=== PATIENT | male | born 1945 | race Caucasian/White ===

== ENCOUNTER 2017-05-02 10:33 | Inpatient (IN) | payer MEDICARE, OTHER, SELFPAY ==
[2017-04-18 11:41] VITALS: BP 125/73; PULSE 50; RESP 16; TEMP 36.6; O2SAT 97; BMI 31.7
[2017-04-18 12:16] LABS: Absolute Lymphocyte Count 1.09 X10^3/ul (0.83-4.51); Absolute Neutrophil Count 2.8 X10^3/uL (2.0-7.7); Basophil# 0.01 X10^3/uL; Basophil% 0.2 % (0-1); Eosinophil# 0.13 X10^3/uL; Eosinophils% 2.9 % (0-5); Hematocrit 36.2 % (40-54); Lymphocyte # 1.09 X10^3/ul (4.0); Lymphocyte % 24.3 % (19-41); Mean Corp Hgb Conc 33.1 g/gl (32-36); Mean Corpuscular Hgb 32.4 pg (27.0-32.0); Mean Corpuscular Volume 97.8 fL (80-94); Monocyte# 0.44 X10^3/uL; Monocyte% 9.8 % (0-10); Neutrophil # 2.82 X10^3/uL (2.7-7.7); Neutrophil % 62.8 % (47-70); POSITIVE COUNT NO; POSITIVE DIFFERENTIAL NO; POSITIVE MORPHOLOGY NO; Platelet Count 166 K/mm3 (150-450); RBC Distribution Width CV 14.1 % (11.6-14.6); RBC Distribution Width SD 48.4 fl (35.1-43.9); White Blood Count 4.5 K/mm3 (4.4-11.0)
[2017-04-18 12:44] LABS: Anion Gap 7 (5-15); BUN 17 mg/dL (7-18); BUN/Creat Ratio 18.4 RATIO (10-20); Calcium,Total 8.8 mg/dL (8.5-10.1); Chloride 103 mmol/L (98-107); Creatinine, Serum 0.92 mg/dL (0.70-1.30); EST Glomerular Filtration Rate 86 mL/min (>60); Est Glom Filt Rate - Afr Amer 104 mL/min (>60); Estimated Creatinine Clearance 85.63 ml/min; Glucose 98 mg/dL (74-106); Sodium Level 139 mmol/L (136-145)
--- NOTE | 2017-04-19 14:10 | PCM.HP.BLA ---
History and Physical DATE OF SERVICE: 05/02/2017 SCHEDULED PROCEDURE: Left total knee arthroplasty HISTORY OF PRESENT ILLNESS: This is a 71-year-old male who is in the left knee for approximately 8 years. Patient's pain is constant, intermittent, aching, and sharp. Patient's pain is increased with going up and down stairs, walking any amount of distance, and sitting for extended periods of time. Patient has difficult time accomplishing activities including housework, shopping, and leisure activities such as playing with grandchildren with sports. Patient feels unsafe with use of ladders. He has tripped, stumbled, and fallen secondary to his knee pain. Patient has tried conservative measures consisting of rest, ice, heat, elevation with only short-term improvement. Patient has been through formal physical therapy and home exercises with no relief in symptoms. He has had a previous cortisone injection and Synvisc injection with no relief in symptoms. Patient has had a previous left knee arthroscopy in [address] Carr. After failing conservative treatment measures and discussing all treatment options with Dr. Hartley, the patient would like to proceed with a left knee arthroplasty. Patient currently is using a cane intermittently for ambulatory assistance. Patient does have a significant medical history pertinent for coronary artery disease, atrial fibrillation, rheumatoid arthritis, hypertension, sleep apnea with the use of a CPAP machine, gastroesophageal reflux disease with Carey's esophagitis. He currently denies any chest pain, shortness of breath, fevers chills, recent infections. Patient is currently on Eliquis due to intermittent atrial fibrillation. Patient also has rheumatoid arthritis in which he requires methotrexate. We are obtaining surgical clearance from patient's primary care physician Dr. 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 REVIEW OF SYSTEMS: ROS: Const: Denies anorexia, change in appetite, fever, difficulty sleeping, weight change. CV: Reports irregular heartbeat, but denies chest pain, heart murmur and peripheral vascular disease. Resp: Denies asthma, cough, pneumonia, sleep apnea, shortness of breath, tuberculosis and wheezing. GI: Denies constipation, diarrhea, heartburn, nausea, rectal itching, bloody stools and vomiting. : . (F Genital Sx) Denies incontinence. Musculo: Reports leg swelling, pain and trouble walking, but denies weakness. Skin: Denies Raynaud's, history of shingles and tattoo. Neuro: Denies ambulatory dysfunction, dizziness, numbness/tingling and tremor. Psych: Denies anxiety, depression, insomnia, mental illness and stress. Moe/Lymph: Denies anemia, bleeding/bruising tendency and past transfusion. Reviewed, no changes. PAST MEDICAL HISTORY: Advance Care Plan: Other Directive, LIVING WILL Effective Date: 04/12/2017 Other Directive, POA Effective Date: 04/12/2017 PMH: Medical Problems: Coronary Artery Disease (CAD), Kidney Stones, Cholesterol, High Blood Pressure, Sleep Apnea, Rheumatoid Arthritis, Gerd with carey's esophagus, Atrial fibrillation, Benign prostatic hyperplasia Accidents: Fracture - (1964) RT PATELLA Surgical Hx: RT Knee- Patella - (1964) TAINA Laminectomy - (1979) L3 - L4 LT Knee Arthroscopy - (10/15/2009) [email or web address] RT Shoulder Arthroscopy W/Rotator Cuff Repair - (05/20/2010) MSK @ [facility] Anesthesia Complications: None Assistive Devices: Glasses - READING Reviewed and updated. SOCIAL HISTORY: SH: Marital: .Occupation: [employer].Work Status: Retired.Hand Dominance: Right-handed. Personal Habits: Cigarette Use: Never.Alcohol: Occasionally.Drug Use: Denies Use.Enjoy Exercising: Daily. Reviewed and updated. VITALS: Ht: 74 Wt: 242lb Wt k.771 BMI: 31.1 BP: 104/66 Pulse: 68 Resp: 16 T: 98.1 T: 36.7C ALLERGIES: No Known Drug Allergy MEDICATIONS: Eliquis 2.5 mg one by mouth every 12 hours x 15 days, Metoprolol Succinate ER 25 mg 1 by mouth every day, Methotrexate 2.5 mg 10 tabs every sunday, Flecainide Acetate 150 mg 1po qday, Lovastatin 40 mg 1 by mouth every day, Vitamin D3 2000 Unit 1 by mouth every day, Folic Acid 1 mg 1 by mouth every day, Leia Allergy 60 mg 1po qday, Ranitidine HCL 150 mg/6ml 1po bid, Hydroxychloroquine Sulfate 200 mg 2 by mouth every day, Tamsulosin HCL 0.4 mg 1 by mouth every day, Multi Vitamin 1 by mouth every day PRE-OP EXAM: General appearance:NORMAL Other: Eyes: Conjunctivae and lids: NORMAL Pupils: ERR Ears, Nose, Mouth, and Throat: NORMAL Other: Inspection of lips, teeth and gums: NORMAL Other: Neck: Examination of neck: no masses noted. Respiratory: Assessment of respiratory effort: NORMAL Other: Ausculation of lungs: clear to ausculation no wheeses, ronchi or rales. Cardiovascular: Ausculation of heart: regular rate and rhythem, no mummurs, gallops or rubs. Exam of carotid arteries: NORMAL Other: Gastrointestinal: Exam of abdomen: soft, nontender, nondistended bowel sounds present. Lymphatic: Palpation of nodes in neck: NORMAL Other: Palpation of nodes in Axillae: NORMAL Other: Neurological: see below Psychiatric: Orientation to time, place and person: NORMAL Other: Mood and affect: NORMAL Other: PHYSICAL EXAMINATION: Patient walks with an antalgic gait. Patient has varus deformity of bilateral knees. Patient has moderate effusion to the left knee. Range of motion is +5? of extension to 110? of flexion with increased pain and crepitus. Patient has medial joint line tenderness. Varus alignment is not correctable at 30?. Sensations intact to light touch. IMAGING STUDIES: 1. X-rays were obtained on January 01, 2017 at outside institution of bilateral knees which does reveal left knee severe osteoarthritis consistent with severe joint space narrowing, osteophyte formation, subchondral sclerosis, and varus deformity. Right knee shows severe osteoarthritis with osteophyte formation, subchondral sclerosis, and severe joint space narrowing and varus alignment. Right knee on sunrise view does show surgical wire in the patella. IMPRESSION: 1. Severe left knee osteoarthritis with varus deformity 2. Severe right knee osteoarthritis with varus alignment 3. Coronary artery disease 4. Hypercholesterolemia 5. Hypertension 6. Sleep apnea with CPAP use 7. Rheumatoid arthritis on methotrexate 8. Gastroesophageal reflux disease with Carey's esophagitis 9. History of atrial fibrillation: Currently regular rate and rhythm on Eliquis 10. Benign prostatic hyperplasia 11. History of kidney stones PLAN: Dr. Hartley did discuss and review with the patient all treatment options including surgical versus nonsurgical. Patient wishes to proceed with above-stated procedure. Potential risks, benefits, and complications of this procedure were discussed in detail including but not limited to , infection, nerve and blood vessel damage, persistent pain, numbness, tingling, paresthesias, blood clot, pulmonary embolism, and requirement for further surgery. The patient expressed full understanding has no further questions for the doctor. Patient does agree to proceed with the above-stated procedure and has signed the surgery consent form. Surgical clearance will be obtained by primary care physician and dance professor. Patient will undergo preoperative lab work and EKG. ___ I have re-examined the patient. There are no clinical changes since date of exam. ___ See progress notes for changes. ___ Dictated on admission Date: Time: Signature:
--- NOTE | 2017-04-19 14:21 | HP.PCM_ITS ---
History and Physical DATE OF SERVICE: 05/02/2017 SCHEDULED PROCEDURE: Left total knee arthroplasty HISTORY OF PRESENT ILLNESS: This is a 71-year-old male who is in the left knee for approximately 8 years. Patient's pain is constant, intermittent, aching, and sharp. Patient's pain is increased with going up and down stairs, walking any amount of distance, and sitting for extended periods of time. Patient has difficult time accomplishing activities including housework, shopping, and leisure activities such as playing with grandchildren with sports. Patient feels unsafe with use of ladders. He has tripped, stumbled, and fallen secondary to his knee pain. Patient has tried conservative measures consisting of rest, ice, heat, elevation with only short-term improvement. Patient has been through formal physical therapy and home exercises with no relief in symptoms. He has had a previous cortisone injection and Synvisc injection with no relief in symptoms. Patient has had a previous left knee arthroscopy [place] [address] Carr. After failing conservative treatment measures and discussing all treatment options with Dr. Hartley, the patient would like to proceed with a left knee arthroplasty. Patient currently is using a cane intermittently for ambulatory assistance. Patient does have a significant medical history pertinent for coronary artery disease, atrial fibrillation, rheumatoid arthritis, hypertension , sleep apnea with the use of a CPAP machine, gastroesophageal reflux disease with Carey's esophagitis. He currently denies any chest pain, shortness of breath, fevers chills, recent infections. Patient is currently on Eliquis due to intermittent atrial fibrillation. Patient also has rheumatoid arthritis in which he requires methotrexate. We are obtaining surgical clearance from patient's primary care physician Dr. 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 REVIEW OF SYSTEMS: ROS: Const: Denies anorexia, change in appetite, fever, difficulty sleeping, weight change. CV: Reports irregular heartbeat, but denies chest pain, heart murmur and peripheral vascular disease. Resp: Denies asthma, cough, pneumonia, sleep apnea, shortness of breath, tuberculosis and wheezing. GI: Denies constipation, diarrhea, heartburn, nausea, rectal itching, bloody stools and vomiting. : . (F Genital Sx) Denies incontinence. Musculo: Reports leg swelling, pain and trouble walking, but denies weakness. Skin: Denies Raynaud's, history of shingles and tattoo. Neuro: Denies ambulatory dysfunction, dizziness, numbness/tingling and tremor. Psych: Denies anxiety, depression, insomnia, mental illness and stress. Moe/Lymph: Denies anemia, bleeding/bruising tendency and past transfusion. Reviewed, no changes. PAST MEDICAL HISTORY: Advance Care Plan: Other Directive, LIVING WILL Effective Date: 04/12/2017 Other Directive, POA Effective Date: 04/12/2017 PMH: Medical Problems: Coronary Artery Disease (CAD), Kidney Stones, Cholesterol, High Blood Pressure, Sleep Apnea, Rheumatoid Arthritis, Gerd with carey's esophagus, Atrial fibrillation, Benign prostatic hyperplasia Accidents: Fracture - (1964) RT PATELLA Surgical Hx: RT Knee- Patella - (1964) TANIA Laminectomy - (1979) L3 - L4 LT Knee Arthroscopy - (10/15/2009) [email or web address] RT Shoulder Arthroscopy W/Rotator Cuff Repair - (05/20/2010) MSK @ [facility] Anesthesia Complications: None Assistive Devices: Glasses - READING Reviewed and updated. SOCIAL HISTORY: SH: Marital: .Occupation: [employer].Work Status: Retired.Hand Dominance: Right- handed. Personal Habits: Cigarette Use: Never.Alcohol: Occasionally.Drug Use: Denies Use.Enjoy Exercising: Daily. Reviewed and updated. VITALS: Ht: 74 Wt: 242lb Wt k.771 BMI: 31.1 BP: 104/66 Pulse: 68 Resp: 16 T: 98.1 T: 36.7C ALLERGIES: No Known Drug Allergy MEDICATIONS: Eliquis 2.5 mg one by mouth every 12 hours x 15 days, Metoprolol Succinate ER 25 mg 1 by mouth every day, Methotrexate 2.5 mg 10 tabs every sunday, Flecainide Acetate 150 mg 1po qday, Lovastatin 40 mg 1 by mouth every day, Vitamin D3 2000 Unit 1 by mouth every day, Folic Acid 1 mg 1 by mouth every day , Leia Allergy 60 mg 1po qday, Ranitidine HCL 150 mg/6ml 1po bid, Hydroxychloroquine Sulfate 200 mg 2 by mouth every day, Tamsulosin HCL 0.4 mg 1 by mouth every day, Multi Vitamin 1 by mouth every day PRE-OP EXAM: General appearance:NORMAL Other: Eyes: Conjunctivae and lids: NORMAL Pupils: ERR Ears, Nose, Mouth, and Throat: NORMAL Other: Inspection of lips, teeth and gums: NORMAL Other: Neck: Examination of neck: no masses noted. Respiratory: Assessment of respiratory effort: NORMAL Other: Ausculation of lungs: clear to ausculation no wheeses, ronchi or rales. Cardiovascular: Ausculation of heart: regular rate and rhythem, no mummurs, gallops or rubs. Exam of carotid arteries: NORMAL Other: Gastrointestinal: Exam of abdomen: soft, nontender, nondistended bowel sounds present. Lymphatic: Palpation of nodes in neck: NORMAL Other: Palpation of nodes in Axillae: NORMAL Other: Neurological: see below Psychiatric: Orientation to time, place and person: NORMAL Other: Mood and affect: NORMAL Other: PHYSICAL EXAMINATION: Patient walks with an antalgic gait. Patient has varus deformity of bilateral knees. Patient has moderate effusion to the left knee. Range of motion is +5? of extension to 110? of flexion with increased pain and crepitus. Patient has medial joint line tenderness. Varus alignment is not correctable at 30?. Sensations intact to light touch. IMAGING STUDIES: 1. X-rays were obtained on January 01, 2017 at outside institution of bilateral knees which does reveal left knee severe osteoarthritis consistent with severe joint space narrowing, osteophyte formation, subchondral sclerosis, and varus deformity. Right knee shows severe osteoarthritis with osteophyte formation, subchondral sclerosis, and severe joint space narrowing and varus alignment. Right knee on sunrise view does show surgical wire in the patella. IMPRESSION: 1. Severe left knee osteoarthritis with varus deformity 2. Severe right knee osteoarthritis with varus alignment 3. Coronary artery disease 4. Hypercholesterolemia 5. Hypertension 6. Sleep apnea with CPAP use 7. Rheumatoid arthritis on methotrexate 8. Gastroesophageal reflux disease with Carey's esophagitis 9. History of atrial fibrillation: Currently regular rate and rhythm on Eliquis 10. Benign prostatic hyperplasia 11. History of kidney stones PLAN: Dr. Hartley did discuss and review with the patient all treatment options including surgical versus nonsurgical. Patient wishes to proceed with above- stated procedure. Potential risks, benefits, and complications of this procedure were discussed in detail including but not limited to , infection , nerve and blood vessel damage, persistent pain, numbness, tingling, paresthesias, blood clot, pulmonary embolism, and requirement for further surgery. The patient expressed full understanding has no further questions for the doctor. Patient does agree to proceed with the above-stated procedure and has signed the surgery consent form. 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 Patient will undergo preoperative lab work and EKG. ___ I have re-examined the patient. There are no clinical changes since date of exam. ___ See progress notes for changes. ___ Dictated on admission Date: Time: Signature:
[2017-04-26 17:37] LABS: Albumin, Serum 3.6 g/dL (3.2-5.0)
[2017-05-02] VITALS (10 sets, daily range): BP systolic 109–126; BP diastolic 51–72; PULSE 51–78; RESP 16–18; TEMP 36.3–36.8; O2SAT 92–98; BMI 31.7
[2017-05-02] MEDS: Lactated Ringers 1,000 ML 999 ML IV (12:00)
[2017-05-02] MEDS: Celecoxib 200 MG Capsule 400 MG PO (12:24)
[2017-05-02] MEDS: oxyCODONE HCl Cr 10 MG Tablet PO (12:25)
[2017-05-02] MEDS: Acetaminophen 500 MG Tablet 1000 MG PO ×2 (12:25→23:22)
[2017-05-02] MEDS: Cefazolin 2 GM in 0.9% Normal Saline 100 ML IV (12:56)
--- NOTE | 2017-05-02 15:31 | PCM.OPRPT ---
Report of Operation Date of Procedure: 05/02/17 Pre-Operative Diagnosis: Left knee primary osteoarthritis Post-Operative Diagnosis: Left knee primary osteoarthritis Surgery/Procedure Performed:: Left total knee replacement, posterior stabilized Description of Surgical Findings:: Stable knee with good patella tracking capsule inspector: Terry Parker Type of Anesthesia:: Spinal Anesthesiologist: Del Benites Special Medications: 2 g Ancef, 2 grams TXA lavage in wound at end of case, 10 mg Decadron, joint cocktail (5 mg Duramorph, 30 mL of 0.5% Ropivicaine, 1000 units of epinephrine, 30 mg of Toradol) Specimen's removed: Bony cuts Estimated Blood Loss (mL): 50 mL Fluids Replaced: 200 mL crystalloid Description of Procedure: Implants used: 1. Jhon size 5 triathlon posterior stabilized distal femoral component 2. Jhon size 6 universal tibial baseplate 3. Jhon X3 11 mm PS polyethylene 4. Jhon X3 40 mm asymmetric patella Brief history operative indications: 71-year-old m with history of left knee osteoarthritis with radiographic findings with loss of joint space, osteophyte formation and subchondral sclerosis. Failed conservative measures as mentioned in the H&P. Discussion of total knee arthroplasty as well as risk and benefits were discussed the patient including but not limited to blood loss, DVTs, PEs, neurovascular damage, general risk of anesthesia including loss of life, and stiffness or instability were discussed with patient. Patient demonstrated understanding and was able to sign informed consent. Procedure: On the date of procedure patient's left lower extremity was marked in the preoperative area. The patient was then taken back to the operating room where the patient was placed on the table in the supine position. All bony prominences were identified a well-padded. Anesthesia assumed control of the C-spine and airway and remained controlled throughout the remainder of the procedure. A tourniquet was placed on the left upper thigh and the leg was prepped in a sterile fashion. The surgeon then scrubbed at this time .Upon reentering the room left lower extremity was draped in a standard orthopedic fashion. A timeout was then called and everyone agreed upon the side, the site, the procedure to be performed, patient's identity and antibiotics given. Esmarch bandage was used to exsanguinate the extremity and the tourniquet was placed up to 250 mmHg with the knee in flexion. A midline skin incision was made and sharp dissection was taken down through skin subcutaneous tissue and fat. The standard medial parapatellar incision was made and the patella was subluxed laterally. The standard deep MCL release was done and the fat pad was resected. Next our attention was directed to the femur. Navigation pins were placed, navigation was registered. The distal femoral cutting block was pinned into place and 9 mm of distal femur resection was completed. The distal femoral cut was verified with navigation. The knee was then placed in deep flexion in the standard [employer]ie App sizing guide was used to place the femoral component in 3? external rotation based on the posterior condyles. A size 5 4-in-1 cutting block was selected and pinned into place. The anterior cut was then made and checked for notching. The subsequent anterior chamfer cuts, posterior condylar cuts and posterior chamfer cuts were made while ensuring the MCL and LCL were protected. Our attention was then turned to the tibia where the navigation pins were placed, navigation was registered. [place] tibial cutting guide was used to make the appropriate tibial cut 90 degrees from the mechanical axis. Navigation was then used to verify the cut. A size 6 tibial base plate was selected. the knee was flexed to 90 degrees and the soft tissues and posterior osteophytes were removed from the joint. 40 cc of the periarticular injection was injected into the posterior medial corner of the joint. The appropriate trials were then placed on the femur and tibia. A trial polyethylene was trialed to ensure proper balancing and stability of the knee. Patella tracking, was then verified and corrected appropriately as needed. The appropriate tibial internal rotation was then marked with a bovie. Our attention was then directed to the patella. The patella was everted and a flat resection was made. The lug holes were drilled and the patella trial was placed. Patellar tracking was checked and deemed appropriate. Once we were happy lug holes were drilled for the femur and trial components were removed. the tibia was subluxed and pinned into place and the keel was punched and the canal was reamed. Final components were verified and opened, and cement was mixed in a vacuum. [place] Simplex cement was used. The wound was copiously irrigated with normal saline. When the cement was ready the components were cemented into place starting with the tibia, femur and finally the patella. The trial poly component was placed and the knee was placed in full extension. All excess cement was removed in the process. Once the cement had cured the tracking, alignment and balance were verified and a size 1 mm polyethylene component was placed. Once the final components were placed the wound was copiously irrigated with normal saline solution and the periarticular injection was given. The wound was closed in a layer blake fashion using #1 vicryl interrupted sutures for the arthrotomy, 2-0 interrupted Vicryl suture for the subcuticular layer and marlo for final skin closure. A sterile compressive dressing was then placed. The patient was then awakened from anesthesia, transferred to the [facility] and transferred to the PACU for recovery. Post op plan DVT ppx: ASA 325mg, thigh high compression stockings Follow up: in office in 2 weeks for wound check PT: to start POD #0 at hospital, outpatient PT should be arranged. My physician resident assistant was a vital part of this case. He was important in appropriate retraction during the case, and protection of soft tissues during bony cuts. His intimate knowledge of the case and my steps aided in safe and expedient completion of the procedure as well as appropriate position of the leg during the case. He was also vital in assisting with closure under my direct supervision. Grafts/Implants Used: [place] triathlon total knee - Complications None - Admit VTE Documentation VTE Present on Admission: No VTE Mechan Device Prophylaxis: SCD's, Thigh High DAHLIA Hose VTE Pharm Prophylaxis ordered?: Yes
--- NOTE | 2017-05-02 15:35 | OP.PCM_ITS ---
Report of Operation Date of Procedure: 05/02/17 Pre-Operative Diagnosis: Left knee primary osteoarthritis Post-Operative Diagnosis: Left knee primary osteoarthritis Surgery/Procedure Performed:: Left total knee replacement, posterior stabilized Description of Surgical Findings:: Stable knee with good patella tracking clay house worker: Terry Parker Type of Anesthesia:: Spinal Anesthesiologist: Del Benites Special Medications: 2 g Ancef, 2 grams TXA lavage in wound at end of case, 10 mg Decadron, joint cocktail (5 mg Duramorph, 30 mL of 0.5% Ropivicaine, 1000 units of epinephrine, 30 mg of Toradol) Specimen's removed: Bony cuts Estimated Blood Loss (mL): 50 mL Fluids Replaced: 200 mL crystalloid Description of Procedure: Implants used: 1. Jhon size 5 triathlon posterior stabilized distal femoral component 2. Jhon size 6 universal tibial baseplate 3. Jhon X3 11 mm PS polyethylene 4. Jhon X3 40 mm asymmetric patella Brief history operative indications: 71-year-old m with history of left knee osteoarthritis with radiographic findings with loss of joint space, osteophyte formation and subchondral sclerosis. Failed conservative measures as mentioned in the H&P. Discussion of total knee arthroplasty as well as risk and benefits were discussed the patient including but not limited to blood loss, DVTs, PEs, neurovascular damage , general risk of anesthesia including loss of life, and stiffness or instability were discussed with patient. Patient demonstrated understanding and was able to sign informed consent. Procedure: On the date of procedure patient's left lower extremity was marked in the preoperative area. The patient was then taken back to the operating room where the patient was placed on the table in the supine position. All bony prominences were identified a well-padded. Anesthesia assumed control of the C- spine and airway and remained controlled throughout the remainder of the procedure. A tourniquet was placed on the left upper thigh and the leg was prepped in a sterile fashion. The surgeon then scrubbed at this time .Upon reentering the room left lower extremity was draped in a standard orthopedic fashion. A timeout was then called and everyone agreed upon the side, the site, the procedure to be performed, patient's identity and antibiotics given. Esmarch bandage was used to exsanguinate the extremity and the tourniquet was placed up to 250 mmHg with the knee in flexion. A midline skin incision was made and sharp dissection was taken down through skin subcutaneous tissue and fat. The standard medial parapatellar incision was made and the patella was subluxed laterally. The standard deep MCL release was done and the fat pad was resected. Next our attention was directed to the femur. Navigation pins were placed, navigation was registered. The distal femoral cutting block was pinned into place and 9 mm of distal femur resection was completed. The distal femoral cut was verified with navigation. The knee was then placed in deep flexion in the standard Zympi sizing guide was used to place the femoral component in 3? external rotation based on the posterior condyles. A size 5 4-in-1 cutting block was selected and pinned into place. The anterior cut was then made and checked for notching. The subsequent anterior chamfer cuts, posterior condylar cuts and posterior chamfer cuts were made while ensuring the MCL and LCL were protected. Our attention was then turned to the tibia where the navigation pins were placed , navigation was registered. [employer] tibial cutting guide was used to make the appropriate tibial cut 90 degrees from the mechanical axis. Navigation was then used to verify the cut. A size 6 tibial base plate was selected. the knee was flexed to 90 degrees and the soft tissues and posterior osteophytes were removed from the joint. 40 cc of the periarticular injection was injected into the posterior medial corner of the joint. The appropriate trials were then placed on the femur and tibia. A trial polyethylene was trialed to ensure proper balancing and stability of the knee. Patella tracking, was then verified and corrected appropriately as needed. The appropriate tibial internal rotation was then marked with a bovie. Our attention was then directed to the patella. The patella was everted and a flat resection was made. The lug holes were drilled and the patella trial was placed. Patellar tracking was checked and deemed appropriate. Once we were happy lug holes were drilled for the femur and trial components were removed. the tibia was subluxed and pinned into place and the keel was punched and the canal was reamed. Final components were verified and opened, and cement was mixed in a vacuum. Jhon Simplex cement was used. The wound was copiously irrigated with normal saline. When the cement was ready the components were cemented into place starting with the tibia, femur and finally the patella. The trial poly component was placed and the knee was placed in full extension. All excess cement was removed in the process. Once the cement had cured the tracking, alignment and balance were verified and a size 1 mm polyethylene component was placed. Once the final components were placed the wound was copiously irrigated with normal saline solution and the periarticular injection was given. The wound was closed in a layer blake fashion using #1 vicryl interrupted sutures for the arthrotomy, 2-0 interrupted Vicryl suture for the subcuticular layer and marlo for final skin closure. A sterile compressive dressing was then placed. The patient was then awakened from anesthesia, transferred [facility] and transferred to the PACU for recovery. Post op plan DVT ppx: ASA 325mg, thigh high compression stockings Follow up: in office in 2 weeks for wound check PT: to start POD #0 at hospital, outpatient PT should be arranged. My physician administrative services assistant was a vital part of this case. He was important in appropriate retraction during the case, and protection of soft tissues during bony cuts. His intimate knowledge of the case and my steps aided in safe and expedient completion of the procedure as well as appropriate position of the leg during the case. He was also vital in assisting with closure under my direct supervision. Grafts/Implants Used: Brandon triathlon total knee - Complications None - Admit VTE Documentation VTE Present on Admission: No VTE Mechan Device Prophylaxis: SCD's, Thigh High DAHLIA Hose VTE Pharm Prophylaxis ordered?: Yes
--- NOTE | 2017-05-02 15:35 | RAD_ITS ---
STUDY: X-RAY - LEFT KNEE REASON FOR EXAM: Male, 71 years old. Post operative evaluation of knee arthroplasty. TECHNIQUE: 2 view(s) of the knee. COMPARISON: None. FINDINGS: The patient is status post total knee arthroplasty. The standard femoral and tibial components are normally located without disruption or migration of the hardware. The patella has been resurfaced and is properly located. Normal postoperative soft tissue changes. Anterior incision closed with marlo. RAD/Knee 1 or 2 Views IMPRESSION: Status post left knee arthroplasty with no untoward bone, joint or hardware findings. Electronically Signed: Elise Frye MD at 17:39 EST , Service support ,
[2017-05-02] MEDS: Scopolamine 1mg/72hr Patch 1 PATCH TD (15:40)
[2017-05-02 15:51] LABS: Bedside Glucose 107 mg/dL (70-110)
--- NOTE | 2017-05-02 17:27 | PN_ITS ---
Subjective: Patient seen and examined. Patient underwent left total knee arthroplasty today , 05/02/[address] Morgan. Hospitalist services requested for medical management. He has a past medical history of coronary artery disease, hyperlipidemia, hypertension, obstructive sleep apnea, rheumatoid arthritis, GERD with Larsen's esophagus, paroxysmal atrial fibrillation, BPH. Patient denies pain currently. Denies chest pain, shortness of breath. Sensory intact to left lower extremity. Patient denies nausea, vomiting. Denies other complaints. - Physical Exam General: Alert, Oriented x3, Cooperative, No apparent distress HEENT: Atraumatic, PERRLA, EOMI, Normocephalic Neck: Supple, No JVD, Negative Carotid Bruits Lungs: Clear to auscultation, Normal air movement Cardiovascular: Regular rate, Regular Rhythm, Normal S1, Normal S2, No murmurs Abdomen: Bowel Sounds Present, Soft, Non Tender, Non-Distended Extremities: No clubbing, No cyanosis, No edema, Capillary Refill Less than 3 Seconds Skin: No rashes, No breakdown Musculoskeletal: No Tenderness to Palpation of Joints or Extremities Neurological: Cranial nerves II-XII grossly intact, Neuro grossly intact Psych/Mental Status: Normal Affect, Appropriate Vital Signs Temp Pulse Resp BP Pulse Ox 98.2 F 73 18 120/51 L 96 05/02/17 17:04 05/02/17 17:04 05/02/17 17:04 05/02/17 17:04 05/02/17 17:04 Oxygen Delivery Method Room Air Weight: 112.1 kg Body Mass Index (BMI) 31.7 Finger Stick Blood Glucose 107 Intake and Output for Last 24 Hours 04/30/17 05/01/17 05/02/17 23:59 23:59 23:59 Intake Total 2500 / 2500 Balance 2500 / 2500 POC Glucose 05/02/17 15:46 POC Glucose 107 Assessment/Plan 1. Status post left total knee arthroplasty 05/02/[address] Morgan- management per ortho. PT/OT. PRN pain regimen. Incentive spirometer. 2. CAD-continue aspirin, statin, Eliquis, beta-nina. Denies chest pain. 3. Hyperlipidemia-continue statin. 4. Hypertension-stable, continue home regimen. 5. Obstructive sleep apnea-continue home CPAP. 6. Rheumatoid arthritis-continue methotrexate, Plaquenil regimen. 7. Paroxysmal atrial fibrillation-rate controlled. Continue metoprolol, flecainide, Eliquis. 8. GERD with Larsen's esophagus-continue famotidine. 9. BPH-continue Flomax. DVT prophylaxis-Eliquis. This patient was seen by JUANITO Kern under the supervision of Dr. Sullivan.
[2017-05-02] MEDS: Cefazolin 1 GM/50 ML BAG IV (20:28)
[2017-05-02] MEDS: Lactated Ringers 1,000 ML 125 ML IV (20:28)
[2017-05-02] MEDS: Tamsulosin HCl 0.4 MG Capsule PO (23:19)
[2017-05-02] MEDS: Metoprolol Tartrate 25 MG Tablet PO (23:20)
[2017-05-02] MEDS: Atorvastatin Calcium 10 MG Tablet PO (23:20)
[2017-05-02] MEDS: Famotidine 20 MG Tablet PO (23:21)
[2017-05-02] MEDS: Senna/Docusate Sodium 1 Tablet 2 TABLET PO (23:21)
[2017-05-02] MEDS: Flecainide 150 MG Tablet 75 MG PO (23:22)
[2017-05-03 03:29] VITALS: BP 103/58; PULSE 56; RESP 18; TEMP 36.6; O2SAT 96
[2017-05-03] MEDS: Acetaminophen 500 MG Tablet 1000 MG PO ×3 (05:19→22:03)
[2017-05-03] MEDS: Cefazolin 1 GM/50 ML BAG IV (05:20)
[2017-05-03] MEDS: Lactated Ringers 1,000 ML 15 ML IV (05:20)
[2017-05-03 06:07] LABS: Hematocrit 31.8 % (40-54); Hemoglobin 10.3 g/dl (13.0-16.5); Mean Corp Hgb Conc 32.4 g/gl (32-36); Mean Corpuscular Hgb 31.4 pg (27.0-32.0); Mean Platelet Vol. 10.9 fl (6.2-12.0); Platelet Count 174 K/mm3 (150-450); RBC Distribution Width SD 49.7 fl (35.1-43.9); Red Blood Count 3.28 M/mm3 (4.6-6.2); White Blood Count 12.8 K/mm3 (4.4-11.0)
[2017-05-03 06:25] LABS: Scan Indicated on CBC? Y/N NO
[2017-05-03 06:32] LABS: Anion Gap 7 (5-15); BUN 17 mg/dL (7-18); BUN/Creat Ratio 21.6 RATIO (10-20); Calcium,Total 8.2 mg/dL (8.5-10.1); Chloride 108 mmol/L (98-107); Creatinine, Serum 0.79 mg/dL (0.70-1.30); EST Glomerular Filtration Rate 103 mL/min (>60); Est Glom Filt Rate - Afr Amer 125 mL/min (>60); Estimated Creatinine Clearance 78.78 ml/min; Glucose 112 mg/dL (74-106); Potassium 4.2 mmol/L (3.5-5.1); Sodium Level 139 mmol/L (136-145)
[2017-05-03] MEDS: Famotidine 20 MG Tablet PO ×2 (07:57→22:02)
[2017-05-03] MEDS: Senna/Docusate Sodium 1 Tablet 2 TABLET PO ×2 (07:57→22:02)
[2017-05-03] MEDS: Multivitamins,Therapeutic Tablet 1 TABLET PO (07:57)
[2017-05-03] MEDS: Flecainide 150 MG Tablet 75 MG PO ×2 (07:58→22:02)
[2017-05-03] MEDS: Folic Acid 1 MG Tablet PO (07:59)
[2017-05-03] MEDS: Aspirin E.C. 81 MG Tablet PO (07:59)
[2017-05-03] MEDS: Hydroxychloroquine 200 MG Tablet 400 MG PO (07:59)
[2017-05-03] MEDS: HYDROCHLOROTHIAZIDE 12.5 MG CAPSULE PO (07:59)
[2017-05-03] MEDS: Loratadine 10 MG Tablet 5 MG PO (08:00)
[2017-05-03] MEDS: Glucerna Shake 120 ML LIQUID PO ×2 (08:09→17:19)
[2017-05-03 08:17] VITALS: PULSE 62
[2017-05-03] MEDS: Metoprolol Tartrate 25 MG Tablet PO (08:17)
[2017-05-03] MEDS: APIXABAN 2.5 MG TABLET PO ×2 (08:17→22:00)
[2017-05-03 08:25] VITALS: BP 114/68; PULSE 62; RESP 16; TEMP 36.6; O2SAT 99
--- NOTE | 2017-05-03 09:22 | PCM.PN.HOSP ---
Subjective: Feeling good. No current complaints at this time. Vitals/I&O's: Vital Signs Temp Pulse Resp BP Pulse Ox 36.6 C 62 16 114/68 99 05/03/17 08:25 05/03/17 08:25 05/03/17 08:25 05/03/17 08:25 05/03/17 08:25 Oxygen Delivery Method Room Air Weight: 112.1 kg Body Mass Index (BMI) 31.7 Finger Stick Blood Glucose 107 Intake and Output for Last 24 Hours 05/01/17 05/02/17 05/03/17 23:59 23:59 23:59 Intake Total 2500 / 2500 1011 / 1011 Output Total 1650 / 1650 Balance 2500 / 2500 -639 / -639 General: Alert, No apparent distress HEENT: Atraumatic, Normocephalic Neck: No Nodes, Thyroid Normal Size and Texture Lungs: Clear to auscultation, Normal air movement, No rhonchi, No wheeze Cardiovascular: Regular rate, Regular Rhythm, Normal S1, Normal S2, No murmurs Abdomen: Bowel Sounds Present, Soft, Non Tender, Non-Distended, No Hepato-splenomegaly Extremities: No edema, No Calf Tenderness Psych/Mental Status: Normal Affect, Appropriate Laboratory Results 05/02/17 15:46: POC Glucose 107 05/03/17 05:32: WBC 12.8 H, RBC 3.28 L, Hgb 10.3 L, Hct 31.8 L, MCV 97.0 H, MCH 31.4, MCHC 32.4, RDW 14.0, RDW Differential 49.7 H, Plt Count 174, MPV 10.9 05/03/17 05:32: Sodium 139, Potassium 4.2, Chloride 108 H, Carbon Dioxide 24.0, Anion Gap 7, BUN 17, Creatinine 0.79, Estim Creat Clear Calc 78.78, Est GFR (MDRD) Af Amer 125, Est GFR (MDRD) Non-Af 103, BUN/Creatinine Ratio 21.6 H, Glucose 112 H, Calcium 8.2 L Current Medications Acetaminophen (Tylenol) 1,000 mg PO Q8 [facility] Last Admin: 05/03/17 05:19 Dose: 1,000 mg Apixaban (Eliquis) 2.5 mg PO Q12 [facility] Last Admin: 05/03/17 08:17 Dose: 2.5 mg Aspirin (Ecotrin) 81 mg PO DAILY@0800 [facility] Last Admin: 05/03/17 07:59 Dose: 81 mg Atorvastatin Calcium (Lipitor) 10 mg PO QHS [facility] Last Admin: 05/02/17 23:20 Dose: 10 mg Cholecalciferol (Vitamin D) 2,000 unit PO DAILY [facility] Last Admin: 05/03/17 08:01 Dose: 2,000 unit Famotidine (Pepcid) 20 mg PO BID [facility] Last Admin: 05/03/17 07:57 Dose: 20 mg Flecainide Acetate (Tambocor) 75 mg PO BID [facility] Last Admin: 05/03/17 07:58 Dose: 75 mg Folic Acid (Folic Acid) 1 mg PO DAILY@0800 [facility] Last Admin: 05/03/17 07:59 Dose: 1 mg Hydrochlorothiazide (Hydrochlorothiazide) 12.5 mg PO DAILY [facility] Last Admin: 05/03/17 07:59 Dose: 12.5 mg Hydroxychloroquine S[facility]ate ([facility]il) [facility] Last Admin: 05/03/17 07:59 Dose: 400 mg Ketorolac Tromethamine (Toradol) 15 mg IV Q6H PRN PRN PRN Reason: MILD-MOD PAIN (1-5/10) Loratadine (Claritin) 5 mg PO DAILY [facility] Last Admin: 05/03/17 08:00 Dose: 5 mg Methotrexate (Methotrexate) 20 mg PO Sa@1000 [facility] Metoprolol Tartrate (Lopressor (Beta Art)) 25 mg PO BID [facility] Last Admin: 05/03/17 08:17 Dose: 25 mg Morphine Sulfate (Morphine) 2 - 4 mg IV Q2H PRN PRN PRN Reason: SEVERE PAIN (6-10/10) Multivitamins (Multivitamin) 1 tablet PO DAILY@0800 [facility] Last Admin: 05/03/17 07:57 Dose: 1 tablet Nutritional Formula (Lactose Free) (Glucerna Shake) 120 ml PO TIDCM [facility] Last Admin: 05/03/17 08:09 Dose: 120 ml Ondansetron HCl (Zofran) 4 mg IV Q8H PRN PRN PRN Reason: NAUSEA Oxycodone HCl (Oxyir) 5 - 10 mg PO Q4H PRN PRN PRN Reason: MOD-SEVERE PAIN (4-10/10) Promethazine HCl (Phenergan (Ll)) 12.5 mg IM Q6H PRN PRN; Protocol PRN Reason: NAUSEA/VOMITING Senna/Docusate Sodium (Senokot-S, Vivian-Colace) 2 tablet PO BID [facility] Last Admin: 05/03/17 07:57 Dose: 2 tablet Sodium Chloride () 5 - 30 ml IV UD PRN PRN Reason: SALINE FLUSH Tamsulosin HCl (Flomax) 0.4 mg PO QHS [facility] Last Admin: 05/02/17 23:19 Dose: 0.4 mg Assessment/Plan 1. Status post left total knee arthroplasty Management per the primary service 2. Coronary artery disease: Continue with aspirin, statin, beta-art. 3. Paroxysmal atrial fibrillation Stable, continue with metoprolol, flecainide and Eliquis. 4. DVT prophylaxis: Patient is currently anticoagulated on Eliquis. Code Visit Inpatient E&M: 18052 Subs Hosp L2
--- NOTE | 2017-05-03 09:25 | PN_ITS ---
Subjective: Feeling good. No current complaints at this time. Vitals/I&O's: Vital Signs Temp Pulse Resp BP Pulse Ox 36.6 C 62 16 114/68 99 05/03/17 08:25 05/03/17 08:25 05/03/17 08:25 05/03/17 08:25 05/03/17 08:25 Oxygen Delivery Method Room Air Weight: 112.1 kg Body Mass Index (BMI) 31.7 Finger Stick Blood Glucose 107 Intake and Output for Last 24 Hours 05/01/17 05/02/17 05/03/17 23:59 23:59 23:59 Intake Total 2500 / 2500 1011 / 1011 Output Total 1650 / 1650 Balance 2500 / 2500 -639 / -639 General: Alert, No apparent distress HEENT: Atraumatic, Normocephalic Neck: No Nodes, Thyroid Normal Size and Texture Lungs: Clear to auscultation, Normal air movement, No rhonchi, No wheeze Cardiovascular: Regular rate, Regular Rhythm, Normal S1, Normal S2, No murmurs Abdomen: Bowel Sounds Present, Soft, Non Tender, Non-Distended, No Hepato- splenomegaly Extremities: No edema, No Calf Tenderness Psych/Mental Status: Normal Affect, Appropriate Laboratory Results 05/02/17 15:46: POC Glucose 107 05/03/17 05:32: WBC 12.8 H, RBC 3.28 L, Hgb 10.3 L, Hct 31.8 L, MCV 97.0 H, MCH 31.4, MCHC 32.4, RDW 14.0, RDW Differential 49.7 H, Plt Count 174, MPV 10.9 05/03/17 05:32: Sodium 139, Potassium 4.2, Chloride 108 H, Carbon Dioxide 24.0, Anion Gap 7, BUN 17, Creatinine 0.79, Estim Creat Clear Calc 78.78, Est GFR ( MDRD) Af Amer 125, Est GFR (MDRD) Non-Af 103, BUN/Creatinine Ratio 21.6 H, Glucose 112 H, Calcium 8.2 L Current Medications Acetaminophen (Tylenol) 1,000 mg PO Q8 [facility] Last Admin: 05/03/17 05:19 Dose: 1,000 mg Apixaban (Eliquis) 2.5 mg PO Q12 [facility] Last Admin: 05/03/17 08:17 Dose: 2.5 mg Aspirin (Ecotrin) 81 mg PO DAILY@0800 [facility] Last Admin: 05/03/17 07:59 Dose: 81 mg Atorvastatin Calcium (Lipitor) 10 mg PO QHS [facility] Last Admin: 05/02/17 23:20 Dose: 10 mg Cholecalciferol (Vitamin D) 2,000 unit PO DAILY [facility] Last Admin: 05/03/17 08:01 Dose: 2,000 unit Famotidine (Pepcid) 20 mg PO BID [facility] Last Admin: 05/03/17 07:57 Dose: 20 mg Flecainide Acetate (Tambocor) 75 mg PO BID [facility] Last Admin: 05/03/17 07:58 Dose: 75 mg Folic Acid (Folic Acid) 1 mg PO DAILY@0800 [facility] Last Admin: 05/03/17 07:59 Dose: 1 mg Hydrochlorothiazide (Hydrochlorothiazide) 12.5 mg PO DAILY [facility] Last Admin: 05/03/17 07:59 Dose: 12.5 mg Hydroxychloroquine Sulfate (Plaquenil) [facility] Last Admin: 05/03/17 07:59 Dose: 400 mg Ketorolac Tromethamine (Toradol) 15 mg IV Q6H PRN PRN PRN Reason: MILD-MOD PAIN (1-5/10) Loratadine (Claritin) 5 mg PO DAILY [facility] Last Admin: 05/03/17 08:00 Dose: 5 mg Methotrexate (Methotrexate) 20 mg PO Sa@1000 [facility] Metoprolol Tartrate (Lopressor (Beta Art)) 25 mg PO BID [facility] Last Admin: 05/03/17 08:17 Dose: 25 mg Morphine Sulfate (Morphine) 2 - 4 mg IV Q2H PRN PRN PRN Reason: SEVERE PAIN (6-10/10) Multivitamins (Multivitamin) 1 tablet PO DAILY@0800 [facility] Last Admin: 05/03/17 07:57 Dose: 1 tablet Nutritional Formula (Lactose Free) (Glucerna Shake) 120 ml PO TIDCM [facility] Last Admin: 05/03/17 08:09 Dose: 120 ml Ondansetron HCl (Zofran) 4 mg IV Q8H PRN PRN PRN Reason: NAUSEA Oxycodone HCl (Oxyir) 5 - 10 mg PO Q4H PRN PRN PRN Reason: MOD-SEVERE PAIN (4-10/10) Promethazine HCl (Phenergan (Ll)) 12.5 mg IM Q6H PRN PRN; Protocol PRN Reason: NAUSEA/VOMITING Senna/Docusate Sodium (Senokot-S, Vivian-Colace) 2 tablet PO BID [facility] Last Admin: 05/03/17 07:57 Dose: 2 tablet Sodium Chloride () 5 - 30 ml IV UD PRN PRN Reason: SALINE FLUSH Tamsulosin HCl (Flomax) 0.4 mg PO QHS [facility] Last Admin: 05/02/17 23:19 Dose: 0.4 mg Assessment/Plan 1. Status post left total knee arthroplasty * Management per the primary service 2. Coronary artery disease: * Continue with aspirin, statin, beta-art. 3. Paroxysmal atrial fibrillation * Stable, continue with metoprolol, flecainide and Eliquis. 4. DVT prophylaxis: Patient is currently anticoagulated on Eliquis. Code Visit Inpatient E&M: 15722 Subs Hosp L2
--- NOTE | 2017-05-03 10:22 | PN.ORTHO_ITS ---
Subjective: The patient was sitting in bedside chair upon examination. Patient denies any chest pain, shortness of breath, dizziness, lightheadedness, nausea or vomiting , or calf pain. Pain is controlled on medications. No adverse overnight events. She currently is doing very well with no pain. Patient has been tolerating walking. He does wish to try to go home today.. Objective: Vital signs stable and afebrile. Patient is able to plantarflex and dorsiflex actively. Sensation is intact to light touch to saphenous, sural, superficial and deep peroneal, and tibial distribution. Dressing is clean dry and intact. Mild drainage to distal dressing Negative Homans bilaterally, negative signs and symptoms of DVT. - Physical Exam General: Alert, Oriented x3, Cooperative, No apparent distress Vital Signs Temp Pulse Resp BP Pulse Ox 97.9 F 62 16 114/68 99 05/03/17 08:25 05/03/17 08:25 05/03/17 08:25 05/03/17 08:25 05/03/17 08:25 Oxygen Delivery Method Room Air Weight: 112.1 kg Body Mass Index (BMI) 31.7 Finger Stick Blood Glucose 107 Intake and Output for Last 24 Hours 05/01/17 05/02/17 05/03/17 23:59 23:59 23:59 Intake Total 2500 / 2500 1011 / 1011 Output Total 1650 / 1650 Balance 2500 / 2500 -639 / -639 Laboratory Tests Past 24 Hrs 05/03/17 05/03/17 05:32 05:32 WBC 12.8 H RBC 3.28 L Hgb 10.3 L Hct 31.8 L MCV 97.0 H MCH 31.4 MCHC 32.4 RDW 14.0 RDW Differential 49.7 H Plt Count 174 MPV 10.9 Sodium 139 Potassium 4.2 Chloride 108 H Carbon Dioxide 24.0 Anion Gap 7 BUN 17 Creatinine 0.79 Estim Creat Clear Calc 78.78 Est GFR (MDRD) Af Amer 125 Est GFR (MDRD) Non-Af 103 BUN/Creatinine Ratio 21.6 H Glucose 112 H Calcium 8.2 L POC Glucose 05/02/17 15:46 POC Glucose 107 Assessment/Plan 1. S/P left total knee arthroplasty POD #1 2. Continue Pain Medications: Tylenol and OxyIR 3. DVT Prophylaxis: Patient has been placed back on his Eliquis 2.5 mg every 12 hours 4. PT/OT: Weightbearing as tolerated 5. H & H: 10.3/31.8, asymptomatic 6. Leukocytosis: Currently 12.8, afebrile. Patient did receive Decadron intraoperatively 7. Encouraged Incentive Spirometry 8. Disposition: Plan will be for possible discharge home today if pain is well controlled and patient tolerates physical therapy. Prescriptions will be E scribed to [facility]. Patient will follow-up per postop instructions.
--- NOTE | 2017-05-03 10:29 | DCINST_ITS ---
Discharge Diet: No Restrictions Discharge Activity: May Not Drive May shower in (days): 1 - Turned dressing away from water Ice area for (Minutes): 20 - every hour while awake. Weight Bearing Status: Weight bearing as tolerated Elevate: Operative Extremity Additional Activity Instructions:: Wear elastic stockings for 2 weeks after your surgery. Call your doctor if your incision/area has: Continuous Slow Oozing, Sudden Increased Bleeding, Increased Pain/ Swelling, Increased Redness, Foul Smelling Discharge Call your doctor if you observe: Fever of 101 or Higher, Coldness, Increased Pain, Numbness or Tingling, Change in Color, Calf discomfort, Uncontrolled pain Remove Dressing in (days):: 4 - Brenda to remove on May 07, 2017 Additional Instructions: Follow [place] [facility] postop instructions Allergies/Adverse Reactions: Allergies No Known Allergies Allergy (Verified 04/18/17 11:01) Medications to take at Discharge Apixaban [Eliquis] 2.5 mg PO Q12H 04/18/17 Aspirin E.C. [Ecotrin] 81 mg PO DAILY@0800 04/18/17 Cholecalciferol (Vitamin D3) [Vitamin D3] 2,000 unit PO DAILY 04/18/17 Fexofenadine HCl [Leia Allergy] 60 mg PO DAILY 04/18/17 Flecainide [Tambocor] 75 mg PO BID 04/18/17 Folic Acid 1 mg PO DAILY@0800 04/18/17 Hydrochlorothiazide [Hctz] 12.5 mg PO DAILY 04/18/17 Hydroxychloroquine [Plaquenil] 400 mg PO DAILY 04/18/17 Lovastatin [Mevacor] 40 mg PO QHS 04/18/17 Methotrexate 20 mg PO SA 04/18/17 Metoprolol Tartrate [Lopressor (beta nina)] 25 mg PO BID 04/18/17 Multivitamin [Multiple Vitamins] 1 each PO DAILY 04/18/17 Ranitidine [Zantac] 150 mg PO BID 04/18/17 Tamsulosin HCl [Flomax] 0.4 mg PO QHS 04/18/17 Acetaminophen [Tylenol] 1,000 mg PO Q8 #90 tab 05/03/17 Oxycodone [Oxyir] 5 - 10 mg PO Q4H PRN PRN 7 Days #80 tablet 05/03/17 Senna/Docusate Sodium [Senokot-S] 2 tab PO BID #20 tab 05/03/17 The following prescriptions were given: Oxycodone [Oxyir] 5 - 10 mg PO Q4H PRN PRN 7 Days #80 tablet PRN Reason: Mod-Severe Pain (-12/05) Acetaminophen [Tylenol] 1,000 mg PO Q8 #90 tab Senna/Docusate Sodium [Senokot-S] 2 tab PO BID #20 tab Primary Care Physician: [facility] [Primary Care Provider] - Please Follow Up With: Physical therapy When: 05/07/17 @ 9:00 am Please Follow Up With: Terry Parker PA-C When: 05/16/17 @ 10:30 am
--- NOTE | 2017-05-03 11:27 | CASEMGMT ---
JEFF GIBBONS Face to Face with patient for initial transition planning/care coordination assessment. RN SHAI introduced self and role at [facility]. Patient sitting in chair, alert and oriented. Patient willing to participate in assessment and is able to answer all questions appropriately. Care providers, pharmacy, and demographics verified. See link attached. Patient wishes to discharge home and is setup with [facility] for outpatient therapy. Patient states that will be providing transportation. Patient states he has no further needs or concerns at this time. CM to follow for discharge planning needs that may arise. Disposition Plan: Patient to discharge home with outpatient therapy, family support, and follow-up plans in place.
[2017-05-03 14:25] VITALS: BP 120/61; PULSE 60; RESP 16; TEMP 36.7; O2SAT 98
[2017-05-03 19:36] VITALS: BP 118/62; PULSE 58; RESP 16; TEMP 36.6; O2SAT 100
[2017-05-03] MEDS: Tamsulosin HCl 0.4 MG Capsule PO (22:00)
[2017-05-03] MEDS: Atorvastatin Calcium 10 MG Tablet PO (22:01)
[2017-05-03] MEDS: oxyCODONE 5 MG Tablet PO (22:03)
[2017-05-03 22:13] VITALS: BP 138/68; PULSE 52
[2017-05-04 01:36] VITALS: BP 120/68; PULSE 54; RESP 18; TEMP 36.8; O2SAT 97
[2017-05-04] MEDS: oxyCODONE 5 MG Tablet PO ×3 (04:05→11:39)
[2017-05-04] MEDS: Acetaminophen 500 MG Tablet 1000 MG PO ×2 (05:50→13:56)
[2017-05-04 06:49] LABS: Hematocrit 30.1 % (40-54); Hemoglobin 9.8 g/dl (13.0-16.5); Mean Corp Hgb Conc 32.6 g/gl (32-36); Mean Corpuscular Hgb 32.2 pg (27.0-32.0); Mean Platelet Vol. 11.3 fl (6.2-12.0); Platelet Count 146 K/mm3 (150-450); RBC Distribution Width CV 14.4 % (11.6-14.6); Red Blood Count 3.04 M/mm3 (4.6-6.2); White Blood Count 7.9 K/mm3 (4.4-11.0)
[2017-05-04 06:52] LABS: Scan Indicated on CBC? Y/N NO
[2017-05-04 07:01] LABS: Anion Gap 5 (5-15); BUN 16 mg/dL (7-18); BUN/Creat Ratio 20.5 RATIO (10-20); Calcium,Total 8.1 mg/dL (8.5-10.1); Chloride 105 mmol/L (98-107); Creatinine, Serum 0.78 mg/dL (0.70-1.30); EST Glomerular Filtration Rate 104 mL/min (>60); Est Glom Filt Rate - Afr Amer 126 mL/min (>60); Estimated Creatinine Clearance 78.78 ml/min; Glucose 100 mg/dL (74-106); Potassium 3.8 mmol/L (3.5-5.1); Sodium Level 141 mmol/L (136-145)
[2017-05-04] MEDS: Hydroxychloroquine 200 MG Tablet 400 MG PO (07:54)
[2017-05-04] MEDS: Flecainide 150 MG Tablet 75 MG PO (07:54)
[2017-05-04] MEDS: Loratadine 10 MG Tablet 5 MG PO (07:54)
[2017-05-04] MEDS: Famotidine 20 MG Tablet PO (07:55)
[2017-05-04] MEDS: Multivitamins,Therapeutic Tablet 1 TABLET PO (07:55)
[2017-05-04] MEDS: Senna/Docusate Sodium 1 Tablet 2 TABLET PO (07:55)
[2017-05-04] MEDS: Folic Acid 1 MG Tablet PO (07:55)
[2017-05-04] MEDS: Aspirin E.C. 81 MG Tablet PO (07:55)
[2017-05-04] MEDS: HYDROCHLOROTHIAZIDE 12.5 MG CAPSULE PO (07:56)
[2017-05-04] MEDS: APIXABAN 2.5 MG TABLET PO (07:56)
[2017-05-04] MEDS: Glucerna Shake 120 ML LIQUID PO ×3 (08:03→11:39)
[2017-05-04 08:10] VITALS: BP 121/64; PULSE 57; RESP 18; TEMP 36.9; O2SAT 96
--- NOTE | 2017-05-04 12:43 | PN.ORTHO_ITS ---
Subjective: The patient was eating lunch during examination. Patient denies any chest pain , shortness of breath, dizziness, lightheadedness, nausea or vomiting, or calf pain. He does report pain in the left knee but pain is controlled on medications. No adverse overnight events. Patient is ready to go home today. Objective: Vital signs stable and afebrile. Patient is able to plantarflex and dorsiflex actively. Sensation is intact to light touch to saphenous, sural, superficial and deep peroneal, and tibial distribution. Dressing is clean dry and intact. Minimal drainage to distal dressing is stable Negative Homans bilaterally, negative signs and symptoms of DVT. - Physical Exam General: Alert, Oriented x3, Cooperative, No apparent distress Vital Signs Temp Pulse Resp BP Pulse Ox 98.5 F 57 L 18 121/64 H 96 05/04/17 08:10 05/04/17 08:10 05/04/17 08:10 05/04/17 08:10 05/04/17 08:10 Oxygen Delivery Method Room Air Weight: 112.1 kg Body Mass Index (BMI) 31.7 Finger Stick Blood Glucose 107 Intake and Output for Last 24 Hours 05/02/17 05/03/17 05/04/17 23:59 23:59 23:59 Intake Total 2500 / 2500 1011 / 1011 1500 / 1500 Output Total 1650 / 1650 800 / 800 Balance 2500 / 2500 -639 / -639 700 / 700 Laboratory Tests Past 24 Hrs 05/04/17 05/04/17 05:30 05:30 WBC 7.9 RBC 3.04 L Hgb 9.8 L Hct 30.1 L MCV 99.0 H MCH 32.2 H MCHC 32.6 RDW 14.4 RDW Differential 49.0 H Plt Count 146 L MPV 11.3 Sodium 141 Potassium 3.8 Chloride 105 Carbon Dioxide 31.0 Anion Gap 5 BUN 16 Creatinine 0.78 Estim Creat Clear Calc 78.78 Est GFR (MDRD) Af Amer 126 Est GFR (MDRD) Non-Af 104 BUN/Creatinine Ratio 20.5 H Glucose 100 Calcium 8.1 L Assessment/Plan 1. S/P left total knee arthroplasty POD #2 2. Continue Pain Medications: Tylenol and OxyIR 3. DVT Prophylaxis: Patient has been placed back on his Eliquis 2.5 mg every 12 hours 4. PT/OT: Weightbearing as tolerated 5. H & H: 9.8/30.1, asymptomatic 6. Leukocytosis: Resolved currently 7.9, afebrile. Patient did receive Decadron intraoperatively 7. Encouraged Incentive Spirometry 8. Disposition: Plan will be for discharge home today if pain is well controlled and patient tolerates physical therapy. Prescriptions will be E scribed to [facility]. Patient will follow-up per postop instructions.
[2017-05-04 13:59] VITALS: BP 134/76; PULSE 68; RESP 18; TEMP 36.6; O2SAT 98
== END 2017-05-04 14:32 | disposition home or self-care (01) | DRG 470 ==
PROVIDERS: Admitting Provider Specialist
PROC: 0SRD0J9 Replacement of Left Knee Joint with Synthetic Substitute, Cemented, Open Approach (ICD-10-PCS; CPT 27447; principal; 2017-05-02 12:30)
DX: M17.12 Unilateral primary osteoarthritis, left knee (principal); M06.9 Rheumatoid arthritis, unspecified; I48.0 Paroxysmal atrial fibrillation; I25.10 Atherosclerotic heart disease of native coronary artery without angina pectoris; G47.33 Obstructive sleep apnea (adult) (pediatric); E78.5 Hyperlipidemia, unspecified; K22.70 Barrett's esophagus without dysplasia; K21.9 Gastro-esophageal reflux disease without esophagitis; N40.0 Benign prostatic hyperplasia without lower urinary tract symptoms; I10 Essential (primary) hypertension; Z79.01 Long term (current) use of anticoagulants; Z79.899 Other long term (current) drug therapy
CPT/HCPCS: 36415; 73560; 80048; 82040; 82962; 85025; 85027; 87081; 97110; 97116; 97162; 97166; 97530; 97535; 99251; J7120; G0463; J2405

== ENCOUNTER → 2019-01-28 11:41 | Outpatient (CLI) | payer OTHER, SELFPAY ==
--- NOTE | 2019-01-28 11:44 | EKG12_ITS ---
Test Reason : EVAL VA BENEFITS Blood Pressure : / mmHG Vent. Rate : 051 BPM Atrial Rate : 051 BPM P-R Int : 178 ms QRS Dur : 098 ms QT Int : 444 ms P-R-T Axes : 068 024 017 degrees QTc Int : 409 ms Sinus bradycardia Otherwise normal ECG Confirmed by RACHELLE TAYLOR, AVIVA ([id number]), desk editor PATSY KIRK ([id number]) on 01/29/2019 1:08:04 PM Referred By: AGUSTÍN CASON Confirmed By:AVIVA BUSH MD
== END ==
PROVIDERS: Referring Provider Orthopaedic Surgery; Visit Provider Orthopaedic Surgery
DX: I10 Essential (primary) hypertension (principal); I48.91 Unspecified atrial fibrillation
CPT/HCPCS: 93005

== ENCOUNTER → 2019-02-21 08:20 | Outpatient (CLI) | payer OTHER, SELFPAY ==
--- NOTE | 2019-02-21 08:25 | ECHOCS_ITS ---
Reason For Study: HTN Procedure This was a 2D Doppler, Color Flow transthoracic echocardiogram. Contrast injection was performed. The study was technically difficult. Exam performed in department. Left Ventricle Normal LV size. Moderate concentric left ventricular hypertrophy. The estimated ejection fraction is 55 %. Stage 3 diastolic dysfunction. No regional wall motion abnormalities noted. Right Ventricle Normal RV size. Normal systolic function. Atria The left atrium is severely enlarged. The right atrium is moderately enlarged. Mitral Valve Normal mitral valve. Moderate (2+) mitral valve insufficiency. Tricuspid Valve Normal tricuspid valve. Moderate (2+) tricuspid valve insufficiency. Pulmonary artery systolic pressure is 55 mmHg. Moderate pulmonary hypertension. Aortic Valve Normal aortic valve. Pulmonic Valve Normal pulmonic valve. Great Vessels Normal aortic root. The pulmonary artery is normal size. Normal inferior vena cava. Pericardium/Pleural No pericardial effusion. Medication 22 gauge I.V. with prn adaptor inserted into right arm. Diluted definity 4ml given slow IV push to enhance endocardial definition. MMode/2D Measurements & Calculations LVIDd: 5.2 cm IVSd: 1.9 cm Ao root diam: 4.3 cm LVIDs: 3.8 cm LVPWd: 1.5 cm LA dimension: 5.6 cm RVDd: 5.2 cm FS: 26.9 % LAV(MOD-bp): 148.3 ml LA A4 area: 33.9 cm2 RA A4 area: 27.3 cm2 LAV(MOD-bp) Indexed: 63.0 ml/m2 LAV(MOD-sp2): 147.8 ml LAV(MOD-sp4): 135.1 ml Time Measurements MV dec time: 0.27 sec Doppler Measurements & Calculations MV E max alessandro: 94.3 cm/sec MV V2 max: 98.4 cm/sec MV P1/2t max alessandro: 99.0 cm/sec MV A max alessandro: 49.7 cm/sec MV max P.9 mmHg MV P1/2t: 98.3 msec MV E/A: 1.9 MV V2 mean: 47.7 cm/sec MV dec slope: 295.1 cm/sec2 MV mean P.1 mmHg MV V2 VTI: 26.8 cm MVA(P1/2t): 2.2 cm2 Ao V2 max: 109.1 cm/sec LV V1 max: 81.0 cm/sec MR max alessandro: 525.1 cm/sec Ao max P.8 mmHg LV V1 max P.6 mmHg MR max P.3 mmHg Ao V2 mean: 78.5 cm/sec LV V1 mean P.2 mmHg MR mean alessandro: 404.5 cm/sec Ao mean P.7 mmHg LV V1 mean: 51.1 cm/sec MR mean P.3 mmHg Ao V2 VTI: 24.0 cm LV V1 VTI: 17.4 cm MR VTI: 200.9 cm PA V2 max: 66.4 cm/sec TR max alessandro: 356.9 cm/sec TR max P.0 mmHg Interpretation Summary Normal LV size. Moderate concentric left ventricular hypertrophy. The estimated ejection fraction is 55 %. Stage 3 diastolic dysfunction. Moderate (2+) mitral valve insufficiency. Moderate pulmonary hypertension. Ordering Physician: Davian Hubbard Referring Physician: Davian Hubbard Performed By: Mike Simmons RCS
== END ==
PROVIDERS: Referring Provider Orthopaedic Surgery; Visit Provider Orthopaedic Surgery
DX: I25.10 Atherosclerotic heart disease of native coronary artery without angina pectoris (principal); I48.91 Unspecified atrial fibrillation; I10 Essential (primary) hypertension
CPT/HCPCS: 93306; Q9957; A4216; C8929

== ENCOUNTER 2023-09-23 09:41 | Emergency (ER) | payer OTHER, SELFPAY ==
[2023-09-23 09:42] VITALS: BP 111/68; PULSE 69; RESP 16; TEMP 36.4; O2SAT 100; BMI 30.2
--- NOTE | 2023-09-23 10:25 | CT_ITS ---
INDICATION: Kidney Stone EXAMINATION: CT ABDOMEN AND PELVIS WITHOUT CONTRAST - CT Abdomen And Pelvis W/O Contrast Injection TECHNIQUE: Helically acquired images were obtained of the abdomen and pelvis without oral or IV contrast. The protocol utilizes one or more of the following dose reduction techniques: automated exposure control, adjustment of mA and/or kV according to patient size,and/or use of iterative reconstruction technique. IV Contrast dosage and agent: None. Oral contrast: None. RADIATION DOSAGE (If Supplied By Facility): CTDIvol = ( 13.03 ) mGy, DLP = ( 660.72 ) mGycm COMPARISON: No relevant prior comparison study available FINDINGS: LOWER CHEST: Mild chronic changes. No infiltrate. Coronary calcifications. No cardiomegaly or pericardial effusion. LIVER: Homogeneous. No focal mass. GALLBLADDER AND BILIARY TREE: No calcified gallstones. No gallbladder distension or wall edema. No intra- or extrahepatic biliary ductal dilation. PANCREAS: No focal cystic or solid mass. SPLEEN: Normal size without focal cystic or solid mass. ADRENAL GLANDS: No nodules. KIDNEYS AND URETERS: Normal renal size and position. No hydronephrosis. PERITONEUM: No ascites or free air. No other fluid collection. BOWEL: No evidence of acute appendicitis. No stomach or bowel distension. No focal inflammatory change. LYMPH NODES: No enlarged mesenteric or retroperitoneal lymph nodes. VESSELS: There are sclerotic calcifications of the abdominal aorta. Mild fusiform suprarenal and infrarenal aortic aneurysm measuring up to 2.9 cm in transverse diameter. URINARY BLADDER: Not well distended. REPRODUCTIVE ORGANS: Prostatic calcifications. No pelvic mass. ABDOMINAL WALL: Degenerative changes of the spine. BONES: No lytic or blastic abnormality. CT/Abdomen/Pelvis without Cont IMPRESSION: 1. No focal acute inflammatory process. 2. No evidence of intrauterine tract stones or hydronephrosis. 3. Mild fusiform abdominal aortic aneurysm. Electronically Signed: Rick Childress MD at 12:22 EDT ,
--- NOTE | 2023-09-23 10:25 | EDS_ITS ---
HPI History of Present Illness Chief Complaint: Flank Pain Informant: patient and spouse/S.O. Narrative Narrative: 78-year-old male presenting to the emergency room with right-sided abdominal pain. 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 He states that around 10:00 last night he began to have a pain in the right flank and today notes more on the right lower side of his abdomen. Nothing seems to make it better or worse. No nausea vomiting. No testicular pain. No urinary symptoms. He has had a couple bowel movement since the pain began which she describes as normal. He has a history of atrial fibri llation on Eliquis, prostate cancer (currently on break from Lupron therapy), inguinal hernia repair, rheumatoid arthritis, and kidney stones. He denies any fevers. No bulging/masses of the abdomen felt. No rashes. No reported fever. History of AAA that is monitored yearly [facility] Medical History (Updated 09/23/23 @ 12:[address] Johnny Jonas, DO) Kidney stone Rheumatoid arthritis Prostate cancer Atrial fibrillation Home Medications ?Medication ?Instructions ?Recorded ?Last Taken ?Type apixaban 2.5 mg tablet (Eliquis) 5 mg PO Q12H blood thinner 04/18/17 Unknown History cholecalciferol (vitamin D3) 50 2,000 unit PO DAILY supplement 04/18/17 Unknown History mcg (2,000 unit) capsule (Vitamin D3) folic acid 1 mg tablet 1 mg PO DAILY@0800 supplement 04/18/17 Unknown History hydrochlorothiazide 25 mg tablet 12.5 mg PO DAILY bp 04/18/17 Unknown History hydroxychloroquine 200 mg tablet 400 mg PO DAILY arthritis 04/18/17 Unknown History methotrexate sodium 2.5 mg tablet 25 mg PO SA arthritis 04/18/17 Unknown History metoprolol tartrate 25 mg tablet 25 mg PO BID bp 04/18/17 05/02/17 07:30 History multivitamin (Multiple Vitamins 1 ea PO DAILY supplement 04/18/17 Unknown History tablet) tamsulosin 0.4 mg capsule 0.4 mg PO QHS prostate 04/18/17 Unknown History atorvastatin 80 mg tablet 80 mg PO QHS 09/23/23 Unknown History carbidopa 25 mg-levodopa 100 mg 1 tab PO 4X/DAY 09/23/23 Unknown History tablet (Sinemet) carvedilol 3.125 mg tablet 3.125 mg PO BID 09/23/23 Unknown History dofetilide 500 mcg capsule 500 mcg PO BID 09/23/23 Unknown History lisinopril 2.5 mg tablet 2.5 mg PO DAILY 09/23/23 Unknown History omeprazole 20 mg capsule,delayed 20 mg PO BID 09/23/23 Unknown History release spironolactone 25 mg tablet 37.5 mg PO DAILY 09/23/23 Unknown History (Aldactone) Allergy/AdvReac Type Severity Reaction Status Date / Time No Known Allergies Allergy Verified 04/18/17 11:01 Surgical History (Updated 09/23/23 @ 10:[address] Johnny Jonas DO) H/O inguinal hernia repair Social History Smoking Status: Never smoker ROS ROS ED Constitutional Constitutional ED: Denies chills, fever(s) or weight loss Eyes Eyes: Denies change in vision or diplopia ENT ENT ED: Denies ear pain, rhinorrhea or sore throat Cardiovascular Cardiovascular: Denies chest pain, orthopnea, palpitations or racing heartbeat Respiratory/Chest Respiratory/Chest: Denies cough, dyspnea or orthopnea Gastrointestinal Gastrointestinal: Reports abdominal pain; Denies diarrhea, nausea or vomiting Genitourinary Genitourinary ED: Denies dysuria, hematuria or urinary frequency Musculoskeletal Musculoskeletal: Reports back pain; Denies arthralgias or myalgias Integumentary Denies abscess or rash Neurologic Neurologic: Denies headache(s) or weakness Psychiatric Psychiatric: Denies anxiety, depression, suicidal ideation or suicidal thoughts Endocrine Endocrinology: Denies polydipsia, polyphagia or polyuria Allergic/Immunologic Allergic/Immunologic ED: Denies mouth swelling, tongue swelling or urticaria EXAM Physical Exam Const Vital Signs: 09/23/23 09:42 Temperature 97.6 F L Temperature Source Oral Pulse Rate 69 Respiratory Rate 16 Blood Pressure 111/68 Blood Pressure Mean 82 Pulse Ox 100 Oxygen Delivery Method Room Air Positive well nourished and well developed General Appearance ED: well developed HEENT Reports normocephalic, head/scalp atraumatic and moist mucous membranes Eyes PERRL and EOMs intact bilaterally Neck no lymphadenopathy, supple and no JVD Resp normal respiratory effort and clear to auscultation bilaterally Cardio regular rate, regular rhythm and no murmurs GI GI Narrative: Mild tenderness to palpation in the right mid upper abdomen. Auscultation: normoactive bowel sounds Palpation: soft; Negative for guarding, mass or rebound tenderness present Back/Spine no CVA tenderness and normal ROM Extremity normal to inspection General Extremety ED: Negative for edema General Extremity: Negative for edema Neuro oriented x3 and CN's II-XII intact bilaterally Sensorium / Orientation: alert Motor Exam: strength 5/5 throughout Psych mental status grossly normal Mood & Affect: Negative for depressed or tearful Skin no rashes or lesions noted and no wounds MDM MDM MDM Narrative Medical decision making narrative: Differential diagnosis includes but not limited to kidney stone UTI colitis appendicitis pyelonephritis perforated viscus hernia abdominal wall strain ruptured AAA White count 6.4 hemoglobin 13.4. Creatinine 0.92 with a BUN of 22. Urinalysis is negative. CT abdomen pelvis does not demonstrate any ureterolithiasis colitis perinephric stranding evidence of small bowel or incarcerated/angulated hernia. Abdominal aortic aneurysm measuring 2.9 cm there is some increased stool noted on the right side of his abdomen. Patient has intermittent pain. He has some mild tenderness to palpation. This could be a abdominal wall strain from his work with the water heater yesterday. We talked about home treatment as well as return instructions he and his note understanding. History & Record Review Discussion w/independent historian: Patient and Significant other Lab Data Attestation: I reviewed the patient's lab results. Labs: Laboratory Results - last 24 hr 09/23/23 09/23/23 10:00 11:02 WBC 6.4 RBC 4.21 L Hgb 13.4 Hct 40.9 MCV 97.1 H MCH 31.8 MCHC 32.8 RDW Std Deviation 47.8 H RDW Coeff of Michael 13.4 Plt Count 174 MPV 11.7 Immature Gran % (Auto) 0.300 Neut % (Auto) 67.4 Lymph % (Auto) 21.4 Dickens % (Auto) 9.8 Eos % (Auto) 0.6 Baso % (Auto) 0.5 Absolute Neuts (auto) 4.3 Absolute Lymphs (auto) 1.36 Nucleated RBC % 0 Sodium 137 Potassium 3.9 Chloride 104 Carbon Dioxide 28.0 Anion Gap 5 BUN 22 H Creatinine 0.92 Estim Creat Clear Calc 86.07 Est GFR (MDRD) Af Amer 103 Est GFR (MDRD) Non-Af 85 BUN/Creatinine Ratio 24.0 H Glucose 103 Calcium 9.1 Urine Color Yellow Urine Clarity Clear Urine pH 6.5 Ur Specific [place] 1.015 Urine Protein Negative Urine Glucose (UA) Normal Urine Ketones Negative Urine Occult Blood 25 H Urine Nitrite Negative Urine Bilirubin Negative Urine Urobilinogen Normal Ur Leukocyte Esterase Negative Urine RBC 0 SEEN Urine WBC 0 SEEN Ur Squamous Epith Cells 0 SEEN Urine Bacteria 0 SEEN Urine Mucus 0 SEEN Radiography Diagnostic Testing: Clinical Impression(s) from Imaging Studies Abdomen/Pelvis CT 09/23/23 10:25 IMPRESSION: 1. No focal acute inflammatory process. 2. No evidence of intrauterine tract stones or hydronephrosis. 3. Mild fusiform abdominal aortic aneurysm. Electronically Signed: Rick Childress MD at 12:22 EDT Reading Location ID and State: [facility] / [place] Tel , Service support , Discharge Plan Triage Chief Complaint: Flank Pain ED Provider: Johnny Jonas Dx/Rx/DC Orders Clinical Impression: Abdominal pain, Abdominal wall strain Instructions: Abdominal Pain, ED Muscle Strain, Abdomen Prescriptions: No Action multivitamin [Multiple Vitamins] 1 EACH tablet 1 ea PO DAILY methotrexate sodium 2.5 MG tablet 25 mg PO SA tamsulosin 0.4 MG capsule 0.4 mg PO QHS folic acid 1 MG tablet 1 mg PO DAILY@0800 hydrochlorothiazide 25 MG tablet 12.5 mg PO DAILY hydroxychloroquine 200 MG tablet 400 mg PO DAILY metoprolol tartrate 25 MG tablet 25 mg PO BID cholecalciferol (vitamin D3) [Vitamin D3] 2,000 UNIT capsule 2,000 unit PO DAILY Eliquis 2.5 MG tablet 5 mg PO Q12H dofetilide 500 mcg capsule 500 mcg PO BID atorvastatin 80 mg tablet 80 mg PO QHS carbidopa-levodopa [Sinemet] 25-100 mg tablet 1 tab PO 4X/DAY carvedilol 3.125 mg tablet 3.125 mg PO BID Rx Instructions: must administer with a meal/food omeprazole 20 mg capsule,delayed release(DR/EC) 20 mg PO BID spironolactone [Aldactone] 25 mg tablet 37.5 mg PO DAILY lisinopril 2.5 mg tablet 2.5 mg PO DAILY [facility] [Primary Care Provider] - As Needed Activity Restrictions/Additional Instructions: If new or persistent symptoms or any concerns please return to emergency for repeat examination. Print Language: Lithuanian Disposition Disposition: Home, Self Care
[2023-09-23] MEDS: Ketorolac 30 MG/ML Syringe 15 MG IV (10:41)
[2023-09-23] MEDS: 0.9% Normal Saline (1000mL) 1,000 ML 250 ML IV (10:42)
[2023-09-23 10:51] LABS: Anion Gap 5 (5-15); BUN 22 mg/dL (7-18); Calcium,Total 9.1 mg/dL (8.5-10.1); Chloride 104 mmol/L (98-107); Creatinine, Serum 0.92 mg/dL (0.70-1.30); EST Glomerular Filtration Rate 85 mL/min (>60); Est Glom Filt Rate - Afr Amer 103 mL/min (>60); Estimated Creatinine Clearance 86.07 ml/min; Glucose 103 mg/dL (74-106); Potassium 3.9 mmol/L (3.5-5.1); Sodium Level 137 mmol/L (136-145)
[2023-09-23 10:52] LABS: Absolute Lymphocyte Count 1.36 X10^3/uL (0.83-4.51); Absolute Neutrophil Count 4.3 X10^3/uL (2.0-7.7); Basophil# 0.03 X10^3/uL; Basophil% 0.5 % (0-1); Eosinophil# 0.04 X10^3/uL; Eosinophils% 0.6 % (0-5); Hematocrit 40.9 % (40-54); Hemoglobin 13.4 g/dL (13.0-16.5); Lymphocyte # 1.36 X10^3/ul (0.83-4.51); Lymphocyte % 21.4 % (19-41); Mean Corp Hgb Conc 32.8 g/dL (32-36); Mean Corpuscular Hgb 31.8 pg (27.0-32.0); Mean Corpuscular Volume 97.1 fL (80-94); Mean Platelet Vol. 11.7 fl (6.2-12.0); Monocyte# 0.62 X10^3/uL; Monocyte% 9.8 % (0-10); NRBC Flagged by Analyzer 0 % (0-5); Neutrophil # 4.28 X10^3/uL (2.7-7.7); Neutrophil % 67.4 % (47-70); Platelet Count 174 K/mm3 (150-450); RBC Distribution Width CV 13.4 % (11.6-14.6); RBC Distribution Width SD 47.8 fl (35.1-43.9); Red Blood Count 4.21 M/mm3 (4.6-6.2); White Blood Count 6.4 K/mm3 (4.4-11.0)
[2023-09-23 11:10] LABS: Bacteria 0 SEEN /hpf (None Seen); Mucous, Urine 0 SEEN /hpf (<or=2+); Red Blood Cells-Urine 0 SEEN /hpf (0-5); Squamous Epithelial Cells - UA 0 SEEN /hpf (0-5); White Blood Cells 0 SEEN /hpf (0-5)
[2023-09-23 11:13] LABS: Color, Urine Yellow (Yellow); Glucose, Dipstick Normal (Normal); Ketone-Dipstick Negative (Negative); Leukocyte Esterase-Dipstick Negative /ul (Negative); Nitrite-Dipstick Negative (Negative); Occult Blood-Urine 25 /ul (Negative); Protein-Dipstick Negative (Negative); Specific Gravity, Urine 1.015 (1.002-1.030); Urine Bilirubin Dipstick Negative (Negative); Urine Clarity Clear (Clear); Urine Urobilinogen Normal (Normal); Urine pH 6.5 (5.0 - 8.0)
[2023-09-23 11:42] VITALS: BP 100/66; PULSE 62; RESP 18; O2SAT 94
[2023-09-23 12:43] VITALS: BP 98/67; PULSE 53; RESP 16; TEMP 36.6; O2SAT 94
== END 2023-09-23 13:04 | disposition home or self-care (01) ==
PROVIDERS: Emergency Provider Emergency Medicine; Visit Provider Emergency Medicine
DX: S39.011A Strain of muscle, fascia and tendon of abdomen, initial encounter (principal); I48.91 Unspecified atrial fibrillation; Z79.01 Long term (current) use of anticoagulants; Z79.899 Other long term (current) drug therapy; X58.XXXA Exposure to other specified factors, initial encounter
CPT/HCPCS: 36415; 74176; 80048; 81001; 85025; 96374; 99283; J7030; A4216

== ENCOUNTER 2023-12-18 13:18 | Day surgery (SDC) | payer OTHER, SELFPAY ==
[2023-12-18] VITALS (14 sets, daily range): BP systolic 130–179; BP diastolic 64–95; PULSE 47–89; RESP 14–17; TEMP 36.1–37; O2SAT 73–100; BMI 29.7
--- NOTE | 2023-12-18 14:33 | CT_ITS ---
STUDY: CT CERVICAL SPINE WITHOUT CONTRAST REASON FOR EXAM: Male, 78 years old. Trauma RADIATION DOSAGE (If Supplied By Facility): CTDIvol = ( 22.48 ) mGy, DLP = ( 423.11 ) mGycm TECHNIQUE: High resolution transaxial imaging was performed without contrast material. Sagittal and coronal images were reconstructed. Individualized dose optimization techniques were used for this CT. COMPARISON: None FINDINGS: No definite acute fracture/dislocation. The cervical junction is intact. C1-C2 articulation is intact. Curvature is within normal limits. There is normal alignment. Facet joints are intact at all levels bilaterally. No jumped facets. There is multilevel spondyloarthropathy. Multilevel degenerative disc disease seen. Multilevel loss of disc height. Multilevel posterior marginal osteophytes and disc bulges. Multilevel neural foraminal narrowing. Visualized paraspinal soft tissues and structures show no acute abnormalities. CT/Spine Cervical without Contras IMPRESSION: There is no definite acute fracture/dislocation. Degenerative changes. Electronically Signed: Rishi Mandujano MD at 16:05 EDT ,
--- NOTE | 2023-12-18 14:33 | CT_ITS ---
STUDY: CT BRAIN WITHOUT CONTRAST REASON FOR EXAM: Male, 78 years old. trauma RADIATION DOSAGE (If Supplied By Facility): CTDIvol = ( 44.99 ) mGy, DLP = ( 846.73 ) mGycm TECHNIQUE: Transaxial CT imaging of the brain was performed without administration of intravenous contrast material. Individualized dose optimization techniques were used for this CT. COMPARISON: No relevant priors. , FINDINGS: Normal soft tissue structures. Normal calvarium. Normal size ventricles and extra-axial spaces for the patient''s age. Normal white matter tracts of the cerebral hemispheres. Normal basal ganglia and thalami. Normal brainstem. Normal cerebellum. There is no intracranial hemorrhage. There are no findings of an acute ischemic infarction. Normal visualized paranasal sinuses. CT/Brain/Head without Contrast IMPRESSION: Normal unenhanced CT scan of the brain. Electronically Signed: Rishi Mandujano MD at 16:03 EDT ,
--- NOTE | 2023-12-18 14:34 | EDS_ITS ---
HPI History of Present Illness Chief Complaint: Laceration Narrative Narrative: 78-year-old male past medical history of atrial fibrillation on Eliquis, Parkinson's disease, presents with fall with injury to his occiput and right ear. At around 1130 this morning, 3 hours ago, he states that he was picking corn. Went to take off his sweatshirt. In doing so, he states he fell backwards and hit the front end of a tractor. He sustained injury to the back of his head, and to his right ear. He denies loss of consciousness, no neck pain, no other injury. [facility] Medical History Kidney stone Rheumatoid arthritis Prostate cancer Atrial fibrillation Home Medications ?Medication ?Instructions ?Recorded ?Last Taken ?Type apixaban 2.5 mg tablet (Eliquis) 5 mg PO Q12H blood thinner 04/18/17 Unknown History cholecalciferol (vitamin D3) 50 2,000 unit PO DAILY supplement 04/18/17 Unknown History mcg (2,000 unit) capsule (Vitamin D3) folic acid 1 mg tablet 1 mg PO DAILY@0800 supplement 04/18/17 Unknown History hydrochlorothiazide 25 mg tablet 12.5 mg PO DAILY bp 04/18/17 Unknown History hydroxychloroquine 200 mg tablet 400 mg PO DAILY arthritis 04/18/17 Unknown History methotrexate sodium 2.5 mg tablet 25 mg PO SA arthritis 04/18/17 Unknown History metoprolol tartrate 25 mg tablet 25 mg PO BID bp 04/18/17 05/02/17 07:30 History multivitamin (Multiple Vitamins 1 ea PO DAILY supplement 04/18/17 Unknown History tablet) tamsulosin 0.4 mg capsule 0.4 mg PO QHS prostate 04/18/17 Unknown History atorvastatin 80 mg tablet 80 mg PO QHS 09/23/23 Unknown History carbidopa 25 mg-levodopa 100 mg 1 tab PO 4X/DAY 09/23/23 Unknown History tablet (Sinemet) carvedilol 3.125 mg tablet 3.125 mg PO BID 09/23/23 Unknown History dofetilide 500 mcg capsule 500 mcg PO BID 09/23/23 Unknown History lisinopril 2.5 mg tablet 2.5 mg PO DAILY 09/23/23 Unknown History omeprazole 20 mg capsule,delayed 20 mg PO BID 09/23/23 Unknown History release spironolactone 25 mg tablet 37.5 mg PO DAILY 09/23/23 Unknown History (Aldactone) bisoprolol fumarate 5 mg tablet 5 mg PO DAILY 12/18/23 12/17/23 History Allergy/AdvReac Type Severity Reaction Status Date / Time No Known Allergies Allergy Verified 12/18/23 13:19 Surgical History H/O inguinal hernia repair Social History Smoking Status: Never smoker ROS ROS ED ROS Narrative Focused review of systems positive for laceration on occiput of scalp, no neck pain. Positive avulsion laceration with through and through laceration to right ear. Denies other injury. EXAM Physical Exam Narrative Exam Narrative: GCS 15. ABCs are intact. Cardiovascular examination reveals an irregular bradycardia. Lungs are clear to auscultation bilaterally. Abdomen soft and nontender with normal active bowel sounds. Neurological examination is nonfocal and nonlateralizing, and consistent with Parkinson's. He is alert and oriented x 3, but at his baseline according to his . Examination of the scalp in the occipital area reveals a 2 cm laceration running vertically without active bleeding. No apparent galeal involvement. Inspection of the right ear does show a through and through laceration on the top outer portion of the auricle, with large skin avulsion surrounding. Const Vital Signs: 12/18/23 13:19 12/18/23 14:18 12/18/23 15:00 Temperature 97 F L 98.6 F Temperature Source Temporal Oral Pulse Rate 48 L 50 L 89 Respiratory Rate 16 16 14 Blood Pressure 135/84 H 130/80 H 136/64 H Blood Pressure Mean 101 96 88 Pulse Ox 99 99 98 Oxygen Delivery Method Room Air Room Air 12/18/23 15:32 12/18/23 15:58 Temperature 98.1 F Temperature Source Oral Pulse Rate 55 L 50 L Respiratory Rate 16 16 Blood Pressure 148/77 H 143/64 H Blood Pressure Mean 100 90 Pulse Ox 100 100 Oxygen Delivery Method Room Air Room Air MDM MDM MDM Narrative Medical decision making narrative: Differential diagnosis includes but not limited to skull fracture versus intracranial hemorrhage versus cervical spine fracture versus strain. 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 He does obtain imaging of the cervical spine and of the brain to rule out intracranial hemorrhage or skull fracture. I discussed patient with Dr. Ponce with plastic surgery who states that if the CTs look okay she prefers to take the patient to the operating room for repair. I reviewed the radiology reports of the CT of the brain and the CT of the cervical spine. There is no acute fracture, no acute intracranial hemorrhage. As he is going to the OR, I obtain basic laboratory work including CBC and BMP. I reviewed these and he has a stable hemoglobin of 11.2 with platelet count 175. Electrolyte panel is grossly unremarkable. At this point in time, I did discuss patient with plastics. He was made n.p.o. and they will take him as an add-on in about an hour and a half. I also informed her of the occipital laceration that she stated that she could repair while in the OR as well. Disposition is to the OR then discharged. Patient is in stable condition. History & Record Review Discussion w/independent historian: Patient and Family Lab Data Attestation: I reviewed the patient's lab results. Labs: Laboratory Results - last 24 hr 12/18/23 15:14 WBC 8.0 RBC 3.53 L Hgb 11.2 L Hct 35.1 L MCV 99.4 H MCH 31.7 MCHC 31.9 L RDW Std Deviation 50.5 H RDW Coeff of Michael 13.8 Plt Count 175 MPV 11.1 Immature Gran % (Auto) 0.200 Neut % (Auto) 77.8 H Lymph % (Auto) 13.8 L [place] % (Auto) 7.6 Eos % (Auto) 0.5 Baso % (Auto) 0.1 Absolute Neuts (auto) 6.2 Absolute Lymphs (auto) 1.11 Nucleated RBC % 0 Sodium 137 Potassium 4.4 Chloride 104 Carbon Dioxide 27.0 Anion Gap 6 BUN 29 H Creatinine 1.15 Estim Creat Clear Calc 68.38 Est GFR (MDRD) Af Amer 79 Est GFR (MDRD) Non-Af 65 BUN/Creatinine Ratio 25.2 H Glucose 99 Calcium 9.4 Radiography Diagnostic Testing: Clinical Impression(s) from Imaging Studies Brain CT 12/18/23 14:33 IMPRESSION: Normal unenhanced CT scan of the brain. Electronically Signed: Rishi Mandujano MD at 16:03 EDT , Cervical Spine CT 12/18/23 14:33 IMPRESSION: There is no definite acute fracture/dislocation. Degenerative changes. Electronically Signed: Rishi Mandujano MD at 16:05 EDT , Discharge Plan Dx/Rx/DC Orders Clinical Impression: Fall, Occipital scalp laceration, Complex laceration of right ear, Closed head injury Disposition Disposition: Acute Care [facility]
[2023-12-18 15:22] LABS: Absolute Lymphocyte Count 1.11 X10^3/uL (0.83-4.51); Absolute Neutrophil Count 6.2 X10^3/uL (2.0-7.7); Basophil# 0.01 X10^3/uL; Basophil% 0.1 % (0-1); Eosinophil# 0.04 X10^3/uL; Eosinophils% 0.5 % (0-5); Hematocrit 35.1 % (40-54); Hemoglobin 11.2 g/dL (13.0-16.5); Lymphocyte # 1.11 X10^3/ul (0.83-4.51); Lymphocyte % 13.8 % (19-41); Mean Corp Hgb Conc 31.9 g/dL (32-36); Mean Corpuscular Hgb 31.7 pg (27.0-32.0); Mean Corpuscular Volume 99.4 fL (80-94); Mean Platelet Vol. 11.1 fl (6.2-12.0); Monocyte# 0.61 X10^3/uL; Monocyte% 7.6 % (0-10); NRBC Flagged by Analyzer 0 % (0-5); Neutrophil # 6.23 X10^3/uL (2.7-7.7); Neutrophil % 77.8 % (47-70); Platelet Count 175 K/mm3 (150-450); RBC Distribution Width CV 13.8 % (11.6-14.6); RBC Distribution Width SD 50.5 fl (35.1-43.9); Red Blood Count 3.53 M/mm3 (4.6-6.2)
[2023-12-18 15:42] LABS: Anion Gap 6 (5-15); BUN 29 mg/dL (7-18); BUN/Creat Ratio 25.2 RATIO (10-20); Calcium,Total 9.4 mg/dL (8.5-10.1); Chloride 104 mmol/L (98-107); Creatinine, Serum 1.15 mg/dL (0.70-1.30); EST Glomerular Filtration Rate 65 mL/min (>60); Est Glom Filt Rate - Afr Amer 79 mL/min (>60); Estimated Creatinine Clearance 68.38 ml/min; Glucose 99 mg/dL (74-106); Potassium 4.4 mmol/L (3.5-5.1); Sodium Level 137 mmol/L (136-145)
--- NOTE | 2023-12-18 17:04 | NURSING ---
OR LAVERNEAZOUL COMPLEX EAR LACERATION
--- NOTE | 2023-12-18 17:07 | PCM.CONS.B ---
Consult Date of Consult: 12/18/23 Mr. Lao is a 78-year-old male who fell at his home while working outside. This happened approximately 11 AM. He sustained a laceration of his scalp and right ear. He denied loss of consciousness. Because of his use of Eliquis, he had scans performed in the ER which were unremarkable. On examination, the patient is noted to have a complex laceration of the right ear with a dressing in place that was placed by his . He has a partial degloving of the helix of the ear. He also has a simple laceration of the occiput. His lungs are clear bilaterally. He has regular cardiac rate and rhythm. His lungs are clear bilaterally. There is no evidence of peripheral edema. He is alert and oriented and answers questions appropriately. I reviewed with him and his the potential for tissue loss of the avulsed skin of the ear. In that event, we will do our best to reapproximate the tissue but there may be need for eventual reconstruction. We will notify surgery of the procedure. Reason for Consult Complex laceration right ear Assessment & Plan Assessment/Plan (1) Complex laceration of right ear: (2) Occipital scalp laceration: PLAN: Plan For surgical repair of the right ear.
--- NOTE | 2023-12-18 17:09 | ED.RN ---
REPORT CALLED TO FISH CLEANER AT [id number]. OKAY TO TAKE TO OR
--- NOTE | 2023-12-18 17:19 | NURSING ---
CALLED [facility], TALKED TO [facility]. FAXED CLINICALS
--- NOTE | 2023-12-18 17:20 | PRE.ANES_ITS ---
ASA Classification* ASA Classification ASA Classification: 2 and E Assessment & Plan Anesthesia* Anesthesia Assessment Anesthesia Assessment: Discussed sedation and/or anesthesia options, risks, benefits, and alternatives with patient/parents/legal guardian/POA. Questions invited. The patient/parents/legal guardian/POA seems to understand and agrees to proceed with anesthesia plan. Reviewed the physical assessment, medical history, allergy history and patient home medications list prior to surgery/procedure/anesthetic and documented any changes. Performed airway and anesthesia risk assessments. Anesthesia Type Anesthesia Type: MAC (GA bkup if requested by surgeon) Anesthesia Focused Assessment* Temperature: 98.2 F Pulse Rate: 47 Blood Pressure: 152/74 Respiratory Rate: 16 Pulse Ox: 98 Airway Assessment Mouth opens: >3 cm Mallampati Score: II Focused Labs Anesthesia Preop lab: CBC WBC 8.0 K/mm3 (4.4-11.0) 12/18/23 15:14 RBC 3.53 M/mm3 (4.6-6.2) L 12/18/23 15:14 Hgb 11.2 g/dL (13.0-16.5) L 12/18/23 15:14 Hct 35.1 % (40-54) L 12/18/23 15:14 Plt Count 175 K/mm3 (150-450) 12/18/23 15:14 CHEMISTRY Potassium 4.4 mmol/L (3.5-5.1) 12/18/23 15:14 Sodium 137 mmol/L (136-145) 12/18/23 15:14 BUN 29 mg/dL (7-18) H 12/18/23 15:14 Creatinine 1.15 mg/dL (0.70-1.30) 12/18/23 15:14 Glucose 99 mg/dL (74-106) 12/18/23 15:14 POC Glucose 107 mg/dL (70-110) 05/02/17 15:46 COAG Pre-Assessment Diagnosis/Proposed Procedure Planned Operative Procedure(s): Repair Right ear canal laceration Anesthesia History Anesthesia History - ribbon lapper tender: Anesthesia History - ribbon lapper tender Hx Hospitalization No 04/18/17 11:25 Any Problems With Anesthesia No 12/18/23 15:32 Cholinesterase deficiency No 04/18/17 11:25 You/Your Family Experience No 04/18/17 11:25 fever (hyperthermia) with Relationship Recent Exposure to Contagious No 05/02/17 11:13 Disease Does patient have nerve No 12/18/23 15:32 stimulator Patient instructed to have device shut off --Does patient have Pacemaker or ICD? When Was Last Pacemaker Check QUESTION #4 FULL TEXT: You/Your Family Experience fever (hyperthermia) with Anesthesia Last Oral Intake Last Oral intake: Last Oral Intake NPO since 09:30 12/18/23 15:32 Meds taken in AM with sips of water? Meds patient instructed to take am of surgery PONV PONV - ribbon lapper tender: PONV - ribbon lapper tender Female HX of Motion Sickness HX of N/V After Surgery Non-Smoker Duration of Surgery greater than 60 minutes Number of Risk Factors PONV Score Height & Weight Height & Weight: Anesthesia: Height & Weight Height 6 ft 2 in 12/18/23 15:32 Weight: 105.007 kg 12/18/23 15:32 Body Mass Index (BMI) 29.7 12/18/23 15:32 Respiratory Assessment Respiratory Assessment - ribbon lapper tender: Respiratory Tract Infection Hx - ribbon lapper tender Hx Respiratory Tract Infection Yes: 3 WEEKS AGO HAD SINUS 04/18/17 11:25 INFECTION AND WAS TREATED STOP Sleep Apnea STOP Sleep Apnea - ribbon lapper tender: STOP Sleep Apnea - ribbon lapper tender Hx Hypertension Yes 12/18/23 15:32 Hx Sleep Apnea Yes 12/18/23 15:32 CPAP Yes 12/18/23 15:32 BIPAP No 12/18/23 15:32 Do you snore loudly (louder than talking or can be heard Do you often feel tired/ fatigued/ sleepy during daytime? Has anyone observed you stop breathing during sleep? STOP Results Positive 12/18/23 15:32 QUESTION #5 FULL TEXT : Do you snore loudly (louder than talking or can be heard through closed doors)? Tobacco Use History Tobacco Use History - ribbon lapper tender: Tobacco Use History - ribbon lapper tender Tobacco Use Smoking Status Never smoker 12/18/23 13:18 Hx Tobacco Use Years Smoking Packs Smoked per Day Smoking Cessation Date was within the last 15 years Hx Smoking Cessation Date Hx Smoking Cessation Counseling Hematologic Medial History Hematologic Hx - ribbon lapper tender: Hematologic Medical Hx - digital community manager Hx of Blood Transfusion Hx of Transfusion in last 3 Months Date of Last Transfusion (if within last 3 months) Ever experience any problems with transfusion(s)? Specify any problems Hx of Preganancy in last 3 Months Nurse Filling Out Transfusion & Questions: Date: Time: Patient unable to answer at this time (ie. confused, unrespo /Reproduction History /Reproductive History - ribbon lapper tender: /Reproductive Hx- ribbon lapper tender Hx Now Gestational Age (in weeks): EDC: Hx Hx Para Hx Section SAB PFSH Medical History Kidney stone Rheumatoid arthritis Prostate cancer Atrial fibrillation Home Medications ?Medication ?Instructions ?Recorded ?Last Taken ?Type apixaban 2.5 mg tablet (Eliquis) 5 mg PO Q12H blood thinner 04/18/17 Unknown History cholecalciferol (vitamin D3) 50 2,000 unit PO DAILY supplement 04/18/17 Unknown History mcg (2,000 unit) capsule (Vitamin D3) folic acid 1 mg tablet 1 mg PO DAILY@0800 supplement 04/18/17 Unknown History hydrochlorothiazide 25 mg tablet 12.5 mg PO DAILY bp 04/18/17 Unknown History hydroxychloroquine 200 mg tablet 400 mg PO DAILY arthritis 04/18/17 Unknown History methotrexate sodium 2.5 mg tablet 25 mg PO SA arthritis 04/18/17 Unknown History metoprolol tartrate 25 mg tablet 25 mg PO BID bp 04/18/17 05/02/17 07:30 History multivitamin (Multiple Vitamins 1 ea PO DAILY supplement 04/18/17 Unknown History tablet) tamsulosin 0.4 mg capsule 0.4 mg PO QHS prostate 04/18/17 Unknown History atorvastatin 80 mg tablet 80 mg PO QHS 09/23/23 Unknown History carbidopa 25 mg-levodopa 100 mg 1 tab PO 4X/DAY 09/23/23 Unknown History tablet (Sinemet) carvedilol 3.125 mg tablet 3.125 mg PO BID 09/23/23 Unknown History dofetilide 500 mcg capsule 500 mcg PO BID 09/23/23 Unknown History lisinopril 2.5 mg tablet 2.5 mg PO DAILY 09/23/23 Unknown History omeprazole 20 mg capsule,delayed 20 mg PO BID 09/23/23 Unknown History release spironolactone 25 mg tablet 37.5 mg PO DAILY 09/23/23 Unknown History (Aldactone) bisoprolol fumarate 5 mg tablet 5 mg PO DAILY 12/18/23 12/17/23 History Allergy/AdvReac Type Severity Reaction Status Date / Time No Known Allergies Allergy Verified 12/18/23 13:19 Surgical History H/O inguinal hernia repair Social History Smoking Status: Never smoker Review of Systems (Anesthesia) ROS Narrative System reviewed and no additional complaints, except as documented.
--- NOTE | 2023-12-18 17:27 | EKG12_ITS ---
Test Reason : preop Blood Pressure : / mmHG Vent. Rate : 056 BPM Atrial Rate : 056 BPM P-R Int : 172 ms QRS Dur : 090 ms QT Int : 500 ms P-R-T Axes : 048 026 010 degrees QTc Int : 482 ms Sinus bradycardia with marked sinus arrhythmia Prolonged QT Abnormal ECG When compared with ECG of 28-JAN-2019 11:49, QT has lengthened Confirmed by XANDER TAYLOR, KAMERON ([id number]), loan expeditor LORNE GAYLE ([id number]) on 12/19/2023 2:05:58 PM Referred By: Delmis Confirmed By:KAMERON TERRELL MD
--- NOTE | 2023-12-18 17:32 | PCM.HP.BLA ---
History and Physical Date of Admission: 12/18/23 The patient is examined and there are no changes to the H&P noted in my consult note and the ER encounter note. Pt for repair ear laceration and scalp laceration. Informed consent obtained. Assessment & Plan Assessment/Plan (1) Complex laceration of right ear: (2) Occipital scalp laceration: PLAN: Plan for repair ear and scalp lacerations
[2023-12-18] MEDS: Cefazolin 2 GM in Syringe IV (18:15)
[2023-12-18] MEDS: Lidocaine 1% /Epi 1:100 (20ml) 20 ML Vial (19:24)
[2023-12-18] MEDS: BACITRACIN/POLYMYXIN B 15 GM Tube 1 APPLIC (19:37)
--- NOTE | 2023-12-18 19:42 | DCINST_ITS ---
Discharge Instructions Dressing / Incision Additional Dressing/Incision Instructions:: Keep your head elevated (recliner position) at night until seen in the office to decrease bleeding and swelling. Avoid bending and lifting for the next 3 weeks. Take the oral antibiotic (Keflex) twice a day until finished. May remove the cup dressing on the right ear tomorrow. Replace it at nighttime. Put a thin layer of antibiotic ointment (like Neosporin, bacitracin, or triple antibiotic ointment) on the exposed laceration edges on the ear and on the scalp 1 time a day. Keep the ear dry until seen in the office. Follow Up Care Please Follow Up With: Ramonita Ponce MD When: Next week Test Results: Test results from this visit will be discussed in further detail at your follow- up appointment, if applicable. Discharge Plan Admission Attending Provider: Ramonita Ponce Primary Care Provider: [facility] Instructions Print Language: Jamaican Discharge Orders/Prescriptions Prescriptions: New cephalexin 500 mg capsule 500 mg PO BID 7 Days Qty: 14 0RF No Action multivitamin [Multiple Vitamins] 1 EACH tablet 1 ea PO DAILY methotrexate sodium 2.5 MG tablet 25 mg PO SA tamsulosin 0.4 MG capsule 0.4 mg PO QHS folic acid 1 MG tablet 1 mg PO DAILY@0800 hydrochlorothiazide 25 MG tablet 12.5 mg PO DAILY hydroxychloroquine 200 MG tablet 400 mg PO DAILY metoprolol tartrate 25 MG tablet 25 mg PO BID cholecalciferol (vitamin D3) [Vitamin D3] 2,000 UNIT capsule 2,000 unit PO DAILY Eliquis 2.5 MG tablet 5 mg PO Q12H dofetilide 500 mcg capsule 500 mcg PO BID atorvastatin 80 mg tablet 80 mg PO QHS carbidopa-levodopa [Sinemet] 25-100 mg tablet 1 tab PO 4X/DAY carvedilol 3.125 mg tablet 3.125 mg PO BID Rx Instructions: must administer with a meal/food omeprazole 20 mg capsule,delayed release(DR/EC) 20 mg PO BID spironolactone [Aldactone] 25 mg tablet 37.5 mg PO DAILY lisinopril 2.5 mg tablet 2.5 mg PO DAILY bisoprolol fumarate 5 mg tablet 5 mg PO DAILY Patient Comments: LAST DOSE TAKEN AROUND 2230 ON 12/17/23 Referrals / Follow Up: [facility] [Primary Care Provider] - Disposition Disposition (needs filled in before D/C Order can be placed): Home, Self Care
--- NOTE | 2023-12-18 19:47 | PCM.OPRPT ---
Problems Associated Problem List Diagnoses (1) Complex laceration of right ear: (2) Occipital scalp laceration: Report of Operation Date of Procedure: 12/18/23 Pre-Operative Diagnosis: Complex laceration and degloving right ear Laceration scalp apex Post-Operative Diagnosis: Same Surgery/Procedure Performed:: Complex closure of right ear laceration (7 cm) Closure of scalp laceration (3 cm) Surgeon: Ramonita Ponce Type of Anesthesia: MAC Specimen's removed: None Estimated Blood Loss (mL): Minimal Description of Procedure: The patient presents to the ER today after having falling while working outside sustaining a laceration and degloving injury of the right ear as well as a scalp laceration. Plastic surgery was consulted for ear repair. On examination, the patient had a stellate and degloving injury of the right ear helical cartilage. This extended through and through to the posterior ear. There was no LOC and neurologic workup including CT scan was reportedly within normal limits. An informed consent was obtained from the patient prior to surgery. The patient is brought to the operating room and placed under MAC anesthesia in the supine position. The right ear and scalp are prepped and draped in the usual sterile fashion. 1% Xylocaine with epinephrine is used to perform a block in in the periphery of the ear. Xylocaine with epinephrine is also used to inject the scalp area. We initially began with exploring the wound to determine the depth and extent of the wound. The skin is degloved off the anterior surface of the helical cartilage. The skin appears to be viable. After thoroughly cleansing the wound, the tissue is tacked in place. This is done with chromic suture. With a satisfactory orientation of the closure, refinement of the closure is done with a running 4-0 chromic suture. In the helical area, a compression dressing is placed in order to discourage formation of a hematoma especially in light of the patient's Eliquis use. This bolster is constructed of Xeroform and tied in place with chromic in a through and through fashion of the ear. Antibiotic ointment is placed on the remainder of the incisions. A Юлия dressing is placed over the ear. On the scalp, the incision is closed with a running locked chromic suture after exploring the wound which does not extend through galea.. Antibiotic ointment is placed on the site. He tolerated the procedure well was taken to the recovery area in an awake and stable condition. Needle and sponge counts are correct. Complications None Admit VTE Documentation VTE Mechan Device Prophylaxis: SCD's
--- NOTE | 2023-12-18 19:50 | PCM.POST.ANE ---
Anesthesia: Postop Eval I Current Vital Signs Temperature: 98.5 F Pulse Rate: 63 Blood Pressure: 150/73 Respiratory Rate: 17 Pulse Ox: 100 Assessment Airway patent: Yes Spontaneous unlabored respirations: Yes nausea: No Vomiting: No Anesthesia Complication: No Fluid Hydration Crystalloid volume administer (ml): 1,000 Total IV fluid infused: 1,000 Progress Note Anesthesia document: Postop Eval 1 completed: Yes
--- NOTE | 2023-12-18 19:51 | POSTOPAN2_ITS ---
Anesthesia Postop Eval I Sum Postop Eval Completion status Anesthesia document: Postop Eval 1 completed: Yes Anesthesia Postop Eval I Summary Anesthesia Postop Eval I Summary: Anesthesia Postop Eval I: Assessment Summary Airway patent Yes 12/18/23 19:50 DIET [email or web address] Spontaneous unlabored Yes 12/18/23 19:50 DIET [email or web address].[email or web address] respirations Mental status nausea No 12/18/23 19:50 DIET ASSISTANT.JCOTE Vomiting No 12/18/23 19:50 DIET ASSISTANT.JCOTE Anesthesia Postop Eval I: Fluid Summary Crystalloid volume administer 1,000 12/18/23 19:50 DIET [email or web address].JCOTE (ml) Colloids volume administered ( ml) Blood Product volume administered (ml) Total IV fluid infused 1,000 12/18/23 19:50 DIET ASSISTANT.JCOTE Anesthesia Postop Eval I: Summary Notes Anesthesia Complication No 12/18/23 19:50 DIET ASSISTANT.JCOTE Anesthesia Complication Comment: Post-operative progress note Anesthesia: Postop Eval II Evaluation Mental status: Awake Pain Level: 0 nausea: No Vomiting: No
--- NOTE | 2023-12-18 19:51 | PCM.POSTANE2 ---
Anesthesia Postop Eval I Sum Postop Eval Completion status Anesthesia document: Postop Eval 1 completed: Yes Anesthesia Postop Eval I Summary Anesthesia Postop Eval I Summary: Anesthesia Postop Eval I: Assessment Summary Airway patent Yes 12/18/23 19:50 DRY KILN WORKER.[email or web address] Spontaneous unlabored Yes 12/18/23 19:50 DRY KILN WORKER.JCOTE respirations Mental status nausea No 12/18/23 19:50 DRY KILN WORKER.JCOTE Vomiting No 12/18/23 19:50 DRY KILN WORKER.[email or web address] Anesthesia Postop Eval I: Fluid Summary Crystalloid volume administer 1,000 12/18/23 19:50 DRY KILN WORKER.JCOTE (ml) Colloids volume administered ( ml) Blood Product volume administered (ml) Total IV fluid infused 1,000 12/18/23 19:50 DRY KILN WORKER.JCOTE Anesthesia Postop Eval I: Summary Notes Anesthesia Complication No 12/18/23 19:50 DRY KILN WORKER.JCOTE Anesthesia Complication Comment: Post-operative progress note Anesthesia: Postop Eval II Evaluation Mental status: Awake Pain Level: 0 nausea: No Vomiting: No
--- NOTE | 2023-12-18 20:17 | SUR.PHASEII ---
patient void in rr. assist x 2 and wheel chair assist on return from bathroom. patient gait unsteady. patient reports this gait is not his normal gait. will monitor for more time.
--- NOTE | 2023-12-18 20:36 | SUR.PHASEII ---
home medications taken at this time.
--- NOTE | 2023-12-18 21:14 | SUR.PHASEII ---
Patient ambulated to the bathroom, gait appears more steady. strength returning. vss. getting dressed to go home.
== END 2023-12-18 21:20 | disposition home or self-care (01) ==
LOC: ED 16:44 → SDC 17:00 → ACINP 17:01
PROVIDERS: Emergency Provider Emergency Medicine; Visit Provider Plastic Surgery
PROC: (CPT 13152; principal; 2023-12-18 17:30)
DX: S01.311A Laceration without foreign body of right ear, initial encounter (principal); G20.C Parkinsonism, unspecified; I48.91 Unspecified atrial fibrillation; S01.01XA Laceration without foreign body of scalp, initial encounter; W19.XXXA Unspecified fall, initial encounter; Z79.01 Long term (current) use of anticoagulants
CPT/HCPCS: 13152; 13121; 70450; 72125; 80048; 85025; 93005; 99284; A4216; J2405

== ENCOUNTER 2025-01-24 12:37 | Emergency (ER) | payer OTHER, SELFPAY ==
[2025-01-24 12:39] VITALS: BP 149/67; PULSE 58; RESP 18; TEMP 36.1; O2SAT 98; BMI 29.0
--- NOTE | 2025-01-24 12:53 | RAD_ITS ---
PROCEDURE: CHEST PA AND LATERAL 01/24/2025 REASON FOR EXAM: PRODUCTIVE COUGH TECHNIQUE: Procedure Code: RADCXR Modality: DX Procedure: CHEST PA AND LATERAL COMPARISON: None FINDINGS: Hardware: None Heart: The heart size is normal. Mediastinum: The mediastinal contour is unremarkable. Lungs: Hypoventilation. There is interstitial prominence. There is peribronchial thickening. No large consolidation. Bones: Degenerative changes are identified within the thoracic spine. Pleural space: No pneumothorax or pleural effusion. RAD/Chest PA and Lateral IMPRESSION: Large lung volumes with interstitial prominence which may be chronic, recommend clinical correlation with COPD. Peribronchial thickening which may represent acute or chronic bronchitis. No large consolidation. Reading Location: [facility]
--- NOTE | 2025-01-24 12:55 | EDS_ITS ---
HPI History of Present Illness Chief Complaint: Cough Narrative Narrative: Patient is a 79-year-old male presenting to the emergency department with a productive cough and sore throat since Sunday. Patient has a past medical history of pneumonia which is what him and his are concerned about. History of A-fib on Eliquis and rheumatoid arthritis on methotrexate. He was around his grandkids recently who have similar symptoms. He denies fever or chills. Denies chest pain or shortness of breath. Denies abdominal pain, nausea, vomiting, diaphoresis. Denies any lower extremity swelling worse than baseline. States he had a patella surgery when he was 18 and since then has had swelling in his legs but this is unchanged. Denies congestion or rhinorrhea. [facility] Medical History Kidney stone Rheumatoid arthritis Prostate cancer Atrial fibrillation Home Medications ?Medication ?Instructions ?Recorded ?Last Taken ?Type apixaban 2.5 mg tablet (Eliquis) 5 mg PO Q12H blood th inner 04/18/17 Unknown History cholecalciferol (vitamin D3) 50 2,000 unit PO DAILY [place] pplement 04/18/17 Unknown History mcg (2,000 unit) capsule (Vitamin D3) folic acid 1 mg tablet 1 mg PO DAILY@0800 supplemen t 04/18/17 Unknown History hydrochlorothiazide 25 mg tablet 12.5 mg PO DAILY bp 0 04/18/17 Unknown History hydroxychloroquine 200 mg tablet 400 mg PO DAILY arthr itis 04/18/17 Unknown History methotrexate sodium 2.5 mg tablet 25 mg PO SA arthriti s 04/18/17 Unknown History metoprolol tartrate 25 mg tablet 25 mg PO BID bp 04/1805/02/17 07:30 History multivitamin (Multiple Vitamins 1 ea PO DAILY suppleme nt 04/18/17 Unknown History tablet) tamsulosin 0.4 mg capsule 0.4 mg PO QHS prostate 04/18 Unknown History atorvastatin 80 mg tablet 80 mg PO QHS 09/23/23 Unknow n History carbidopa 25 mg-levodopa 100 mg 1 tab PO 4X/DAY Unknown History tablet (Sinemet) carvedilol 3.125 mg tablet 3.125 mg PO BID 09/23/23 Un known History dofetilide 500 mcg capsule 500 mcg PO BID 09/23/23 Unk nown History lisinopril 2.5 mg tablet 2.5 mg PO DAILY 09/23/23 Unk nown History omeprazole 20 mg capsule,delayed 20 mg PO BID 09/23/23 Unknown History release spironolactone 25 mg tablet 37.5 mg PO DAILY 09/23/23 Unknown History (Aldactone) bisoprolol fumarate 5 mg tablet 5 mg PO DAILY 12/18/23 12/17/23 History cephalexin 500 mg capsule 500 mg PO BID 7 days #14 cap s 12/18/23 Unknown Rx doxycycline hyclate 100 mg capsule 100 mg PO BID 5 day s #10 caps 01/24/25 Unknown Rx Allergy/AdvReac Type Severity Reaction Status Date / Time mexiletine Allergy Mild ataxia Verified 01/24/25 12:39 Family History no significant family his Surgical History H/O inguinal hernia repair Social History Smoking Status: Never smoker ROS ROS ED ROS Narrative see HPI EXAM Physical Exam Narrative Exam Narrative: Vital signs: Reviewed General: Alert and oriented x 3. No acute distress. Well-appearing, nontoxic. HEENT: Head is normocephalic and atraumatic, sinuses nontender, pupils equal round and reactive. Nares are patent. Oropharynx and throat exams normal. No posterior oropharynx swelling or exudates. There is mild erythema. Uvula is midline. No evidence of peritonsillar abscess. Tongue is midline, no elevation of the tongue. Moist mucous membranes. Neck: Supple without lymphadenopathy nontender Cardiovascular: Regular rate and rhythm, no murmurs. No rubs or gallops. Normal S1 and S2 Respiratory: Clear to auscultation bilaterally. No wheezes, rales, rhonchi Abdominal: Soft and nontender. Normal bowel sounds. No guarding or rebound. Nonsurgical abdomen Extremities: No tenderness. No bruising. Normal range of motion. Normal sensation. Skin: No rash or redness. The rest of the physical exam is unremarkable Const Vital Signs: 01/24/25 12:39 01/24/25 13:03 01/24/25 14:16 Temperature 96.9 F L 96.9 F L Temperature Source Temporal Pulse Rate 58 L 53 L Respiratory Rate 18 18 Respiratory Effort Normal Non-Labored Respiratory Depth Normal Respiratory Pattern Normal Blood Pressure 149/67 H 156/87 H Blood Pressure Mean 94 110 Pulse Ox 98 98 Oxygen Delivery Method Room Air Room Air MDM MDM MDM Narrative Medical decision making narrative: Patient is a 79-year-old male presenting to the emergency department for a productive cough and sore throat since Sunday. Patient was seen and examined. Vitals are stable. Patient resting in bed comfortably in no acute distress. Differential includes but is not limited to: Pneumonia, bronchitis URI, pharyngitis Patient has no chest pain and no shortness of breath, I do not think the patient needs any cardiac workup. Chest x-ray was obtained and reviewed by self. No acute findings noted. Radiology read with large lung volumes with interstitial prominence which may be chronic, recommend clinical correlation with COPD. Peribronchial thickening which may represent acute or chronic bronchitis. No large consolidation. Viral swab is negative. I updated the patient and at bedside on the findings. Patient had no wheezing on exam I do not see any indication for albuterol inhaler for home. I explained that antibiotics would not be indicated for only a 5 days of symptoms however with his comorbidities of age will treat with short course of antibiotics. This was discussed with patient and and they are comfortable with the plan. Patient discharged from the Emergency Department. I do not feel that the patient's evaluation reveals any acute reason for admission at this time. I instructed them to either follow-up with their primary care physician or promptly return to the Emergency Department for reevaluation should symptoms worsen or new symptoms develop. I explained what symptoms would indicate the need to return to the emergency department. Shared decision making was used. The patient voiced understanding of the treatment plan and is agreeable with it. Clinical impression URI Acute bronchitis History & Record Review Discussion w/independent historian: Patient and Family Radiography Chest X-Ray - ED: 2 View, Read by ED Physician, No Acute Disease and No Infiltrates Diagnostic Testing: Clinical Impression(s) from Imaging Studies Chest X-Ray 01/24/25 12:53 IMPRESSION: Large lung volumes with interstitial prominence which may be chronic, recommend clinical correlation with COPD. Peribronchial thickening which may represent acute or chronic bronchitis. No large consolidation. Reading Location: [facility] Discharge Plan Triage Chief Complaint: Cough ED Provider: Liliana Pardo Dx/Rx/DC Orders Clinical Impression: Acute bronchitis, URI (upper respiratory infection) Instructions: Acute Bronchitis, ED Upper Resp Infec Abx Tx Prescriptions: New doxycycline hyclate 100 mg capsule 100 mg PO BID 5 Days Qty: 10 0RF No Action multivitamin [Multiple Vitamins] 1 EACH tablet 1 ea PO DAILY methotrexate sodium 2.5 MG tablet 25 mg PO SA tamsulosin 0.4 MG capsule 0.4 mg PO QHS folic acid 1 MG tablet 1 mg PO DAILY@0800 hydrochlorothiazide 25 MG tablet 12.5 mg PO DAILY hydroxychloroquine 200 MG tablet 400 mg PO DAILY metoprolol tartrate 25 MG tablet 25 mg PO BID cholecalciferol (vitamin D3) [Vitamin D3] 2,000 UNIT capsule 2,000 unit PO DAILY Eliquis 2.5 MG tablet 5 mg PO Q12H dofetilide 500 mcg capsule 500 mcg PO BID atorvastatin 80 mg tablet 80 mg PO QHS carbidopa-levodopa [Sinemet] 25-100 mg tablet 1 tab PO 4X/DAY carvedilol 3.125 mg tablet 3.125 mg PO BID Rx Instructions: must administer with a meal/food omeprazole 20 mg capsule,delayed release(DR/EC) 20 mg PO BID spironolactone [Aldactone] 25 mg tablet 37.5 mg PO DAILY lisinopril 2.5 mg tablet 2.5 mg PO DAILY bisoprolol fumarate 5 mg tablet 5 mg PO DAILY Patient Comments: LAST DOSE TAKEN AROUND 2230 ON 12/17/23 cephalexin 500 mg capsule 500 mg PO BID 7 Days Qty: 14 0RF [facility] [place] [facility] [facility] [Primary Care Provider, None] Activity Restrictions/Additional Instructions: Take the antibiotic twice a day for 5 days. [facility]. Your evaluation in the Emergency Department did not reveal any acute reason for admission. However, I want to emphasize that you may be early in the course of a disease process or illness even if it is not present. For this reason you should follow-up within 24 hours for reevaluation with either your primary care physician or if necessary back here in the Emergency Department. Y ou should return to the Emergency Department immediately if your symptoms worsen or new symptoms develop. Print Language: [place] Island[place] Disposition Disposition: Home, Self Care Discharge Date/Time: 01/24/25 14:18
--- OUTSIDE RECORDS SUMMARY | 2025-01-24 13:03 | XMS RPT_ITS | CCD ---
Author Organization [facility] Care Team Providers Care Public Services Librarian Name Role Phone YARITZA BRYANT Attending Unavailable PHYSICIAN, NONE Primary Care Unavailable CLAUDE SERVIN Consulting Unavailable YARITZA BRYANT Admitting Unavailable YARITZA BRYANT Attending Unavailable REFERRING, PHY WO ID~[id number] Primary Care Unava ilable YARITZA BRYANT Attending Unavailable REFERRING, LESLIE WO ID~[id number] Primary Care Unava ilRadha Regan MD Primary Care Provider [phone] Radha Melendez MD Primary Care Provider Radha Melendez MD G Primary Care Provider Cyndie Prince MD Unavailable [phone] Unavailable Primary Care Provider Unavailvince e Ramonita Ponce [facility] Unavailable Ghduncan Ramonita Consulting Unavailable Ghduncan Ramonita Attending [facility] Unavailable Alka Poncea Attending Unavailable Kris Ramonita [facility]ending [facility] Unavailable Johnny Jonas Attending [facility] Referring Unavailable GhazoAlka nancea Attending [facility]available Johnny Jonas Referring Unavailable Del Benites Referring [facility] Unavailable Speedy Nuñez Attending Unavailable Mildred TAYLOR, Teresa Unavailable GUADALUPE NARANJO Referring Unavailable MELENDEZ, RADHA G Primary Care Unavailable GUADALUPE NARANJO Attending Unavailable MELENDEZ, RADHA G Primary Care Unavailable Medications Current Medications Medication Drug Class(es) Dates Sig (Normalized) Sig (Original) apixaban 5 mg oral tablet (9 sources) Factor Xa Inhibitor apixaban (EL IQUIS) 5 mg tab tab(s) Take by mouth twice daily. Active Comment on above: Take by mouth twice daily. aspirin 81 mg chewable tablet (9 sources) Platelet Aggregation Inhibitor, Nonsteroidal Anti-inflammatory Drug take 1 tablet by mouth once daily aspirin 81 mg chewable tablet Take 81 mg by mouth once daily. Active Comment on above: Take 81 mg by mouth once daily. atorvastatin 80 mg oral tablet (9 sources) HMG-CoA Reductase Inhibitor take 1 tablet by mouth once daily atorvastatin (LIPITOR) 80 mg tablet Take 80 mg by mouth once daily. Active Comment on above: Take 80 mg by mouth once daily. carbidopa 25 mg / levodopa 100 mg oral tablet (9 sources) Aromatic Amino Acid Decarboxylation Inhibitor, Aromatic Amino Acid take 1 tablet by mouth three times daily carbidopa-levodopa (SINEMET 25-100) 25-100 mg per tablet Take 1 tablet by mouth three times daily. Active Comment on above: Take 1 tablet by bebo th three times daily. carvedilol (7 sources) alpha-Adrenergic Art, beta-Adrenergic Art CARVEDILOL ORAL Take by mouth. Active CARVEDILOL ORAL Take by mouth. 0 Active Comment on above: Take by mouth. cetirizine hydrochloride 10 mg oral tablet (9 sources) Histamine-1 Receptor Antagonist Start: 018 take 1 tablet by mouth once daily cetirizine (ZYRTEC) 10 mg tablet Indications: Acute non-recurrent pansinusitis Take 1 tablet by mouth once daily. 30 tablet 03/08/2017 Active Comment on above: Take 1 tablet by bebo th once daily. cholecalciferol 0.05 mg oral tablet (9 sources) Vitamin D take 1 tablet by mouth once daily cholecalciferol (VITAMIN D3) 2,000 unit tablet Take 2,000 Units by mouth once daily. Active Comment on above: Take 2,000 Units by mouth once daily. dofetilide 0.5 mg oral capsule (7 sources) Antiarrhythmic take 1 capsule by mouth twice daily dofetilide (TIKOSYN) 500 mcg capsule Take 500 mcg by mouth twice daily. Active Comment on above: Take 500 mcg by mout h twice daily. doxycycline hyclate 100 mg oral capsule (2 sources) Tetracycline-class Drug Start: 025 End: 025 take 1 capsule by mouth twice daily doxycycline hyclate (VIBRAMYCIN) 100 mg capsule Indications: Opacity of lung on imaging study Take 1 capsule by mouth two times a day for 7 days. 14 capsule 09/09/2024 09/16/2024 Active Start: 04-25-2023 End: 05-02-2023 take 1 tablet by mouth twice daily doxycycline monohydrate 100 mg tablet Take 1 tablet by mouth two times a day for 7 days. 14 tablet 0 04/25/2023 05/02/2023 Active Comment on above: Take 1 tablet by bebo th two times a day for 7 days. ferrous sulfate 325 mg oral tablet (9 sources) take 1 tablet by mouth once daily at breakfast ferrous sulfate 325 mg (65 mg iron) tablet Take 325 mg by mouth daily with breakfast. Active Comment on above: Take 325 mg by mouth daily with breakfast. Flecainide (9 sources) Antiarrhythmic FLECAINIDE ACETA TE (FLECAINIDE ORAL) Take by mouth. Active FLECAINIDE ACETA TE (FLECAINIDE ORAL) Take by mouth. 0 Active Comment on above: Take by mouth. fluticasone propionate 0.05 mg/actuat metered dose nasal spray (9 sources) Corticosteroid Start: 8 take 2 spray(s) by mouth once daily fluticasone (FLONASE) 50 mcg/actuation nasal spray Indications: Acute non-recurrent pansinusitis Use 2 Sprays in each nostril once daily. Rinse mouth after use. 1 Bottle 11 03/08/2017 Active Comment on above: Use 2 Sprays in each nostril once daily. Rinse mouth after use. Folic Acid (9 sources) FOLIC ACID ORAL Take by mouth. Active FOLIC ACID ORAL Take by mouth. 0 Active Comment on above: Take by mouth. hydroCHLOROthiazide 25 mg oral tablet (9 sources) Thiazide Diuretic take 1 tablet by mouth once daily hydroCHLOROthiazide (HYDRODIURIL, ESIDRIX) 25 mg tablet Take 25 mg by mouth once daily. Active Comment on above: Take 25 mg by mouth once daily. Hydroxychloroquine (9 sources) Antimalarial, Antirheumatic Agent HYDROXYCHLOROQUINE SULFATE (HYDROXYCHLOROQUINE ORAL) Take by mouth. Active HYDROXYCHLOROQUI NE SULFATE (HYDROXYCHLOROQUINE ORAL) Take by mouth. 0 Active Comment on above: Take by mouth. lisinopril 2.5 mg oral tablet (9 sources) Angiotensin Converting Enzyme Inhibitor take 1 tablet by mouth once daily lisinopril 2.5 mg tablet Take 2.5 mg by mouth once daily. Active Comment on above: Take 2.5 mg by mouth once daily. Lovastatin (9 sources) HMG-CoA Reductase Inhibitor LOVASTATIN ORAL Take by mouth. Active LOVASTATIN ORAL Take by mouth. 0 Active Comment on above: Take by mouth. methotrexate 2.5 mg oral tablet (9 sources) Folate Analog Metabolic Inhibitor Start: 8 methotrexate 2.5 mg tablet SA 04/18/2017 Active Comment on above: SA Metoprolol (9 sources) beta-Adrenergic Art take 0.5 tablet by mouth twice daily METOPROLOL TARTRATE ORAL Take 50 mg by mouth. Patient taking 1/2 tablet twice daily Active take 0.5 tablet by mouth twice d aily METOPROLOL TARTRATE ORAL Take 50 mg by mouth. Patient taking 1/2 tablet twice daily 0 Active Comment on above: Take 50 mg by mouth. Patient taking 1/2 tablet twice daily multivitamin with minerals (VISION/OPTIGEN) tablet (9 sources) take 1 tablet by mouth once daily multivitamin with minerals (VISION/OPTIGEN) tablet Take 1 tablet by mouth once daily. Active take 1 tablet by mouth once antoinette y multivitamin with minerals (VISION/OPTIGEN) tablet Take 1 tablet by mouth once daily. 0 Active Comment on above: Take 1 tablet by bebo once daily. mupirocin 0.02 mg/mg topical ointment (9 sources) RNA Synthetase Inhibitor Antibacterial Start: 8 mupirocin (BACTROBAN) 2 % ointment Apply 1 application to affected area three times daily. Location: wrist 30 g 09/21/2017 Active Comment on above: Apply 1 application to affected area three times daily. Location: wrist omeprazole 20 mg delayed release oral capsule (9 sources) Proton Pump Inhibitor take 1 capsule by mouth once daily omeprazole (PRILOSEC) 20 mg capsule Take 20 mg by mouth once daily. Active Comment on above: Take 20 mg by mouth once daily. raNITIdine (9 sources) Histamine-2 Receptor Antagonist RANITIDINE HCL ORAL Take by mouth. Active RANITIDINE HCL O RAL Take by mouth. 0 Active Comment on above: Take by mouth. spironolactone 25 mg oral tablet (3 sources) Aldosterone Antagonist Start: 01-24-2023 spironolactone (ALDACTONE) 25 mg tablet 37.5 mg. 01/24/2023 Active sulfaSALAzine (9 sources) Aminosalicylate SULFASALAZINE OR AL Take by mouth. Active SULFASALAZINE OR AL Take by mouth. 0 Active Comment on above: Take by mouth. tamsulosin (9 sources) alpha-Adrenergic Art TAMSULO SIN HCL (TAMSULOSIN ORAL) Take by mouth. Active TAMSULOSIN HCL ( TAMSULOSIN ORAL) Take by mouth. 0 Active Comment on above: Take by mouth. Problems Active Problems Problem Classification Problem Date Documented Date Episodic/Chronic Cancer of prostate (4 sources) Malignant tumor of prostate; Translations: [Malignant neoplasm of prostate] Onset: 06-20-2023 06-20-2023 Chronic Cardiac dysrhythmias (9 sources) Chronic atrial fibrillation; Translations: [Chronic atrial fibrillation, unspecified] Onset: 03-25-2017 03-25-2017 Chronic E Codes: Fall (2 sources) Fall; Translations: [Unspecified fall, initial encounter] Onset: 09-09-2024 09-09-2024 Episodic Esophageal disorders (9 sources) Gastroesophageal reflux disease without esophagitis; Translations: [Gastro-esophageal reflux disease without esophagitis] Onset: 03-25-2017 03-25-2017 Chronic Essential hypertension (9 sources) Essential hypertension; Translations: [Essential (primary) hypertension] Onset: 03-25-2017 03-25-2017 Chronic Fracture of upper limb (3 sources) Closed fracture of acromial end of clavicle; Translations: [Displaced fracture of lateral end of left clavicle, initial encounter for closed fracture] Onset: 09-09-2024 09-09-2024 Episodic Open wounds of extremities (1 source) Laceration of left thumb; Translations: [Laceration without foreign body of left thumb without damage to nail, initial encounter] 04-25-2023 Episodic Open wounds of head; neck; and trunk (3 sources) Laceration without foreign body of right ear, initial encounter; Translations: [Laceration without foreign body of scalp, initial encounter] Onset: 03-03-2024 Episodic Other injuries and conditions due to external causes (4 sources) Injury of ribs; Translations: [Unspecified injury of thorax, initial encounter] 09-09-2024 Episodic Other injuries and conditions due to external causes (2 sources) Injury of left shoulder; Translations: [Unspecified injury of left shoulder and upper arm, initial encounter] 09-09-2024 Episodic Other injuries and conditions due to external causes (1 source) Unspecified injury of thorax, initial encounter; Translations: [Rib injury] Onset: 09-09-2024 Episodic Other injuries and conditions due to external causes (1 source) Unspecified injury of left shoulder and upper arm, initial encounter; Translations: [Injury of left shoulder, initial encounter] Onset: 09-09-2024 Episodic Other lower respiratory disease (1 source) Cough; Translations: [Cough] 11-19-2020 Episodic Other lower respiratory disease (1 source) Abnormal findings on diagnostic imaging of lung; Translations: [Other nonspecific abnormal finding of lung field] 09-09-2024 Episodic Other lower respiratory disease (1 source) Other nonspecific abnormal finding of lung field; Translations: [Opacity of lung on imaging study] Onset: 09-09-2024 Episodic Other non-traumatic joint disorders (2 sources) Swelling of upper limb; Translations: [Effusion, right elbow] Episodic Residual codes; unclassified (9 sources) Obstructive sleep apnea syndrome; Translations: [Obstructive sleep apnea (adult) (pediatric)] Onset: 03-25-2017 03-25-2017 Chronic Rheumatoid arthritis and related disease (9 sources) Rheumatoid arthritis of multiple joints; Translations: [Rheumatoid arthritis with rheumatoid factor of multiple sites without organ or systems involvement] Onset: 03-25-2017 03-25-2017 Chronic Skin and subcutaneous tissue infections (1 source) Infection of foot; Translations: [Local infection of the skin and subcutaneous tissue, unspecified] 03-22-2020 Episodic Superficial injury; contusion (2 sources) Contusion of left shoulder; Translations: [Contusion of left shoulder, initial encounter] Onset: 09-09-2024 09-09-2024 Episodic Past or Other Problems Problem Classification Problem Date Documented Da te Episodic/Chronic Abdominal pain (1 source) Unspecified abdominal pain; Translations: [Unspecified abdominal pain] Onset: 10-12-2023 Episodic Deficiency and other anemia (9 sources) Anemia; Translations: [Anemia, unspecified] Onset: 03-25-2017 03-25-2017 Episodic Unclassified (2 sources) Injury of left shoulder 09-09-2024 Results Test Name Value Interpretation Reference Range Facility [facility] 09-09-2024 CNOV Office Visit ([facility]) ALMA BARROW ([id number]) 1945 M Date Time Provider Department 09/09/24 5:30 PM GUADALUPE NARANJO During your visit today, we recorded the following information about you: Temperature Pulse Respiration Blood pressure 97.6 degrees 70/minute 18/minute 161/82 Weight 105 kg Guadalupe Naranjo APRN.[facility] 09/09/2024 7:47 PM Signed [facility] Subjective Alma Barrow is a 79 year old male. Patient presents with: Fall: X 1 wk ago, fell on left side and no has pain in Left shoulder area radiating into shoulder blade Pt is on blood thinners, has bruising, laceration on L elbow Fall Left Shoulder Pain: - Fell one week ago, landing on left shoulder and elbow; no head trauma. - Fall attributed to loss of balance, possibly exacerbated by recent medication change to mexiletine. - Reports pain in the scapular and posterior rib cage area. - No anterior chest impact during the fall. - Denies dyspnea, cough, or fever. - Last tetanus vaccination was on 03/22/2020. Atrial Fibrillation: - History of atrial fibrillation with recent episodes of tachycardia up to 200 bpm. - Underwent Zio patch monitoring. - Recently started on mexiletine, which may have contributed to lack of coordination leading to the fall. - Discontinued mexiletine last Sunday. Parkinson's Disease: - History of Parkinson's disease. - Maintains good upper extremity strength. - Remains active as a fox. - Reports feeling a little bit more depressed over the past week, possibly due to pain and inability to perform usual activities. Review of Systems Constitutional: (-) fever Respiratory: (-) shortness of breath, (-) cough Musculoskeletal: (+) left posterior shoulder pain Skin: (+) bruising Psychiatric: (+) depressed mood Objective BP 161/82 Pulse 70 Temp 36.4 ?C (97.6 ?F) Resp 18 Wt 105 kg (231 lb 7.7 oz) SpO2 99% PAST MEDICAL HISTORY Diagnosis Date A-fib (HCC) Abdominal aortic aneurysm (AAA) and chest Atrial fibrillation (HCC) Larsen esophagus CAD (coronary artery disease) Essential hypertension GERD (gastroesophageal reflux disease) Mixed hyperlipidemia STACIE (obstructive sleep apnea) Parkinson's disease (HCC) Prostate cancer (HCC) Rheumatoid arthritis (HCC) PAST SURGICAL HISTORY Procedure Laterality Date COLONOSCOPY SCREENING 2018 IR RT HEART CATH KNEE SURGERY HX Bilateral LAMINECTOMY,LUMBAR REMV CATARACT EXTRACAP,INSERT LENS Bilateral 2022 REPAIR EPIGASTRIC HERNIA,REDUC SHOULDER SURGERY HX Right 2010 ALLERGIES Patient has no known allergies. MEDICATIONS spironolactone (ALDACTONE) 25 mg tablet 37.5 mg. dofetilide (TIKOSYN) 500 mcg capsule Take 500 mcg by mouth twice daily. lisinopril 2.5 mg tablet Take 2.5 mg by mouth once daily. atorvastatin (LIPITOR) 80 mg tablet Take 80 mg by mouth once daily. carbidopa-levodopa (SINEMET 25-100) 25-100 mg per tablet Take 1 tablet by mouth three times daily. omeprazole (PRILOSEC) 20 mg capsule Take 20 mg by mouth once daily. SULFASALAZINE ORAL Take by mouth. FOLIC ACID ORAL Take by mouth. HYDROXYCHLOROQUINE SULFATE (HYDROXYCHLOROQUINE ORAL) Take by mouth. TAMSULOSIN HCL (TAMSULOSIN ORAL) Take by mouth. apixaban (ELIQUIS) 5 mg tab tab(s) Take by mouth twice daily. multivitamin with minerals (VISION/OPTIGEN) tablet Take 1 tablet by mouth once daily. cholecalciferol (VITAMIN D3) 2,000 unit tablet Take 2,000 Units by mouth once daily. doxycycline hyclate (VIBRAMYCIN) 100 mg capsule Take 1 capsule by mouth two times a day for 7 days. CARVEDILOL ORAL Take by mouth. (Patient not taking: Reported on 09/09/2024) methotrexate 2.5 mg tablet SA (Patient not taking: Reported on 09/09/2024) mupirocin (BACTROBAN) 2 % ointment Apply 1 application to affected area three times daily. Location: wrist (Patient not taking: Reported on 03/22/2020) FLECAINIDE ACETATE (FLECAINIDE ORAL) Take by mouth. (Patient not taking: Reported on 11/16/2020) LOVASTATIN ORAL Take by mouth. (Patient not taking: Reported on 11/16/2020) METOPROLOL TARTRATE ORAL Take 50 mg by mouth. Patient taking 1/2 tablet twice daily (Patient not taking: Reported on 09/12/2021) hydroCHLOROthiazide (HYDRODIURIL, ESIDRIX) 25 mg tablet Take 25 mg by mouth once daily. (Patient not taking: Reported on 11/16/2020) RANITIDINE HCL ORAL Take by mouth. (Patient not taking: Reported on 11/16/2020) aspirin 81 mg chewable tablet Take 81 mg by mouth once daily. (Patient not taking: Reported on 09/12/2021) ferrous sulfate 325 mg (65 mg iron) tablet Take 325 mg by mouth daily with breakfast. (Patient not taking: Reported on 06/20/2023) fluticasone (FLONASE) 50 mcg/actuation nasal spray Use 2 Sprays in each nostril once daily. Rinse mouth after use. (Patient not taking: Reported on 03/22/2020) cetirizine (ZYRTEC) 10 mg tablet Take 1 tablet by mouth once (more content not included)... Normal [facility] No Panel Informationon 09-09 IMPRESSION: Multiple left rib deformities, however at least some of these were present in 2020. Cannot exclude new fractures left ribs. No pneumothorax is seen. Some new opacity left base of uncertain relation to the current acute trauma and cannot exclude a pulmonary contusion in appropriate clinical context, versus infection or other pathology. Fracture left distal clavicle, possibly acute and with some comminution, noting that there is thought to be a relatively small fragment adjacent to the acromioclavicular joint. Scapula, humerus no fractures seen. Replenishment Merchandising Associate: PSCB Transcribe Date/Time: Sep 09 2024 7:04P Dictated by : KARLEY VILLARREAL MD This examination was interpreted and the report reviewed and electronically signed by: KARLEY VILLARREAL MD on Sep 09 2024 7:13PM [facility] DIVISION OF RADIOLOGY Radiology Study observation (narrative) [facility] No Panel InformationOrdered By: [facility] Provider on 09-09-2024 [facility] XR RIB/CHST 3V AP RIB/OBL/CH [facility] [place] 09-09-2024 XR RIB/CHST 3V AP RIB/OBL/CHST L * * *Final Report* * * DATE OF EXAM: Sep 09 2024 6:17PM WOX [id number] - XR RIB/CHST 3V AP RIB/OBL/CHST L / PROCEDURE REASON: Rib injury * * * * Physician Interpretation * * * * EXAMINATION: XR RIB/CHST 3V AP RIB/OBL/CHST L, XR SHLDR >/=3V AP/ADITYA AP/OTHR LT CLINICAL HISTORY: Trauma Technique: XR RIB/CHST 3V AP RIB/OBL/CHST L, XR SHLDR >/=3V AP/ADITYA AP/OTHR LT -- LEFT with 4 (accession [id number]), 3 (accession [id number]) views on 6 (accession [id number]), 3 (accession [id number]) images Comparison: Limited comparison to chest x-ray 11/19/2020, RESULT: Chest x-ray-no evidence of pneumothorax. Some patchy opacity at the left lung base. Deformities of multiple left posterior ribs are seen however are not definitively changed from study of 11/19/2020, particularly left fourth fifth and sixth posterior ribs. A left posterior seventh rib deformity is not seen with certainty on previous. An anterior left seventh lower rib deformity is not definitively present on previous and may be acute. Left distal clavicle, there is fracture with the possibility of some comminuted fragments adjacent to the distal clavicle. Shoulder does not appear dislocated. Included humerus no fractures seen. IMPRESSION: Multiple left rib deformities, however at least some of these were present in 2020. Cannot exclude new fractures left ribs. No pneumothorax is seen. Some new opacity left base of uncertain relation to the current acute trauma and cannot exclude a pulmonary contusion in appropriate clinical context, versus infection or other pathology. Fracture left distal clavicle, possibly acute and with some comminution, noting that there is thought to be a relatively small fragment adjacent to the acromioclavicular joint. Scapula, humerus no fractures seen. Replenishment Merchandising Associate: CHADD Transcribe Date/Time: Sep 09 2024 7:04P Dictated by : KARLEY VILLARREAL MD This examination was interpreted and the report reviewed and electronically signed by: KARLEY VILLARREAL MD on Sep 09 2024 7:13PM EST [id number] [facility] XR Ribs - left Views and Marva st PAon 09-09-2024 * * *Final Report* * * DATE OF EXAM: Sep 09 2024 6:17PM WOX [id number] - XR RIB/CHST 3V AP RIB/OBL/CHST L / PROCEDURE REASON: Rib injury * * * * Physician Interpretation * * * * EXAMINATION: XR RIB/CHST 3V AP RIB/OBL/CHST L, XR SHLDR >/=3V AP/ADITYA AP/OTHR LT CLINICAL HISTORY: Trauma Technique: XR RIB/CHST 3V AP RIB/OBL/CHST L, XR SHLDR >/=3V AP/ADITYA AP/OTHR LT -- LEFT with 4 (accession [id number]), 3 (accession [id number]) views on 6 (accession [id number]), 3 (accession [id number]) images Comparison: Limited comparison to chest x-ray 11/19/2020, RESULT: Chest x-ray-no evidence of pneumothorax. Some patchy opacity at the left lung base. Deformities of multiple left posterior ribs are seen however are not definitively changed from study of 11/19/2020, particularly left fourth fifth and sixth posterior ribs. A left posterior seventh rib deformity is not seen with certainty on previous. An anterior left seventh lower rib deformity is not definitively present on previous and may be acute. Left distal clavicle, there is fracture with the possibility of some comminuted fragments adjacent to the distal clavicle. Shoulder does not appear dislocated. Included humerus no fractures seen. DIVISION OF RADIOLOGY Provider, [facility] - 09/09/2024 * * *Final Report* * * DATE OF EXAM: Sep 09 2024 6:17PM WOX 5243 - XR RIB/CHST 3V AP RIB/OBL/CHST L / PROCEDURE REASON: Rib injury * * * * Physician Interpretation * * * * EXAMINATION: XR RIB/CHST 3V AP RIB/OBL/CHST L, XR SHLDR >/=3V AP/ADITYA AP/OTHR LT CLINICAL HISTORY: Trauma Technique: XR RIB/CHST 3V AP RIB/OBL/CHST L, XR SHLDR >/=3V AP/ADITYA AP/OTHR LT -- LEFT with 4 (accession [id number]), 3 (accession [id number]) views on 6 (accession [id number]), 3 (accession [id number]) images Comparison: Limited comparison to chest x-ray 11/19/2020, RESULT: Chest x-ray-no evidence of pneumothorax. Some patchy opacity at the left lung base. Deformities of multiple left posterior ribs are seen however are not definitively changed from study of 11/19/2020, particularly left fourth fifth and sixth posterior ribs. A left posterior seventh rib deformity is not seen with certainty on previous. An anterior left seventh lower rib deformity is not definitively present on previous and may be acute. Left distal clavicle, there is fracture with the possibility of some comminuted fragments adjacent to the distal clavicle. Shoulder does not appear dislocated. Included humerus no fractures seen. IMPRESSION IMPRESSION: Multiple left rib deformities, however at least some of these were present in 2020. Cannot exclude new fractures left ribs. No pneumothorax is seen. Some new opacity left base of uncertain relation to the current acute trauma and cannot exclude a pulmonary contusion in appropriate clinical context, versus infection or other pathology. Fracture left distal clavicle, possibly acute and with some comminution, noting that there is thought to be a relatively small fragment adjacent to the acromioclavicular joint. Scapula, humerus no fractures seen. Replenishment Merchandising Associate: PSCB Transcribe Date/Time: Sep 09 2024 7:04P Dictated by : KARLEY VILLARREAL MD This examination was interpreted and the report reviewed and electronically signed by: KARLEY VILLARREAL MD on Sep 09 2024 7:13PM [facility] XR SHLDR >/=3V AP/ADITYA AP/OTH R LTon 09-09-2024 XR SHLDR >/=3V AP/ADITYA AP/OTHR LT * * *Final Report* * * DATE OF EXAM: Sep 09 2024 6:17PM WOX [id number] - XR SHLDR >/=3V AP/ADITYA AP/OTHR LT / PROCEDURE REASON: Injury of left shoulder, initial encounter * * * * Physician Interpretation * * * * EXAMINATION: XR RIB/CHST 3V AP RIB/OBL/CHST L, XR SHLDR >/=3V AP/ADITYA AP/OTHR LT CLINICAL HISTORY: Trauma Technique: XR RIB/CHST 3V AP RIB/OBL/CHST L, XR SHLDR >/=3V AP/ADITYA AP/OTHR LT -- LEFT with 4 (accession [id number]), 3 (accession [id number]) views on 6 (accession [id number]), 3 (accession [id number]) images Comparison: Limited comparison to chest x-ray 11/19/2020, RESULT: Chest x-ray-no evidence of pneumothorax. Some patchy opacity at the left lung base. Deformities of multiple left posterior ribs are seen however are not definitively changed from study of 11/19/2020, particularly left fourth fifth and sixth posterior ribs. A left posterior seventh rib deformity is not seen with certainty on previous. An anterior left seventh lower rib deformity is not definitively present on previous and may be acute. Left distal clavicle, there is fracture with the possibility of some comminuted fragments adjacent to the distal clavicle. Shoulder does not appear dislocated. Included humerus no fractures seen. IMPRESSION: Multiple left rib deformities, however at least some of these were present in 2020. Cannot exclude new fractures left ribs. No pneumothorax is seen. Some new opacity left base of uncertain relation to the current acute trauma and cannot exclude a pulmonary contusion in appropriate clinical context, versus infection or other pathology. Fracture left distal clavicle, possibly acute and with some comminution, noting that there is thought to be a relatively small fragment adjacent to the acromioclavicular joint. Scapula, humerus no fractures seen. Replenishment Merchandising Associate: PSC[employer] Transcribe Date/Time: Sep 09 2024 7:04P Dictated by : KARLEY VILLARREAL MD This examination was interpreted and the report reviewed and electronically signed by: KARLEY VILLARREAL MD on Sep 09 2024 7:13PM EST [id number] Normal [facility] XR Shoulder - left 3 Viewson 09-09-2024 * * *Final Report* * * DATE OF EXAM: Sep 09 2024 6:17PM WOX 5252 - XR SHLDR >/=3V AP/ADITYA AP/OTHR LT / PROCEDURE REASON: Injury of left shoulder, initial encounter * * * * Physician Interpretation * * * * EXAMINATION: XR RIB/CHST 3V AP RIB/OBL/CHST L, XR SHLDR >/=3V AP/ADITYA AP/OTHR LT CLINICAL HISTORY: Trauma Technique: XR RIB/CHST 3V AP RIB/OBL/CHST L, XR SHLDR >/=3V AP/ADITYA AP/OTHR LT -- LEFT with 4 (accession [id number]), 3 (accession [id number]) views on 6 (accession [id number]), 3 (accession [id number]) images Comparison: Limited comparison to chest x-ray 11/19/2020, RESULT: Chest x-ray-no evidence of pneumothorax. Some patchy opacity at the left lung base. Deformities of multiple left posterior ribs are seen however are not definitively changed from study of 11/19/2020, particularly left fourth fifth and sixth posterior ribs. A left posterior seventh rib deformity is not seen with certainty on previous. An anterior left seventh lower rib deformity is not definitively present on previous and may be acute. Left distal clavicle, there is fracture with the possibility of some comminuted fragments adjacent to the distal clavicle. Shoulder does not appear dislocated. Included humerus no fractures seen. DIVISION OF RADIOLOGY Provider, [facility] - 09/09/2024 * * *Final Report* * * DATE OF EXAM: Sep 09 2024 6:17PM WOX 5252 - XR SHLDR >/=3V AP/ADITYA AP/OTHR LT / PROCEDURE REASON: Injury of left shoulder, initial encounter * * * * Physician Interpretation * * * * EXAMINATION: XR RIB/CHST 3V AP RIB/OBL/CHST L, XR SHLDR >/=3V AP/ADITYA AP/OTHR LT CLINICAL HISTORY: Trauma Technique: XR RIB/CHST 3V AP RIB/OBL/CHST L, XR SHLDR >/=3V AP/ADITYA AP/OTHR LT -- LEFT with 4 (accession [id number]), 3 (accession [id number]) views on 6 (accession [id number]), 3 (accession [id number]) images Comparison: Limited comparison to chest x-ray 11/19/2020, RESULT: Chest x-ray-no evidence of pneumothorax. Some patchy opacity at the left lung base. Deformities of multiple left posterior ribs are seen however are not definitively changed from study of 11/19/2020, particularly left fourth fifth and sixth posterior ribs. A left posterior seventh rib deformity is not seen with certainty on previous. An anterior left seventh lower rib deformity is not definitively present on previous and may be acute. Left distal clavicle, there is fracture with the possibility of some comminuted fragments adjacent to the distal clavicle. Shoulder does not appear dislocated. Included humerus no fractures seen. IMPRESSION IMPRESSION: Multiple left rib deformities, however at least some of these were present in 2020. Cannot exclude new fractures left ribs. No pneumothorax is seen. Some new opacity left base of uncertain relation to the current acute trauma and cannot exclude a pulmonary contusion in appropriate clinical context, versus infection or other pathology. Fracture left distal clavicle, possibly acute and with some comminution, noting that there is thought to be a relatively small fragment adjacent to the acromioclavicular joint. Scapula, humerus no fractures seen. Replenishment Merchandising Associate: CHADD Transcribe Date/Time: Sep 09 2024 7:04P Dictated by : KARLEY VILLARREAL MD This examination was interpreted and the report reviewed and electronically signed by: KARLEY VILLARREAL MD on Sep 09 2024 7:13PM [facility] Plastic Surgery Visit Report on 01-01-2024 Plastic Surgery Visit Report [facility] Plastic Reconstructive Surgery [address], [address] [place], [place] [address] OFFICE VISIT Date of Service: 01/01/24 MR#: [id number] Acct: [id number] Name: ALMA BARROW Rep #: [id number] : 1945 Provider: Dr. Ramonita nance MD Age/Sex: 78/M Location: [facility] Status: Signed Intake Vital Signs 12/25/23 11:04 01/01/24 08:59 Height 6 ft 2 in 6 ft 2 in BP 132/72 H 146/77 H Blood Pressure Location Lt brachial Lt brachial Position Sitting Sitting Respiration 16 16 Pulse 54 L 48 L Temp 97.6 F L 97.3 F L Temp Source Oral Oral Pulse Oximetry (%) 97 90 Oxygen Delivery Method room air room air Intake Visit Reasons: 1 W FU Chief Complaint: post op Accompanied by: Is patient in pain?: No Allergies No Known Allergies Allergy (Verified 12/25/23 11:05) Medications ???Medication ???Instructions ???Recorded ???Confirmed ???Type apixaban 2.5 mg tablet (Eliquis) 5 mg PO Q12H blood thinner 04/18/17 01/01/24 History cholecalciferol (vitamin D3) 50 2,000 unit PO DAILY supplement 04/18/17 01/01/24 History mcg (2,000 unit) capsule (Vitamin D3) folic acid 1 mg tablet 1 mg PO DAILY@0800 supplement 04/18/17 01/01/24 History hydrochlorothiazide 25 mg tablet 12.5 mg PO DAILY bp 04/18/17 01/01/24 History hydroxychloroquine 200 mg tablet 400 mg PO DAILY arthritis 04/18/17 01/01/24 History methotrexate sodium 2.5 mg tablet 25 mg PO SA arthritis 04/18/17 01/01/24 History metoprolol tartrate 25 mg tablet 25 mg PO BID bp 04/18/17 01/01/24 History multivitamin (Multiple Vitamins 1 ea PO DAILY supplement 04/18/17 01/01/24 History tablet) tamsulosin 0.4 mg capsule 0.4 mg PO QHS prostate 04/18/17 01/01/24 History atorvastatin 80 mg tablet 80 mg PO QHS 09/23/23 01/01/24 History carbidopa 25 mg-levodopa 100 mg 1 tab PO 4X/DAY 09/23/23 01/01/24 History tablet (Sinemet) carvedilol 3.125 mg tablet 3.125 mg PO BID 09/23/23 01/01/24 History dofetilide 500 mcg capsule 500 mcg PO BID 09/23/23 01/01/24 History lisinopril 2.5 mg tablet 2.5 mg PO DAILY 09/23/23 01/01/24 History omeprazole 20 mg capsule,delayed 20 mg PO BID 09/23/23 01/01/24 History release spironolactone 25 mg tablet 37.5 mg PO DAILY 09/23/23 01/01/24 History (Aldactone) bisoprolol fumarate 5 mg tablet 5 mg PO DAILY 12/18/23 01/01/24 History cephalexin 500 mg capsule 500 mg PO BID 7 days #14 caps 12/18/23 01/01/24 Rx Have you fallen in the past year?: Yes Nurse's Note: pt here with post op ear laceration, no issues , question on restrictions Subjective Details: Alma comes in for recheck of the right ear reconstruction. He denies any problems. The bolster dressing remains in place. Objective Details: There is no evidence of infection. The bolster was removed. There is still some residual swelling. The site is debrided of suture material. I have asked them to discontinue applying antibiotic ointment. They can periodically apply Aquaphor. I suggested sleeping upright for the next week and to keep the Thurston cup in place at night only for the next 1 to 2 weeks. He can get this wet in the shower but not scrub. Coding Level of Care Code Global Post Op Diagnoses Complex laceration of right ear S01.311A [facility] Medical History Kidney stone Rheumatoid arthritis Prostate cancer Atrial fibrillation Surgical History H/O inguinal hernia repair Social History Smoking Status: Never smoker Assessment and Plan (No Qualifiers) Assessment and Plan (1) Complex laceration of right ear: Status: Acute Plan Details Additional Comments: I will see him back as needed. 01/01/24 1528 Date Ramonita Ponce MD Cosigner Signature: Date (if applicable) CC: Normal [facility] Plastic Surgery Visit Report on 12-25-2023 Plastic Surgery Visit Report [facility] Plastic Reconstructive Surgery [address], [address] [place] [address] OFFICE VISIT Date of Service: 12/25/23 MR#: [id number] Acct: [id number] Name: ALMA BARROW Rep #: [id number] : 1945 Provider: Dr. Ramonita nance MD Age/Sex: 78/M Location: [facility] Status: Signed Intake Vital Signs 12/18/23 15:32 12/25/23 11:04 Height 6 ft 2 in 6 ft 2 in BP 132/72 H Blood Pressure Location Lt brachial Position Sitting Respiration 16 Pulse 54 L Temp 97.6 F L Temp Source Oral Pulse Oximetry (%) 97 Oxygen Delivery Method room air Intake Visit Reasons: 1 W FU POST OP Chief Complaint: post op Accompanied by: Is patient in pain?: No Allergies No Known Allergies Allergy (Verified 12/25/23 11:05) Medications ???Medication ???Instructions ???Recorded ???Confirmed ???Type apixaban 2.5 mg tablet (Eliquis) 5 mg PO Q12H blood thinner 04/18/17 12/25/23 History cholecalciferol (vitamin D3) 50 2,000 unit PO DAILY supplement 04/18/17 12/25/23 History mcg (2,000 unit) capsule (Vitamin D3) folic acid 1 mg tablet 1 mg PO DAILY@0800 supplement 04/18/17 12/25/23 History hydrochlorothiazide 25 mg tablet 12.5 mg PO DAILY bp 04/18/17 12/25/23 History hydroxychloroquine 200 mg tablet 400 mg PO DAILY arthritis 04/18/17 12/25/23 History methotrexate sodium 2.5 mg tablet 25 mg PO SA arthritis 04/18/17 12/25/23 History metoprolol tartrate 25 mg tablet 25 mg PO BID bp 04/18/17 12/25/23 History multivitamin (Multiple Vitamins 1 ea PO DAILY supplement 04/18/17 12/25/23 History tablet) tamsulosin 0.4 mg capsule 0.4 mg PO QHS prostate 04/18/17 12/25/23 History atorvastatin 80 mg tablet 80 mg PO QHS 09/23/23 12/25/23 History carbidopa 25 mg-levodopa 100 mg 1 tab PO 4X/DAY 09/23/23 12/25/23 History tablet (Sinemet) carvedilol 3.125 mg tablet 3.125 mg PO BID 09/23/23 12/25/23 History dofetilide 500 mcg capsule 500 mcg PO BID 09/23/23 12/25/23 History lisinopril 2.5 mg tablet 2.5 mg PO DAILY 09/23/23 12/25/23 History omeprazole 20 mg capsule,delayed 20 mg PO BID 09/23/23 12/25/23 History release spironolactone 25 mg tablet 37.5 mg PO DAILY 09/23/23 12/25/23 History (Aldactone) bisoprolol fumarate 5 mg tablet 5 mg PO DAILY 12/18/23 12/25/23 History cephalexin 500 mg capsule 500 mg PO BID 7 days #14 caps 12/18/23 12/25/23 Rx Have you fallen in the past year?: Yes (injury to scalp and right ear) Nurse's Note: pt here post op, no issues Subjective Details: Alma comes in for recheck of his right ear reconstruction following his fall last week. His denies any problems. Objective Details: The posterior dressing is in place. He has a moderate amount of antibiotic ointment on and I removed this much as I could. I cleaned the area with peroxide and asked her to do the same. I have asked her not to apply the antibiotic ointment for now. I will see him back next week for recheck and likely removal of the bolster at that time. He remains on anticoagulation. Coding Level of Care Code Global Post Op Diagnoses Complex laceration of right ear S01.311A [facility] Medical History Kidney stone Rheumatoid arthritis Prostate cancer Atrial fibrillation Surgical History H/O inguinal hernia repair Social History Smoking Status: Never smoker Assessment and Plan (No Qualifiers) Assessment and Plan (1) Complex laceration of right ear: Status: Acute Plan Details Additional Comments: He is to follow-up next week. 12/25/23 1733 Date Ramonita Ponce MD Cosigner Signature: Date (if applicable) CC: Normal [facility] 12 Lead EKGon 12-18-2023 12 Lead EKG [facility] Cardiovascular Services [address] [place] [address] 12 Lead EKG 12/18/23 1737 MR#: [id number] Acct: [id number] Name: ALMA BARROW Rep #: [id number] : 1945 78 From: Speedy Nuñez MD Attending Dr: Dr. Ramonita Ponce MD Status: DE P [facility] Ordering Dr: Del Benites MD Date: 12/18/23 Location: [facility] Sex: M C Admitted: Test Reason : preop Blood Pressure : / mmHG Vent. Rate : 056 BPM Atrial Rate : 056 BPM P-R Int : 172 ms QRS Dur : 090 ms QT Int : 500 ms P-R-T Axes : 048 026 010 degrees QTc Int : 482 ms Sinus bradycardia with marked sinus arrhythmia Prolonged QT Abnormal ECG When compared with ECG of 28-JAN-2019 11:49, QT has lengthened Confirmed by SPEEDY NUÑEZ MD ([id number]), non linear editor LORNE GAYLE ([id number]) on 12/19/2023 2:05:58 PM Referred By: Delmis Confirmed By:SPEEDY NUÑEZ MD 12/19/23 1406 Date Speedy Nuñez MD CC: Dr. Del Benites MD; Dr. Ramonita Ponce MD; [facility] Signed Normal [facility] Basic Metabolic Profile (BMP )on 12-18-2023 BUN/CRE 25.2 RATIO High 10-20 [facility] Comment on above: Performed By: #### L 500.2500, L100.0100 #### [facility] Laboratory [address] [place], [address] CA,Total 9.4 mg/dL Normal 8.5-10.1 [facility] Comment on above: Performed By: #### L 500.2500, L100.0100 #### [facility] [address] [place], [address] Chloride [Moles/Vol] 104 mmol/L Normal 98-107 [facility] Comment on above: Performed By: #### L 500.2500, L100.0100 #### [facility] [address] [place], [address] CO2 [Moles/Vol] 27.0 mmol/L Normal 21.0-32.0 [facility] Comment on above: Performed By: #### L 500.2500, L100.0100 #### [facility] Laboratory [address] [place], [address] Creatinine [Mass/Vol] 1.15 mg/dL Normal 0.70-1.30 [facility] Comment on above: Result Comment: The validity of the calculated GFR GFRAA in patients over 70 years has not been determined. Clinical correlation is essential. Performed By: #### L 500.2500, L100.0100 #### [facility] [address] [place], [address] ECRCL 68.38 ml/min Normal [facility] Comment on above: Performed By: #### L 500.2500, L100.0100 #### [facility] [address] [place], [address] EST GFR - AA 79 mL/min Normal >60 [facility] Comment on above: Result Comment: Afri can Taiwanese GFR Calc Performed By: #### L 500.2500, L100.0100 #### [facility] [address] [place], [address] GAP 6 Normal 5-15 [facility] Comment on above: Performed By: #### L 500.2500, L100.0100 #### [facility] [address] [place], [address] GFR/1.73 sq M.predicted among non-blacks MDRD (S/P/Bld) [Vol rate/Area] 65 mL/min/{1.73_m2} Normal >60 [facility] Comment on above: Result Comment: Non- GFR Calc Performed By: #### L 500.2500, L100.0100 #### [facility] [address] [place], [address] Glucose [Mass/Vol] 99 mg/dL Normal 74-106 [facility] Comment on above: Performed By: #### L 500.2500, L100.0100 #### [facility] [address] [place], [address] Potassium [Moles/Vol] 4.4 mmol/L Normal 3.5-5.1 [facility] Comment on above: Performed By: #### L 500.2500, L100.0100 #### [facility] [address] [place], [address] Sodium [Moles/Vol] 137 mmol/L Normal 136-145 [facility] Comment on above: Performed By: #### L 500.2500, L100.0100 #### [facility] [address] [place], [address] Urea nitrogen [Mass/Vol] 29 mg/dL High 7-18 [facility] Comment on above: Performed By: #### L 500.2500, L100.0100 #### [facility] Laboratory [address] [place], [address] Brain/Head without Contrasto n 12-18-2023 Brain/Head without Contrast [facility] Imaging Services [address] [place] [address] Brain/Head without Contrast MR#: [id number] Acct: [id number] Name: ALMA BARROW Rep #: [id number] : 1945 M 78 From: Rishi jalloh MD PCP: [facility] Status: REG ER Study: Brain/Head without Contrast Date of Exam: 11/27 04/21 Exam# [id number] Ordering Dr: Ron Jacobo MD [id number] STUDY: CT BRAIN WITHOUT CONTRAST REASON FOR EXAM: Male, 78 years old. trauma RADIATION DOSAGE (If Supplied By Facility): CTDIvol = ( 44.99 ) mGy, DLP = ( 846.73 ) mGycm TECHNIQUE: Transaxial CT imaging of the brain was performed without administration of intravenous contrast material. Individualized dose optimization techniques were used for this CT. COMPARISON: No relevant priors. , FINDINGS: Normal soft tissue structures. Normal calvarium. Normal size ventricles and extra-axial spaces for the patient''s age. Normal white matter tracts of the cerebral hemispheres. Normal basal ganglia and thalami. Normal brainstem. Normal cerebellum. There is no intracranial hemorrhage. There are no findings of an acute ischemic infarction. Normal visualized paranasal sinuses. CT/Brain/Head without Contrast IMPRESSION: Normal unenhanced CT scan of the brain. Electronically Signed: Rishi Mandujano MD at 16:03 EDT , CC: Dr. Ron Jacobo MD; [facility] Replenishment Merchandising Associate: Signed Normal [facility] CBC W/Diff, Automatedon 10-2 Absolute Lymph 1.11 X10 3/uL Normal 0.83-4.51 [facility] Comment on above: Performed By: #### L 500.2500, L100.0100 #### [facility] Laboratory [address] [place], [address] Absolute Neut 6.2 X10 3/uL Normal 2.0-7.7 [facility] Comment on above: Performed By: #### L 500.2500, L100.0100 #### [facility] [address] [place], [address] Basophils/100 WBC (Bld) 0.1 % Normal 0-1 [facility] Comment on above: Performed By: #### L 500.2500, L100.0100 #### [facility] [address] [place], [address] Eosinophils/100 WBC (Bld) 0.5 % Normal 0-5 [facility] Comment on above: Performed By: #### L 500.2500, L100.0100 #### [facility] [address] [place], [address] Erythrocyte distribution width (RBC) [Ratio] 13.8 % Normal 11.6-14.6 [facility] Comment on above: Performed By: #### L 500.2500, L100.0100 #### [facility] [address] [place], [address] Hematocrit (Bld) [Volume fraction] 35.1 % Low 40-54 [facility] Comment on above: Performed By: #### L 500.2500, L100.0100 #### [facility] [address] [place], [address] Hemoglobin (Bld) [Mass/Vol] 11.2 g/dL Low 13.0-16.5 [facility] Comment on above: Performed By: #### L 500.2500, L100.0100 #### [facility] [address] [place], [address] IG% 0.200 Normal 0.0-0.9 [facility] Comment on above: Result Comment: IG% - Immature Granulocytes (promyelocytes, myelocytes and metamyelocytes) > 1% indicates that a LEFT SHIFT is Present. Performed By: #### L 500.2500, L100.0100 #### [facility] [address] [place], [address] Lymphocytes/100 WBC (Bld) 13.8 % Low 19-41 [facility] Comment on above: Performed By: #### L 500.2500, L100.0100 #### [facility] [address] [place], [address] MCH (RBC) [Entitic mass] 31.7 pg Normal 27.0-32.0 [facility] Comment on above: Performed By: #### L 500.2500, L100.0100 #### [facility] [address] [place], [address] MCHC (RBC) [Mass/Vol] 31.9 g/dL Low 32-36 [facility] Comment on above: Performed By: #### L 500.2500, L100.0100 #### [facility] [address] [place], [address] MCV (RBC) [Entitic vol] 99.4 fL High 80-94 [facility] Comment on above: Performed By: #### L 500.2500, L100.0100 #### [facility] [address] [place], [address] Monocytes/100 WBC (Bld) 7.6 % Normal 0-10 [facility] Comment on above: Performed By: #### L 500.2500, L100.0100 #### [facility] [address] [place], [address] Neutrophils/100 WBC (Bld) 77.8 % High 47-70 [facility] Comment on above: Performed By: #### L 500.2500, L100.0100 #### [facility] [address] [place], [address] Nucleated RBC (Bld) [#/Vol] 0 10*3/uL Normal 0-5 [facility] Comment on above: Performed By: #### L 500.2500, L100.0100 #### [facility] [address] [place], [address] Platelet mean volume (Bld) [Entitic vol] 11.1 fL Normal 6.2-12.0 [facility] Comment on above: Performed By: #### L 500.2500, L100.0100 #### [facility] Laboratory [address] [place], [address] Platelets (Bld) [#/Vol] 175 10*3/uL Normal 150-450 [facility] Comment on above: Performed By: #### L 500.2500, L100.0100 #### [facility] [address] [place], [address] RBC (Bld) [#/Vol] 3.53 10*6/uL Low 4.6-6.2 [facility] Comment on above: Performed By: #### L 500.2500, L100.0100 #### [facility] [address] [place], [address] RDW SD 50.5 fl High 35.1-43.9 [facility] Comment on above: Performed By: #### L 500.2500, L100.0100 #### [facility] Laboratory [address] [place], [address] WBC (Bld) [#/Vol] 8.0 10*3/uL Normal 4.4-11.0 [facility] Comment on above: Performed By: #### L 500.2500, L100.0100 #### [facility] Laboratory [address] [place], [address] Discharge Instructionon 11-27 Discharge Instruction [facility] Medical Records Department [address] [place] [address] Instructions for Home/Discharge Instructions 12/18/231941 MR#: [id number] Acct: [id number] Name: ALMA BARROW Rep #: [id number] : 1945 78 From: Ramonita Ponce MD PCP: [facility] Status:REG [facility] Discharge Instructions Dressing / Incision Additional Dressing/Incision Instructions:: Keep your head elevated (recliner position) at night until seen in the office to decrease bleeding and swelling. Avoid bending and lifting for the next 3 weeks. Take the oral antibiotic (Keflex) twice a day until finished. May remove the cup dressing on the right ear tomorrow. Replace it at nighttime. Put a thin layer of antibiotic ointment (like Neosporin, bacitracin, or triple antibiotic ointment) on the exposed laceration edges on the ear and on the scalp 1 time a day. Keep the ear dry until seen in the office. Follow Up Care Please Follow Up With: Ramonita Ponce MD When: Next week Test Results: Test results from this visit will be discussed in further detail at your follow-up appointment, if applicable. Discharge Plan Admission Attending Provider: Ramonita Ponce Primary Care Provider: [facility] Instructions Print Language: Eritrean Discharge Orders/Prescriptions Prescriptions: New cephalexin 500 mg capsule 500 mg PO BID 7 Days Qty: 14 0RF No Action multivitamin [Multiple Vitamins] 1 EACH tablet 1 ea PO DAILY methotrexate sodium 2.5 MG tablet 25 mg PO SA tamsulosin 0.4 MG capsule 0.4 mg PO QHS folic acid 1 MG tablet 1 mg PO DAILY@0800 hydrochlorothiazide 25 MG tablet 12.5 mg PO DAILY hydroxychloroquine 200 MG tablet 400 mg PO DAILY metoprolol tartrate 25 MG tablet 25 mg PO BID cholecalciferol (vitamin D3) [Vitamin D3] 2,000 UNIT capsule 2,000 unit PO DAILY Eliquis 2.5 MG tablet 5 mg PO Q12H dofetilide 500 mcg capsule 500 mcg PO BID atorvastatin 80 mg tablet 80 mg PO QHS carbidopa-levodopa [Sinemet] 25-100 mg tablet 1 tab PO 4X/DAY carvedilol 3.125 mg tablet 3.125 mg PO BID Rx Instructions: must administer with a meal/food omeprazole 20 mg capsule,delayed release(DR/EC) 20 mg PO BID spironolactone [Aldactone] 25 mg tablet 37.5 mg PO DAILY lisinopril 2.5 mg tablet 2.5 mg PO DAILY bisoprolol fumarate 5 mg tablet 5 mg PO DAILY Patient Comments: LAST DOSE TAKEN AROUND 2230 ON 12/17/23 Referrals / [facility] [[facility] - Disposition Disposition (needs filled in before D/C Order can be placed): Home, Self Care 12/18/231946 Ramonita Ponce MD CC: [facility] Signed Normal [facility] Emergency Department Summary on 12-18-2023 Emergency Department Summary [facility] Medical Records Department [address] [place] [address] Emergency Department Summary 12/18/23 MR#: [id number] Acct: [id number] Name: ALMA BARROW Rep #: [id number] : 1945 78 From: Ron Jacobo MD PCP: [facility] Status:REG ER Location: ED HPI History of Present Illness Chief Complaint: Laceration Narrative Narrative: 78-year-old male past medical history of atrial fibrillation on Eliquis, Parkinson's disease, presents with fall with injury to his occiput and right ear. At around 1130 this morning, 3 hours ago, he states that he was picking corn. Went to take off his sweatshirt. In doing so, he states he fell backwards and hit the front end of a tractor. He sustained injury to the back of his head, and to his right ear. He denies loss of consciousness, no neck pain, no other injury. [facility] Medical History Kidney stone Rheumatoid arthritis Prostate cancer Atrial fibrillation Home Medications ???Medication ???Instructions ???Recorded ???Last Taken ???Type apixaban 2.5 mg tablet (Eliquis) 5 mg PO Q12H blood thinner 04/18/17 Unknown History cholecalciferol (vitamin D3) 50 2,000 unit PO DAILY supplement 04/18/17 Unknown History mcg (2,000 unit) capsule (Vitamin D3) folic acid 1 mg tablet 1 mg PO DAILY@0800 supplement 04/18/17 Unknown History hydrochlorothiazide 25 mg tablet 12.5 mg PO DAILY bp 04/18/17 Unknown History hydroxychloroquine 200 mg tablet 400 mg PO DAILY arthritis 04/18/17 Unknown History methotrexate sodium 2.5 mg tablet 25 mg PO SA arthritis 04/18/17 Unknown History metoprolol tartrate 25 mg tablet 25 mg PO BID bp 04/18/17 05/02/17 07:30 History multivitamin (Multiple Vitamins 1 ea PO DAILY supplement 04/18/17 Unknown History tablet) tamsulosin 0.4 mg capsule 0.4 mg PO QHS prostate 04/18/17 Unknown History atorvastatin 80 mg tablet 80 mg PO QHS 09/23/23 Unknown History carbidopa 25 mg-levodopa 100 mg 1 tab PO 4X/DAY 09/23/23 Unknown History tablet (Sinemet) carvedilol 3.125 mg tablet 3.125 mg PO BID 09/23/23 Unknown History dofetilide 500 mcg capsule 500 mcg PO BID 09/23/23 Unknown History lisinopril 2.5 mg tablet 2.5 mg PO DAILY 09/23/23 Unknown History omeprazole 20 mg capsule,delayed 20 mg PO BID 09/23/23 Unknown History release spironolactone 25 mg tablet 37.5 mg PO DAILY 09/23/23 Unknown History (Aldactone) bisoprolol fumarate 5 mg tablet 5 mg PO DAILY 12/18/23 12/17/23 History Allergy/AdvReac Type Severity Reaction Status Date / Time No Known Allergies Allergy Verified 12/18/23 13:19 Surgical History H/O inguinal hernia repair Social History Smoking Status: Never smoker ROS ROS ED ROS Narrative Focused review of systems positive for laceration on occiput of scalp, no neck pain. Positive avulsion laceration with through and through laceration to right ear. Denies other injury. EXAM Physical Exam Narrative Exam Narrative: GCS 15. ABCs are intact. Cardiovascular examination reveals an irregular bradycardia. Lungs are clear to auscultation bilaterally. Abdomen soft and nontender with normal active bowel sounds. Neurological examination is nonfocal and nonlateralizing, and consistent with Parkinson's. He is alert and oriented x 3, but at his baseline according to his . Examination of the scalp in the occipital area reveals a 2 cm laceration running vertically without active bleeding. No apparent galeal involvement. Inspection of the right ear does show a through and through laceration on the top outer portion of the auricle, with large skin avulsion surrounding. Const Vital Signs: 12/18/23 13:19 12/18/23 14:18 12/18/23 15:00 Temperature 97 F L 98.6 F Temperature Source Temporal Oral Pulse Rate 48 L 50 L 89 Respiratory Rate 16 16 14 Blood Pressure 135/84 H 130/80 H 136/64 H Blood Pressure Mean 101 96 88 Pulse Ox 99 99 98 Oxygen Delivery Method Room Air Room Air 12/18/23 15:32 12/18/23 15:58 Temperature 98.1 F Temperature Source Oral Pulse Rate 55 L 50 L Respiratory Rate 16 16 Blood Pressure 148/77 H 143/64 H Blood Pressure Mean 100 90 Pulse Ox 100 100 Oxygen Delivery Method Room Air Room Air MDM MDM MDM Narrative Medical decision making narrative: Differential diagnosis includes but not limited to skull fracture versus intracranial hemorrhage versus cervical spine fracture versus strain. Patient and his who is a retired [employer] think ronak t his last tetanus immunization was in 2020, 3 years ago. He does obtain imaging of the cervical spine and of the brain to rule out intracranial hemorrhage or skull fracture. I di (more content not included)... Normal [facility] MR/POSTOP.LOSon 12-18-2023 MR/POSTOP.ANE [facility] Medical Records Department [address] [place] [address] Anesthesia Postop Eval I 12/18/23 1950 MR#: [id number] Acct: [id number] Name: ALMA BARROW Rep #: [id number] : 1945 78 From: Jose Pradhan PCP: [facility] Status:REG SDC Y Race: C Location: [place] [address] Anesthesia: Postop Eval I Current Vital Signs Temperature: 98.5 F Pulse Rate: 63 Blood Pressure: 150/73 Respiratory Rate: 17 Pulse Ox: 100 Assessment Airway patent: Yes Spontaneous unlabored respirations: Yes nausea: No Vomiting: No Anesthesia Complication: No Fluid Hydration Crystalloid volume administer (ml): 1,000 Total IV fluid infused: 1,000 Progress Note Anesthesia document: Postop Eval 1 completed: Yes 12/18/231950 Date Jose Pradhan Cosigner Signature: Date CC: Signed Normal [facility] MR/[id number] [facility]-18-2023 [facility] Medical Records Department [address] [place] [address] Anesthesia Postop Eval II 12/18/231950 MR#: [id number] Acct: [id number] Name: ALMA BARROW Rep #: [id number] : 1945 78 From: oJse Pradhan PCP: [facility] Status:REG SD Y Race: C Location: [place] [address] Anesthesia Postop Eval I Sum Postop Eval Completion status Anesthesia document: Postop Eval 1 completed: Yes Anesthesia Postop Eval I Summary Anesthesia Postop Eval I Summary: Anesthesia Postop Eval I: Assessment Summary Airway patent Yes 12/18/23 19:50 TELEPHOTO [email or web address] Spontaneous unlabored Yes 12/18/23 19:50 TELEPHOTO [email or web address] respirations Mental status nausea No 12/18/23 19:50 TELEPHOTO [email or web address] Vomiting No 12/18/23 19:50 TELEPHOTO [email or web address] Anesthesia Postop Eval I: Fluid Summary Crystalloid volume administer 1,000 12/18/23 19:50 TELEPHOTO [email or web address] (ml) Colloids volume administered ( ml) Blood Product volume administered (ml) Total IV fluid infused 1,000 12/18/23 19:50 TELEPHOTO [email or web address] Anesthesia Postop Eval I: Summary Notes Anesthesia Complication No 12/18/23 19:50 TELEPHOTO [email or web address] Anesthesia Complication Comment: Post-operative progress note Anesthesia: Postop Eval II Evaluation Mental status: Awake Pain Level: 0 nausea: No Vomiting: No 12/18/231950 Date Jose Alonsoigner Signature: Date CC: Signed Normal [facility] Operative Reporton 4 Operative Report [facility] Medical Records Department [address] [place] [address] Operative Report 12/18/231946 MR#: [id number] Acct: [id number] Name: ALMA BARROW Rep #: [id number] : 1945 78 From: Ramonita Ponce MD PCP: [facility] Status:[facility] Location: [place] [address] Problems Associated Problem List Diagnoses (1) Complex laceration of right ear: (2) Occipital scalp laceration: Report of Operation Date of Procedure: 12/18/23 Pre-Operative Diagnosis: Complex laceration and degloving right ear Laceration scalp apex Post-Operative Diagnosis: Same Surgery/Procedure Performed:: Complex closure of right ear laceration (7 cm) Closure of scalp laceration (3 cm) Surgeon: Ramonita Ponce Type of Anesthesia: MAC Specimen's removed: None Estimated Blood Loss (mL): Minimal Description of Procedure: The patient presents to the ER today after having falling while working outside sustaining a laceration and degloving injury of the right ear as well as a scalp laceration. Plastic surgery was consulted for ear repair. On examination, the patient had a stellate and degloving injury of the right ear helical cartilage. This extended through and through to the posterior ear. There was no LOC and neurologic workup including CT scan was reportedly within normal limits. An informed consent was obtained from the patient prior to surgery. The patient is brought to the operating room and placed under MAC anesthesia in the supine position. The right ear and scalp are prepped and draped in the usual sterile fashion. 1% Xylocaine with epinephrine is used to perform a block in in the periphery of the ear. Xylocaine with epinephrine is also used to inject the scalp area. We initially began with exploring the wound to determine the depth and extent of the wound. The skin is degloved off the anterior surface of the helical cartilage. The skin appears to be viable. After thoroughly cleansing the wound, the tissue is tacked in place. This is done with chromic suture. With a satisfactory orientation of the closure, refinement of the closure is done with a running 4-0 chromic suture. In the helical area, a compression dressing is placed in order to discourage formation of a hematoma especially in light of the patient's Eliquis use. This bolster is constructed of Xeroform and tied in place with chromic in a through and through fashion of the ear. Antibiotic ointment is placed on the remainder of the incisions. A Юлия dressing is placed over the ear. On the scalp, the incision is closed with a running locked chromic suture after exploring the wound which does not extend through galea.. Antibiotic ointment is placed on the site. He tolerated the procedure well was taken to the recovery area in an awake and stable condition. Needle and sponge counts are correct. Complications None Admit VTE Documentation VTE Mechan Device Prophylaxis: SCD's 12/18/231953 Cosigner Signature (if applicable): CC: Dr. Ramonita Ponce MD; [facility] Signed Normal [facility] Spine Cervical without Contr ason 12-18-2023 Spine Cervical without Contras [facility] Imaging Services [address] [place] [address] Spine Cervical without Contras MR#: [id number] Acct: [id number] Name: ALMA BARROW Rep #: [id number] : 1945 M 78 From: Rishi jalloh MD PCP: [facility] Status: REG ER Study: Spine Cervical without Contras Date of Exam: Exam# [id number] Ordering Dr: Ron Jacobo MD [id number] STUDY: CT CERVICAL SPINE WITHOUT CONTRAST REASON FOR EXAM: Male, 78 years old. Trauma RADIATION DOSAGE (If Supplied By Facility): CTDIvol = ( 22.48 ) mGy, DLP = ( 423.11 ) mGycm TECHNIQUE: High resolution transaxial imaging was performed without contrast material. Sagittal and coronal images were reconstructed. Individualized dose optimization techniques were used for this CT. COMPARISON: None FINDINGS: No definite acute fracture/dislocation. The cervical junction is intact. C1-C2 articulation is intact. Curvature is within normal limits. There is normal alignment. Facet joints are intact at all levels bilaterally. No jumped facets. There is multilevel spondyloarthropathy. Multilevel degenerative disc disease seen. Multilevel loss of disc height. Multilevel posterior marginal osteophytes and disc bulges. Multilevel neural foraminal narrowing. Visualized paraspinal soft tissues and structures show no acute abnormalities. CT/Spine Cervical without Contras IMPRESSION: There is no definite acute fracture/dislocation. Degenerative changes. Electronically Signed: Rishi Mandujano MD at 16:05 EDT , CC: Dr. Ron Jacobo MD; [facility] Replenishment Merchandising Associate: Signed Normal [facility] Abdomen/Pelvis without Conto n 09-23-2023 Abdomen/Pelvis without Cont [facility] Imaging Services [address] [place] [id number] Abdomen/Pelvis without Cont MR#: [id number] Acct: [id number] Name: ALMA BARROW Rep #: [id number] : 1945 M 78 From: Rick Medina PCP: [facility] Status: REG ER Study: Abdomen/Pelvis without Cont Date of Exam: 08/27 10/19 Exam# [id number] Ordering Dr: Johnny Jonas DO [id number] INDICATION: Kidney Stone EXAMINATION: CT ABDOMEN AND PELVIS WITHOUT CONTRAST - CT Abdomen And Pelvis W/O Contrast Injection TECHNIQUE: Helically acquired images were obtained of the abdomen and pelvis without oral or IV contrast. The protocol utilizes one or more of the following dose reduction techniques: automated exposure control, adjustment of mA and/or kV according to patient size,and/or use of iterative reconstruction technique. IV Contrast dosage and agent: None. Oral contrast: None. RADIATION DOSAGE (If Supplied By Facility): CTDIvol = ( 13.03 ) mGy, DLP = ( 660.72 ) mGycm COMPARISON: No relevant prior comparison study available __ FINDINGS: LOWER CHEST: Mild chronic changes. No infiltrate. Coronary calcifications. No cardiomegaly or pericardial effusion. LIVER: Homogeneous. No focal mass. GALLBLADDER AND BILIARY TREE: No calcified gallstones. No gallbladder distension or wall edema. No intra- or extrahepatic biliary ductal dilation. PANCREAS: No focal cystic or solid mass. SPLEEN: Normal size without focal cystic or solid mass. ADRENAL GLANDS: No nodules. KIDNEYS AND URETERS: Normal renal size and position. No hydronephrosis. PERITONEUM: No ascites or free air. No other fluid collection. BOWEL: No evidence of acute appendicitis. No stomach or bowel distension. No focal inflammatory change. LYMPH NODES: No enlarged mesenteric or retroperitoneal lymph nodes. VESSELS: There are sclerotic calcifications of the abdominal aorta. Mild fusiform suprarenal and infrarenal aortic aneurysm measuring up to 2.9 cm in transverse diameter. URINARY BLADDER: Not well distended. REPRODUCTIVE ORGANS: Prostatic calcifications. No pelvic mass. ABDOMINAL WALL: Degenerative changes of the spine. BONES: No lytic or blastic abnormality. CT/Abdomen/Pelvis without Cont IMPRESSION: 1. No focal acute inflammatory process. 2. No evidence of intrauterine tract stones or hydronephrosis. 3. Mild fusiform abdominal aortic aneurysm. Electronically Signed: Rick Childress MD at 12:22 EDT , CC: Dr. Johnny Jonas, DO; [facility] Replenishment Merchandising Associate: Signed Normal [facility] Basic Metabolic Profile (BMP )on 09-23-2023 BUN/CRE 24.0 RATIO High 10-20 [facility] Comment on above: Performed By: #### L 100.0100, L500.2500 #### [facility] Laboratory [address] [place], [address] CA,Total 9.1 mg/dL Normal 8.5-10.1 [facility] Comment on above: Performed By: #### L 100.0100, L500.2500 #### [facility] [address] [place], [address] Chloride [Moles/Vol] 104 mmol/L Normal 98-107 [facility] Comment on above: Performed By: #### L 100.0100, L500.2500 #### [facility] [address] [place], [address] CO2 [Moles/Vol] 28.0 mmol/L Normal 21.0-32.0 [facility] Comment on above: Performed By: #### L 100.0100, L500.2500 #### [facility] [address] [place], [address] Creatinine [Mass/Vol] 0.92 mg/dL Normal 0.70-1.30 [facility] Comment on above: Result Comment: The validity of the calculated GFR GFRAA in patients over 70 years has not been determined. Clinical correlation is essential. Performed By: #### L 100.0100, L500.2500 #### [facility] [address] [place], [address] ECRCL 86.07 ml/min Normal [facility] Comment on above: Performed By: #### L 100.0100, L500.2500 #### [facility] [address] [place], [address] EST GFR - AA 103 mL/min Normal >60 [facility] Comment on above: Result Comment: Afri can Taiwanese GFR Calc Performed By: #### L 100.0100, L500.2500 #### [facility] [address] [place], [address] GAP 5 Normal 5-15 [facility] Comment on above: Performed By: #### L 100.0100, L500.2500 #### [facility] [address] [place], [address] GFR/1.73 sq M.predicted among non-blacks MDRD (S/P/Bld) [Vol rate/Area] 85 mL/min/{1.73_m2} Normal >60 [facility] Comment on above: Result Comment: Non- GFR Calc Performed By: #### L 100.0100, L500.2500 #### [facility] [address] [place], [address] Glucose [Mass/Vol] 103 mg/dL Normal 74-106 [facility] Comment on above: Result Comment: Fast ing Glucose result from 100 to 125 mg/dL suggests IMPAIRED HOMEOSTASIS per A.D.A. criteria. Performed By: #### L 100.0100, L500.2500 #### [facility] [address] [place], [address] Potassium [Moles/Vol] 3.9 mmol/L Normal 3.5-5.1 [facility] Comment on above: Performed By: #### L 100.0100, L500.2500 #### [facility] [address] [place], [address] Sodium [Moles/Vol] 137 mmol/L Normal 136-145 [facility] Comment on above: Performed By: #### L 100.0100, L500.2500 #### [facility] [address] [place], [address] Urea nitrogen [Mass/Vol] 22 mg/dL High 7-18 [facility] Comment on above: Performed By: #### L 100.0100, L500.2500 #### [facility] [address] [place], [address] CBC W/Diff, Automatedon 08-27 Absolute Lymph 1.36 X10 3/uL Normal 0.83-4.51 [facility] Comment on above: Performed By: #### L 100.0100, L500.2500 #### [facility] [address] [place], [address] Absolute Neut 4.3 X10 3/uL Normal 2.0-7.7 [facility] Comment on above: Performed By: #### L 100.0100, L500.2500 #### [facility] [address] [place], [address] Basophils/100 WBC (Bld) 0.5 % Normal 0-1 [facility] Comment on above: Performed By: #### L 100.0100, L500.2500 #### [facility] [address] [place], [address] Eosinophils/100 WBC (Bld) 0.6 % Normal 0-5 [facility] Comment on above: Performed By: #### L 100.0100, L500.2500 #### [facility] [address] [place], [address] Erythrocyte distribution width (RBC) [Ratio] 13.4 % Normal 11.6-14.6 [facility] Comment on above: Performed By: #### L 100.0100, L500.2500 #### [facility] [address] [place], [address] Hematocrit (Bld) [Volume fraction] 40.9 % Normal 40-54 [facility] Comment on above: Performed By: #### L 100.0100, L500.2500 #### [facility] [address] [place], [address] Hemoglobin (Bld) [Mass/Vol] 13.4 g/dL Normal 13.0-16.5 [facility] Comment on above: Performed By: #### L 100.0100, L500.2500 #### [facility] [address] [place], [address] IG% 0.300 Normal 0.0-0.9 [facility] Comment on above: Result Comment: IG% - Immature Granulocytes (promyelocytes, myelocytes and metamyelocytes) > 1% indicates that a LEFT SHIFT is Present. Performed By: #### L 100.0100, L500.2500 #### [facility] [address] [place], [address] Lymphocytes/100 WBC (Bld) 21.4 % Normal 19-41 [facility] Comment on above: Performed By: #### L 100.0100, L500.2500 #### [facility] [address] [place], [address] MCH (RBC) [Entitic mass] 31.8 pg Normal 27.0-32.0 [facility] Comment on above: Performed By: #### L 100.0100, L500.2500 #### [facility] [address] [place], [address] MCHC (RBC) [Mass/Vol] 32.8 g/dL Normal 32-36 [facility] Comment on above: Performed By: #### L 100.0100, L500.2500 #### [facility] [address] [place], [address] MCV (RBC) [Entitic vol] 97.1 fL High 80-94 [facility] Comment on above: Performed By: #### L 100.0100, L500.2500 #### [facility] [address] [place], [address] Monocytes/100 WBC (Bld) 9.8 % Normal 0-10 [facility] Comment on above: Performed By: #### L 100.0100, L500.2500 #### [facility] [address] [place], [address] Neutrophils/100 WBC (Bld) 67.4 % Normal 47-70 [facility] Comment on above: Performed By: #### L 100.0100, L500.2500 #### [facility] [address] [place], [address] Nucleated RBC (Bld) [#/Vol] 0 10*3/uL Normal 0-5 [facility] Comment on above: Performed By: #### L 100.0100, L500.2500 #### [facility] [address] [place], [address] Platelet mean volume (Bld) [Entitic vol] 11.7 fL Normal 6.2-12.0 [facility] Comment on above: Performed By: #### L 100.0100, L500.2500 #### [facility] [address] [place], [address] Platelets (Bld) [#/Vol] 174 10*3/uL Normal 150-450 [facility] Comment on above: Performed By: #### L 100.0100, L500.2500 #### [facility] [address] [place], [address] RBC (Bld) [#/Vol] 4.21 10*6/uL Low 4.6-6.2 [facility] Comment on above: Performed By: #### L 100.0100, L500.2500 #### [facility] [address] [place], [address] RDW SD 47.8 fl High 35.1-43.9 [facility] Center Comment on above: Performed By: #### L 100.0100, L500.2500 #### [facility] [address] [place], [address] WBC (Bld) [#/Vol] 6.4 10*3/uL Normal 4.4-11.0 [facility] Comment on above: Performed By: #### L 100.0100, L500.2500 #### [facility] [address] [place], [address] Emergency Department Summary on 09-23-2023 Emergency Department Summary [facility] Medical Records Department [address] [facility] [place] [address] Emergency Department Summary 09/23/23 MR#: [id number] Acct: [id number] Name: ALMA BARROW Rep #: [id number] : 1945 78 From: Johnny Jonas DO PCP: [facility] Status:[facility] ER Location: ED HPI History of Present Illness Chief Complaint: Flank Pain Informant: patient and spouse/S.O. Narrative Narrative: 78-year-old male presenting to the emergency room with right-sided abdominal pain. Patient states that during the day yesterday he was maneuvering/manipulat ing a water heater. He states that around 10:00 last night he began to have a pain in the right flank and today notes more on the right lower side of his abdomen. Nothing seems to make it better or worse. No nausea vomiting. No testicular pain. No urinary symptoms. He has had a couple bowel movement since the pain began which she describes as normal. He has a history of atrial fibrillation on Eliquis, prostate cancer (currently on break from Lupron therapy), inguinal hernia repair, rheumatoid arthritis, and kidney stones. He denies any fevers. No bulging/masses of the abdomen felt. No rashes. No reported fever. History of AAA that is monitored yearly [facility] Medical History (Updated 09/23/23 @ 12:[address] Johnny Jonas, ) Kidney stone Rheumatoid arthritis Prostate cancer Atrial fibrillation Home Medications ???Medication ???Instructions ???Recorded ???Last Taken ???Type apixaban 2.5 mg tablet (Eliquis) 5 mg PO Q12H blood thinner 04/18/17 Unknown History cholecalciferol (vitamin D3) 50 2,000 unit PO DAILY supplement 04/18/17 Unknown History mcg (2,000 unit) capsule (Vitamin D3) folic acid 1 mg tablet 1 mg PO DAILY@0800 supplement 04/18/17 Unknown History hydrochlorothiazide 25 mg tablet 12.5 mg PO DAILY bp 04/18/17 Unknown History hydroxychloroquine 200 mg tablet 400 mg PO DAILY arthritis 04/18/17 Unknown History methotrexate sodium 2.5 mg tablet 25 mg PO SA arthritis 04/18/17 Unknown History metoprolol tartrate 25 mg tablet 25 mg PO BID bp 04/18/17 05/02/17 07:30 History multivitamin (Multiple Vitamins 1 ea PO DAILY supplement 04/18/17 Unknown History tablet) tamsulosin 0.4 mg capsule 0.4 mg PO QHS prostate 04/18/17 Unknown History atorvastatin 80 mg tablet 80 mg PO QHS 09/23/23 Unknown History carbidopa 25 mg-levodopa 100 mg 1 tab PO 4X/DAY 09/23/23 Unknown History tablet (Sinemet) carvedilol 3.125 mg tablet 3.125 mg PO BID 09/23/23 Unknown History dofetilide 500 mcg capsule 500 mcg PO BID 09/23/23 Unknown History lisinopril 2.5 mg tablet 2.5 mg PO DAILY 09/23/23 Unknown History omeprazole 20 mg capsule,delayed 20 mg PO BID 09/23/23 Unknown History release spironolactone 25 mg tablet 37.5 mg PO DAILY 09/23/23 Unknown History (Aldactone) Allergy/AdvReac Type Severity Reaction Status Date / Time No Known Allergies Allergy Verified 04/18/17 11:01 Surgical History (Updated 09/23/23 @ 10:[address] Johnny Jonas DO) H/O inguinal hernia repair Social History Smoking Status: Never smoker ROS ROS ED Constitutional Constitutional ED: Denies chills, fever(s) or weight loss Eyes Eyes: Denies change in vision or diplopia ENT ENT ED: Denies ear pain, rhinorrhea or sore throat Cardiovascular Cardiovascular: Denies chest pain, orthopnea, palpitations or racing heartbeat Respiratory/Chest Respiratory/Chest: Denies cough, dyspnea or orthopnea Gastrointestinal Gastrointestinal: Reports abdominal pain; Denies diarrhea, nausea or vomiting Genitourinary Genitourinary ED: Denies dysuria, hematuria or urinary frequency Musculoskeletal Musculoskeletal: Reports back pain; Denies arthralgias or myalgias Integumentary Denies abscess or rash Neurologic Neurologic: Denies headache(s) or weakness Psychiatric Psychiatric: Denies anxiety, depression, suicidal ideation or suicidal thoughts Endocrine Endocrinology: Denies polydipsia, polyphagia or polyuria Allergic/Immunologic Allergic/Immunologic ED: Denies mouth swelling, tongue swelling or urticaria EXAM Physical Exam Const Vital Signs: 09/23/23 09:42 Temperature 97.6 F L Temperature Source Oral Pulse Rate 69 Respiratory Rate 16 Blood Pressure 111/68 Blood Pressure Mean 82 Pulse Ox 100 Oxygen Delivery Method Room Air Positive well nourished and well developed General Appearance ED: well developed HEENT Reports normocephalic, head/scalp atraumatic and moist mucous membranes Eyes PERRL and EOMs intact bilaterally Neck no lymphadenopathy, supple and no JVD Resp normal respiratory effort and clear to auscultation bilaterally Cardio regular rate, regular rhythm and no murmurs GI GI Narrative: Mild tendern (more content not included)... Normal [facility] Urinalysis, Completeon 09-22 BACTERIA 0 SEEN Normal None Seen [facility] Comment on above: Order Comment: CLEAN CATCH Performed By: #### L 400.0001 #### [facility] [address] [place], [place], [id number] EPI,SQUAMOUS 0 SEEN Normal 0-5 [facility] Comment on above: Order Comment: CLEAN CATCH Performed By: #### L 400.0001 #### [facility] [address] [place], [address] Mucus Ql (Urine sed) 0 SEEN Normal [facility] Comment on above: Order Comment: CLEAN CATCH Performed By: #### L 400.0001 #### [facility] [address] [place], [address] RBC 0 SEEN Normal 0-5 [facility] Comment on above: Order Comment: CLEAN CATCH Performed By: #### L 400.0001 #### [facility] [address] [place], [address] WBC 0 SEEN Normal 0-5 [facility] Comment on above: Order Comment: CLEAN CATCH Performed By: #### L 400.0001 #### [facility] [address] [place], [place], [address] XR ELBOW SPECIAL VIEWS AP/LA T/OTHER RIGHTon 09-12-2021 [facility] XR Elbow - right AP and Late ral and obliqueon 09-12-2021 IMPRESSION: Findings most compatible with olecranon bursitis. Replenishment Merchandising Associate: CHADD Transcribe Date/Time: Sep 12 2021 4:28P Dictated by : JASON GALO MD This examination was interpreted and the report reviewed and electronically signed by: JASON GALO MD on Sep 12 2021 4:29PM EST [facility]_DO_NOT_USE _DIVISION OF RADIOLOGY * * *Final Report* * * DATE OF EXAM: Sep 12 2021 4:16PM WOX [id number] - XR ELBOW 3V AP/LAT/OTHER RT / PROCEDURE REASON: Elbow swelling, right * * * * Physician Interpretation * * * * CLINICAL INDICATION: Elbow swelling TECHNIQUE: 3 view radiographic study of the right elbow COMPARISON: None FINDINGS: Soft tissue swelling overlying the olecranon process most compatible with olecranon bursitis. No abnormal elevation of the anterior or posterior fat pad to suggest elbow joint effusion. Olecranon process enthesophyte present. Mild degenerative changes with mild hypertrophic spur formation in the radiocapitellar and ulnar trochlear joint. Well-corticated ossicle adjacent to the lateral condyle. Phleboliths in the soft tissues of the forearm. [facility]_DO_NOT_USE _DIVISION OF RADIOLOGY Provider, [facility] Madelaineen borrego [place] - 09/12/2021 * * *Final Report* * * DATE OF EXAM: Sep 12 2021 4:16PM WOX 5325 - XR ELBOW 3V AP/LAT/OTHER RT / PROCEDURE REASON: Elbow swelling, right * * * * Physician Interpretation * * * * CLINICAL INDICATION: Elbow swelling TECHNIQUE: 3 view radiographic study of the right elbow COMPARISON: None FINDINGS: Soft tissue swelling overlying the olecranon process most compatible with olecranon bursitis. No abnormal elevation of the anterior or posterior fat pad to suggest elbow joint effusion. Olecranon process enthesophyte present. Mild degenerative changes with mild hypertrophic spur formation in the radiocapitellar and ulnar trochlear joint. Well-corticated ossicle adjacent to the lateral condyle. Phleboliths in the soft tissues of the forearm. IMPRESSION IMPRESSION: Findings most compatible with olecranon bursitis. Replenishment Merchandising Associate: CHADD Transcribe Date/Time: Sep 12 2021 4:28P Dictated by : JASON GALO MD This examination was interpreted and the report reviewed and electronically signed by: JASON GALO MD on Sep 12 2021 4:29PM EST [facility] Radiology Study observation (narrative) [facility] XR Elbow - right AP and Late ral and obliqueOrdered By: [facility] Provider on 09-12-2021 [facility] XR Chest PA and Lateralon IMPRESSION: No acute radiographic abnormality. Replenishment Merchandising Associate: [facility] Transcribe Date/Time: Nov 19 2020 8:44A Dictated by : MARY SHAH MD This examination was interpreted and the report reviewed and electronically signed by: MARY SHAH MD on Nov 19 2020 8:45AM [facility] DIVISION OF RADIOLOGY * * *Final Report* * * DATE OF EXAM: Nov 19 2020 8:43AM WOX 5291 - XR CHEST 2V FRONTAL/LAT / PROCEDURE REASON: Cough * * * * Physician Interpretation * * * * EXAMINATION: CHEST RADIOGRAPH (2 VIEW FRONTAL & LATERAL) CLINICAL HISTORY: Cough MQ: XC2_6 EXAM DATE/TIME: 11/19/2020 8:43 AM COMPARISON: No relevant prior studies available. RESULT: Lines, tubes, and devices: None. Lungs and pleura: No consolidation. No lung mass. No pleural effusion. No pneumothorax. Cardiomediastinal silhouette: Normal cardiomediastinal silhouette. Bones and soft tissues: Unremarkable. DIVISION OF RADIOLOGY Provider, [facility] Imagin g [place] - 11/19/2020 * * *Final Report* * * DATE OF EXAM: Nov 19 2020 8:43AM WOX 5291 - XR CHEST 2V FRONTAL/LAT / PROCEDURE REASON: Cough * * * * Physician Interpretation * * * * EXAMINATION: CHEST RADIOGRAPH (2 VIEW FRONTAL & LATERAL) CLINICAL HISTORY: Cough MQ: XC2_6 EXAM DATE/TIME: 11/19/2020 8:43 AM COMPARISON: No relevant prior studies available. RESULT: Lines, tubes, and devices: None. Lungs and pleura: No consolidation. No lung mass. No pleural effusion. No pneumothorax. Cardiomediastinal silhouette: Normal cardiomediastinal silhouette. Bones and soft tissues: Unremarkable. IMPRESSION IMPRESSION: No acute radiographic abnormality. Replenishment Merchandising Associate: [employer] Transcribe Date/Time: Nov 19 2020 8:44A Dictated by : MARY SHAH MD This examination was interpreted and the report reviewed and electronically signed by: MARY SHAH MD on Nov 19 2020 8:45AM EST [facility] Radiology Study observation (narrative) [facility] XR Chest PA and LateralOrder ed By: [facility] Provider on 11-19-2020 [facility] XR Foot - left AP and Latera l and obliqueon 03-22-2020 Addendum by Provider , [facility] [place] on 03/22/2020 8:17 AM EST * * *Final Report* * * DATE OF EXAM: Mar 22 2020 8:09AM WOX 5336 - XR FOOT 3V AP/LAT/OBL LT / PROCEDURE REASON: Left foot infection * * * * Physician Interpretation * * * * Left foot HISTORY: 74 years old Clinical information: Left foot infection stepped on metal wire. week ago. still has pain plantar distal left heel TECHNIQUE: Images: XR FOOT 3V AP/LAT/OBL LT Comparison: None. RESULT: Findings: There is hypertrophic spurring of the first MTP joint. Joint spaces otherwise unremarkable. No fracture bony destruction. There is a small calcaneal enthesophyte at the origin of the plantar fascia. No evidence of a radiopaque foreign body. IMPRESSION: No acute bony finding. No evidence of a radiopaque foreign body Replenishment Merchandising Associate: [employer] Transcribe Date/Time: Mar 22 2020 8:13A Dictated by : SOPHIE DAVILA MD This examination was interpreted and the report reviewed and electronically signed by: SOPHIE DAVILA MD on Mar 22 2020 8:17AM EST [facility] Radiology Study observation (narrative) [facility] XR Foot - left AP and Latera l and obliqueOrdered By: [facility] Provider on 03-22-2020 [facility] .Auto Diffon 04-24-2018 Ammonia mass conc (P) 1.00 10 3/mcL Normal 0.15-1.00 [facility] ([place]) Comment on above: Performed By: #### B MP, GFR #### [place] [address] #### CBC, ADIFF, ANEU #### [address] [address] Basophils #/vol (Bld) 0.00 10 3/mcL Normal 0.00-0.19 [facility] ([place]) Comment on above: Performed By: #### B MP, GFR #### [place] [address] #### CBC, ADIFF, ANEU #### [address] [address] Basophils/100 WBC (Bld) 0.1 % Normal 0.0-2.5 [facility] ([place]) Comment on above: Performed By: #### B MP, GFR #### [place] [address] #### CBC, ADIFF, ANEU #### [address] [address] Eosinophils #/vol (Bld) 0.00 10 3/mcL Normal 0.00-0.40 [facility] ([place]) Comment on above: Performed By: #### B MP, GFR #### [place] [address] #### CBC, ADIFF, ANEU #### [address] [address] Eosinophils/100 WBC (Bld) 0.0 % Normal 0.0-7.0 [facility] ([place]) Comment on above: Performed By: #### B MP, GFR #### [place] [address] #### CBC, ADIFF, ANEU #### [address] [address] Lymphocytes #/vol (Bld) 0.90 10 3/mcL Normal 0.77-3.85 [facility] ([place]) Comment on above: Performed By: #### B MP, GFR #### [place] [address] #### CBC, ADIFF, ANEU #### [address] [address] Lymphocytes/100 WBC (Bld) 6.7 % Low 10.0-50.0 [facility] ([place]) Comment on above: Performed By: #### B MP, GFR #### [place] [address] #### CBC, ADIFF, ANEU #### [address] [address] Monocytes/100 WBC (Bld) 7.2 % Normal 1.7-13.0 [facility] ([place]) Comment on above: Performed By: #### B MP, GFR #### [place] [address] #### CBC, ADIFF, ANEU #### [address] [address] Neutrophils/100 WBC (Bld) 86.0 % High 37.0-80.0 [facility] ([place]) Comment on above: Performed By: #### B MP, GFR #### [place] [address] #### CBC, ADIFF, ANEU #### [address] [address] .GFRon 04-24-2018 GFR Non- 78 ml/min/1.73sqm Normal [facility] ([place]) Comment on above: Result Comment: GFR Population mean for , Non- Americans Ages 20-29 = 116 mL/min/1.73 sq.m. Ages 30-39 = 107 mL/min/1.73 sq.m. Ages 40-49 = 99 mL/min/1.73 sq.m. Ages 50-59 = 93 mL/min/1.73 sq.m. Ages 60-69 = 85 mL/min/1.73 sq.m. Ages 70+ = 75 mL/min/1.73 sq.m. Chronic Kidney Disease: Less than 60 mL/min/1.73 square meters End Stage Renal Disease: Less than 15 mL/min/1.73 square meters Performed By: #### B MP, GFR #### [place] [address] #### LISSETTE CASE, ANEU #### [place] [address] [address] GFR 94 ml/min/1.73sqm Normal [facility] ([place]) Comment on above: Result Comment: GFR Population mean for , Non- Americans Ages 20-29 = 116 mL/min/1.73 sq.m. Ages 30-39 = 107 mL/min/1.73 sq.m. Ages 40-49 = 99 mL/min/1.73 sq.m. Ages 50-59 = 93 mL/min/1.73 sq.m. Ages 60-69 = 85 mL/min/1.73 sq.m. Ages 70+ = 75 mL/min/1.73 sq.m. Chronic Kidney Disease: Less than 60 mL/min/1.73 square meters End Stage Renal Disease: Less than 15 mL/min/1.73 square meters Performed By: #### B MP, GFR #### [place] [address] #### EVIE, LISSETTE, ANEU #### [address] [address] .NEUABSon 04-24-2018 Neutrophils #/vol (Bld) 11.60 10 3/mcL High 2.85-6.16 [facility] ([place]) Comment on above: Performed By: #### B MP, GFR #### [place] [address] #### CBC, ADIFF, ANEU #### [address] [address] BMPon 04-24-2018 Calcium mass conc 8.3 mg/dL Low 8.4-10.2 [facility] ([place]) Comment on above: Performed By: #### B MP, GFR #### [place] [address] #### CBC, ADIFF, ANEU #### [address] [address] Chloride molar conc 105 mmol/L Normal 98-107 [facility] ([place]) Comment on above: Performed By: #### B MP, GFR #### [place] [address] #### CBC, ADIFF, ANEU #### [address] [address] CO2 molar conc 30 mmol/L Normal 23-31 [facility] ([place]) Comment on above: Performed By: #### B MP, GFR #### [place] [address] #### CBC, ADIFF, ANEU #### [address] [address] Creatinine mass conc 0.95 mg/dL Normal 0.70-1.30 [facility] ([place]) Comment on above: Performed By: #### B MP, GFR #### [place] [address] #### CBC, ADIFF, ANEU #### [address] [address] Electrolyte Balance 9.0 mEq/L Normal [facility] ([place]) Comment on above: Performed By: #### B MP, GFR #### [place] [address] #### CBC, ADIFF, ANEU #### [address] [address] Glucose mass conc 114 mg/dL High 83-110 [facility] ([place]) Comment on above: Performed By: #### B MP, GFR #### [address] [address] #### CBC, ADIFF, ANEU #### [address] [address] Potassium molar conc 4.6 mmol/L Normal 3.5-5.1 [facility] ([place]) Comment on above: Performed By: #### B MP, GFR #### [address] [address] #### CBC, ADIFF, ANEU #### [address] [address] Sodium molar conc 144 mmol/L Normal 136-145 [facility] ([place]) Comment on above: Performed By: #### B MP, GFR #### [place] [address] #### CBC, ADIFF, ANEU #### [address] [address] Urea nitrogen mass conc 18 mg/dL Normal 7-18 [facility] ([place]) Comment on above: Performed By: #### B MP, GFR #### [address] [address] #### CBC, ADIFF, ANEU #### [address] [address] Urea nitrogen/Creatinine mass ratio 19 ratio Normal 7-27 [facility] ([place]) Comment on above: Performed By: #### B MP, GFR #### [address] [address] #### CBC, ADIFF, ANEU #### [address] [address] CBCon 04-24-2018 Erythrocyte distribution width Ratio (RBC) 14.0 % Normal 11.5-14.5 [facility] ([place]) Comment on above: Performed By: #### B MP, GFR #### [address] [address] #### CBC, ADIFF, ANEU #### [address] [address] Hematocrit Volume Fraction (Bld) 34.0 % Low 42.0-52.0 [facility] ([place]) Comment on above: Performed By: #### B MP, GFR #### [address] [address] #### CBC, ADIFF, ANEU #### [address] [address] Hemoglobin mass conc (Bld) 11.5 G/dL Low 14.0-18.0 [facility] ([place]) Comment on above: Performed By: #### B MP, GFR #### [place] [address] #### CBC, ADIFF, ANEU #### [address] [address] MCH Entitic mass (RBC) 32.4 pg High 27.0-31.2 [facility] ([place]) Comment on above: Performed By: #### B MP, GFR #### [place] [address] #### CBC, ADIFF, ANEU #### [address] [address] MCHC mass conc (RBC) 33.8 G/dL Normal 31.8-35.4 [facility] ([place]) Comment on above: Performed By: #### B MP, GFR #### [place] [address] #### CBC, ADIFF, ANEU #### [address] [address] MCV Entitic volume (RBC) 95.7 fL High 80.0-94.0 [facility] ([place]) Comment on above: Performed By: #### B MP, GFR #### [place] [address] #### CBC, ADIFF, ANEU #### [address] [address] Platelet mean volume Entitic volume (Bld) 9.4 fL Normal 7.4-10.4 [facility] ([place]) Comment on above: Performed By: #### B MP, GFR #### [place] [address] #### CBC, ADIFF, ANEU #### [address] [address] Platelets #/vol (Bld) 158 10 3/mcL Normal 130-400 A [facility] ([place]) Comment on above: Performed By: #### B MP, GFR #### [place] [address] #### CBC, ADIFF, ANEU #### [address] [address] RBC #/vol (Bld) 3.56 10 6/mcL Low 4.04-6.13 [facility] ([place]) Comment on above: Performed By: #### B MP, GFR #### [place] [address] #### CBC, ADIFF, ANEU #### [address] [address] WBC #/vol (Bld) 13.50 10 3/mcL High 4.60-10.80 [facility] ([place]) Comment on above: Performed By: #### B MP, GFR #### [place] [address] #### CBC, ADIFF, ANEU #### [address] [address] XR KNEE 1 OR 2 VIEWS RIGHTon 04-23-2018 XR KNEE 1 OR 2 VIEWS RIGHT ORIGINAL XR KNEE 1 OR 2 VIEWS RIGHT CLINICAL STATEMENT: Status Post Arthroplasty. COMPARISON: None FINDINGS: Skin marlo overlie the operative site. There is some soft tissue air and fluid from the surgery. The prosthetic components are well seated and there is no adjacent fracture identified. IMPRESSION: Satisfactory postoperative appearance. Interpreted By: Tashi Pires MD Preliminary Report By: Tashi Pires MD Electronically Signed By: Tashi Pirse MD Dictated Date: 04/23/2018 2:37:58 PM Prelim Date: 04/23/2018 2:37:58 PM Sign Date: 04/23/2018 2:38:21 PM Normal [facility] ([place]) CT KNEE W/O CONTRAST RIGHTon 04-09-2018 CT KNEE W/O CONTRAST RIGHT ORIGINAL \H\CT of the right knee without contrast Technique:\N\ This exam was performed according to our departmental dose-optimization program which includes automated exposure control, adjustment of the mA and/or kVp according to patient size and/or use of iterative reconstruction technique where applicable. Axial images are obtained through the knee. A few axial images are also acquired through the right hip and the right ankle. COMPARISON: None Indication: Pain, primary unilateral osteoarthritis, varus deformity, \H\Results:\N\ KNEE: Medial compartment: There is severe medial compartment narrowing with marginal spurring, subchondral sclerosis, vacuum phenomena and and meniscal calcification. There is nearly aotj-sj-vxcc appearance. Lateral compartment: There is moderate marginal spurring and mild compartment narrowing. Subchondral sclerosis. Moderate meniscal calcification. Patellofemoral compartment: There is a large marginal osteophyte formation and severe narrowing of the lateral patellofemoral joint space with subchondral sclerosis and cystic changes. There is evidence of previous surgery to the patella with anterior metallic sutures. There is also moderate fragmented ossification within the patellar tendon which is moderately thickened. Other: There is small joint effusion. There is a very small medial popliteal cyst. There is probably fluid collection in the pes anserinus bursa.. Hip: Limited axial images through the hip joint show mild to moderate degenerative arthritis. Ankle: Limited axial images of the ankle are also obtained. These show mild degenerative changes at the ankle. \H\\N\\H\IMPRESSION:\ N\ 1. There is tricompartment degenerative osteoarthritis and is most severe in the medial femorotibial and lateral patellofemoral compartments as described above. 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 Remote surgery to the patella and ossification within a thickened patellar tendon, correlate with previous history of trauma/surgery. Small joint effusion, small medial popliteal cyst and fluid collection in the pes anserinus bursa. 2. Mild hip osteoarthritis. Interpreted By: Kenrick Back MD Preliminary Report By: Kenrick Back MD Electronically Signed By: Kenrick Back MD Dictated Date: 04/09/2018 9:32:45 PM Prelim Date: 04/09/2018 9:32:45 PM Sign Date: 04/09/2018 9:43:14 PM Normal [facility] ([place]) Vital Signs Date Time Vital Sign Value Performing Clinician Rasheeda sandhu 09-09-2024 17:33-0400 Body temperature 97.59 [degF] Guadalupe Praisler-Wood MENTAL TELEPATHIST.DRUPAL ARCHITECT Work Phone: [facility] 09-09-2024 17:33-0400 Body weight 105 kg Guadalupe Praisler-Wood MENTAL TELEPATHIST.DRUPAL ARCHITECT Work Phone: [facility] 09-09-2024 17:33-0400 Diastolic blood pressure 82 mm[Hg] Guadalupe Praisler-Wood MENTAL TELEPATHIST.DRUPAL ARCHITECT Work Phone: [facility] 09-09-2024 17:33-0400 Heart rate 70 /min Guadalupe Praisler-Wood MENTAL TELEPATHIST.DRUPAL ARCHITECT Work Phone: [facility] 09-09-2024 17:33-0400 Respiratory rate 18 /min Guadalupe Praisler-Wood MENTAL TELEPATHIST.DRUPAL ARCHITECT Work Phone: [facility] 09-09-2024 17:33-0400 SaO2% (BldA) [Mass fraction] 99 % Guadalupe Praisler-Wood MENTAL TELEPATHIST.DRUPAL ARCHITECT Work Phone: [facility] 09-09-2024 17:33-0400 Systolic blood pressure 161 mm[Hg] Guadalupe [place] MENTAL TELEPATHIST.DRUPAL ARCHITECT Work Phone: [facility] 06-20-2023 10:42-0400 Body temperature 98.8 [degF] Phillip Soriano MD Work Phone: [facility] 06-20-2023 10:42-0400 Body weight 103.3 kg Phillip Soriano MD Work Phone: [facility] 06-20-2023 10:42-0400 Diastolic blood pressure 74 mm[Hg] Phillip Soriano MD Work Phone: [facility] 06-20-2023 10:42-0400 Heart rate 62 /min Phillip Soriano MD Work Phone: [facility] 06-20-2023 10:42-0400 SaO2% (BldA) [Mass fraction] 98 % Phillip Soriano MD Work Phone: [facility] 06-20-2023 10:42-0400 Systolic blood pressure 153 mm[Hg] Phillip Soriano MD Work Phone: [facility] 04-25-2023 16:23-0500 Body temperature 97 [degF] Stacy Sandoval MENTAL TELEPATHIST.DRUPAL ARCHITECT Work Phone: [facility] 04-25-2023 16:23-0500 Body weight 104.15 kg Stacy Sandoval MENTAL TELEPATHIST.DRUPAL ARCHITECT Work Phone: [facility] 04-25-2023 16:23-0500 Diastolic blood pressure 78 mm[Hg] Stacy Sandoval MENTAL TELEPATHIST.DRUPAL ARCHITECT Work Phone: [facility] 04-25-2023 16:23-0500 Heart rate 60 /min Stacy Sandoval MENTAL TELEPATHIST.DRUPAL ARCHITECT Work Phone: [facility] 04-25-2023 16:23-0500 Respiratory rate 16 /min Stacy Sandoval MENTAL TELEPATHIST.DRUPAL ARCHITECT Work Phone: [facility] 04-25-2023 16:23-0500 SaO2% (BldA) [Mass fraction] 98 % Stacy Sandoval MENTAL TELEPATHIST.DRUPAL ARCHITECT Work Phone: [facility] 04-25-2023 16:23-0500 Systolic blood pressure 132 mm[Hg] Stacy Sandoval MENTAL TELEPATHIST.DRUPAL ARCHITECT Work Phone: [facility] 09-12-2021 15:37-0400 Body temperature 98.71 [degF] Guadalupe Naranjo MENTAL TELEPATHIST.DRUPAL ARCHITECT Work Phone: [facility] 09-12-2021 15:37-0400 Body weight 103.78 kg Guadalupe Naranjo MENTAL TELEPATHIST.DRUPAL ARCHITECT Work Phone: [facility] 09-12-2021 15:37-0400 Diastolic blood pressure 68 mm[Hg] Guadalupe Nazarioler-Yayo MENTAL TELEPATHIST.DRUPAL ARCHITECT Work Phone: [facility] 09-12-2021 15:37-0400 Heart rate 59 /min Guadalupe Nazarioler-Wood MENTAL TELEPATHIST.DRUPAL ARCHITECT Work Phone: [facility] 09-12-2021 15:37-0400 Respiratory rate 21 /min Guadalupe Ruiz-Yayo MENTAL TELEPATHIST.DRUPAL ARCHITECT Work Phone: [facility] 09-12-2021 15:37-0400 SaO2% (BldA) [Mass fraction] 98 % Guadalupe Ruiz-Yayo MENTAL TELEPATHIST.DRUPAL ARCHITECT Work Phone: [facility] 09-12-2021 15:37-0400 Systolic blood pressure 138 mm[Hg] Guadalupe Nazarioler-Yayo MENTAL TELEPATHIST.DRUPAL ARCHITECT Work Phone: [facility] Encounters Encounter Date Encounter Type Care Provider Facility Start: 09-09-2024 End: 09-09-2024 Subsequent hospital visit by physician Xr [facility] Work Phone: Radiology Comment on above: Rib injury [S29.9XXA ] Start: 09-09-2024 End: 09-09-2024 Patient encounter procedure Guadalupe Ruiz-Yayo MENTAL TELEPATHIST.DRUPAL ARCHITECT Work Phone: [facility] Comment on above: Rib injury (Primary Dx); Injury of left shoulder, initial encounter; Fall, initial encounter; Closed displaced fracture of acromial end of left clavicle, initial encounter; Contusion of left shoulder, initial encounter; Opacity of lung on imaging study Start: 09-09-2024 End: 09-09-2024 ambulatory GUADALUPE NARANJO Facility:[facility] Start: 01-01-2024 End: 01-01-2024 ambulatory [facility] Facility:[facility] Start: 12-25-2023 End: 12-25-2023 ambulatory [facility] Facility:[facility] Start: 12-18-2023 End: 12-18-2023 ambulatory Ramonita Ponce Facility:[facility] Start: 09-23-2023 End: 09-23-2023 Emergency department patient visit [facility] Facility:[facility] Start: 06-20-2023 End: 06-20-2023 Patient encounter procedure Phillip Soriano MD Work Phone: Radiation Oncology Comment on above: Prostate cancer (HCC ) (Primary Dx) Start: 04-25-2023 End: 04-25-2023 Patient encounter procedure Stacy Sandoval MENTAL TELEPATHIST.DRUPAL ARCHITECT Work Phone: [facility] Comment on above: Laceration of left t humb without foreign body without damage to nail, initial encounter (Primary Dx) Start: 09-13-2021 Telephone encounter Mayo hale MENTAL TELEPATHIST.DRUPAL ARCHITECT Work Phone: [facility] Comment on above: Results Start: 09-12-2021 End: 09-12-2021 Subsequent hospital visit by physician Xr [facility] Work Phone: Radiology Comment on above: Elbow swelling, righ t [M25.421] Start: 09-12-2021 End: 09-12-2021 Patient encounter procedure Guadalupe Naranjo MENTAL TELEPATHIST.DRUPAL ARCHITECT Work Phone: [facility] Comment on above: Elbow swelling, righ t (Primary Dx) Start: 11-19-2020 End: 11-19-2020 Subsequent hospital visit by physician Xr [facility] Work Phone: Radiology Comment on above: Cough [R05] Start: 03-22-2020 End: 03-22-2020 Subsequent hospital visit by physician Xr [facility] Work Phone: Radiology Comment on above: Left foot infection [L08.9] Start: 04-23-2018 End: 04-24-2018 Patient encounter procedure YARITZA BRYANT Facility:[facility] Start: 04-08-2018 End: 04-09-2018 Patient encounter procedure YARITZA BRYANT Facility:[facility] Procedures Date Procedure Procedure Detail Performing Clinician Start: 09-09-2024 Radex ribs uni w/posteroant ch minimum 3 views Guadalupe Naranjo MENTAL TELEPATHIST.DRUPAL ARCHITECT Work Phone: Start: 09-12-2021 Radex elbow complete minimum 3 views Guadalupe Naranjo APRN.DRUPAL ARCHITECT Work Phone: Start: 11-19-2020 Radiologic exam ches t 2 views Jan Thomas MD Work Phone: Start: 03-22-2020 Radex foot complete minimum 3 views Chio Estes PA-C Work Phone: Plan of Treatment Date Care Activity Detail Author Start: 03-22-2030 Urine microalbumin profile DTaP,Tdap,Td Vaccine (3 - Td or Tdap) [facility] Start: 10-27-2024 Influenza vaccination Influenza Vacc ine (#1) [facility] Start: 05-14-2024 Covid-19 Vaccine ( season) Covid-19 Vaccine () [facility] Start: 02-27-2024 Advance Directive Discussion Advance Directive Discussion [facility] Start: 02-27-2024 Medicare Advantage Annual Wellness Visit Medicare Advantage Annual Wellness Visit [facility] Start: 10-28-2023 Covid-19 Vaccine ( season) Covid-19 Vaccine ( season) [facility] Start: 10-28-2023 Influenza vaccination Influenza Vacc ine (#1) [facility] Start: 02-28-2023 Covid-19 Vaccine ( season) Covid-19 Vaccine ( season) [facility] Start: 02-26-2023 Advance Directive Discussion Advance Directive Discussion [facility] Start: 02-26-2023 Behavioral Health Screening Behavioral Health Screening [facility] Start: 02-26-2023 Depression Assessment Depression Ass essment [facility] Start: 10-27-2021 Influenza vaccination INFLUENZA (#1) [facility] Start: 09-12-2021 End: 11-12-2021 CBC W Auto Differential panel - Blood [place] Work Phone: Comment on above: Expected: 09/12/2021 , Expires: 11/12/2021 Start: 03-02-2021 COVID-19 VACCINE (3 - Booster for Eh series) COVID-19 VACCINE (3 - Booster for Eh series) [facility] Start: 02-26-2021 ADVANCE DIRECTIVE DISCUSSION ADVANCE DIRECTIVE DISCUSSION [facility] Start: 05-28-2020 COVID-19 VACCINE (2 - Eh risk series) COVID-19 VACCINE (2 - Eh risk series) [facility] Start: 03-23-2020 Urine microalbumin profile DTAP,TDAP,TD (1 - Tdap) [facility] Start: 2005 RSV Vaccine (1 - 1-d ose 60+ series) RSV Vaccine (1 - 1-dose 60+ series) [facility] Start: 1990 DIABETES SCREEN [facility] Start: 1990 Diabetes Screening Diabetes Screenin g [facility] Start: 1964 SHINGRIX VACCINE (1 of 2) SHINGRIX VACCINE (1 of 2) [facility] Start: 06-29-1963 ANNUAL PCP TEAM REIMBURSEMENT COORDINATOR AFBIAN DISEASE VISIT ANNUAL PCP TEAM CHRONIC DISEASE VISIT [facility] Start: 06-29-1963 Anxiety Screening Anxiety Screening [facility] Start: 06-29-1963 BP CONTROLLED (<130/80) BP CON TROLLED (<130/80) [facility] Start: 06-29-1963 Depression Screening Depression Scre ening [facility] Start: 06-29-1963 HEPATITIS C SCREENING HEPATITIS C [facility] Start: 06-29-1963 Hepatitis C screening Hepatitis C [facility] Start: 1957 Adult depression screening assessment DEPRESSION SCREENING [facility] Start: 06-29-1951 PNEUMOCOCCAL: 65+ (1 - PCV) PNEUMOCOCCAL: 65+ (1 - PCV) [facility] CT Guidance for radiation treatment of Unspecified body region CT SIM PLANNING RADIATION ONCOLOGY Radiology Routine Prostate cancer (HCC) Ordered: 06/20/2023 [place] Work Phone: Comment on above: Ordered: 06/20/2023 Immunizations Immunization Date Immunization Notes Care Provider Ed mcnair 11-15-2023 influenza virus vaccine, unspecified formulation Guadalupe Naranjo APRN.COTY Work Phone: [facility] 11-21-2022 influenza virus vaccine, unspecified formulation [facility] [place] Work Phone: [facility] 03-22-2020 tetanus and diphther ia toxoids, adsorbed, preservative free, for adult use (5 Lf of tetanus toxoid and 2 Lf of diphtheria toxoid) Guadalupe Naranjo APRN.[facility] Work Phone: [facility] Work Phone: Payers Date Payer Category Payer Unknown [id number] 2023 Self-pay 2023 Unknown [id number] 28 2018 Private Health Insurance [facility] [employer] [id number] 2018-Present [phone] [address] [place] [address] O [id number] 2018 Unknown [id number] 2015 Medicare (Managed Care) [employer] Doll [employer] HMO [id number] 2015 Unknown ANTHEM BLUE CROS S AND BLUE SHIELD ANTHEM MEDIBLUE O [id number] 2015-Present [phone] [address] [id number] 2015 Unknown ANTHEM BLUE CROS S AND BLUE SHIELD ANTHEM MEDICARE ADVANTAGE O [id number] 2015-Present [phone] [address] [place] [id number] O [id number] 2015 Medicare [id number] 1945 Unknown [id number] 1945 Unknown [id number] 1945 Unknown [id number] Unknown [id number] Unknown [id number] Unknown [id number] Unknown [id number] Unknown [id number] Unknown [id number] Unknown [id number] Unknown [id number] Social History Date Type Detail Facility Start: 03-08-2017 End: 04-25-2023 Tobacco smoking status DEIS Never smoked tobacco [facility] Start: 03-08-2017 End: 04-25-2023 Tobacco use and exposure Smokeless tobacco non-user [facility] Start: 09-12-2021 End: 09-09-2024 Alcohol intake Ex-drinker (finding) [facility] Start: 1945 Sex Assigned At Not on file [facility] Start: 02-21-2020 End: 09-12-2021 Exposure to SARS-CoV-2 (event) Not sure [facility] Work Phone: Start: 04-25-2023 End: 06-20-2023 History of Social function [facility] Start: 04-25-2023 End: 06-20-2023 Tobacco use panel [facility] National Score (1-100), lower number is lower risk Not on file [facility] Clinical Notes 03-22-2020 to 09-09-2024 Patient InstructionsGuadalupe Naranjo APRN.DRUPAL ARCHITECT - 09/09/2024 7:39 PM EDTGKaterin cohen RT(Georgie) - 09/09/2024 6:00 PM Phillip Leiva MD - 06/20/2023 10:40 AM EDTPatient Instructions Note Date & Type Note Facility 09-09-2024 Instructions Guadalupe Naranjo APRN.DRUPAL ARCHITECT - 09/09/2024 7:42 PM EDT 1. Rib injury (S29.9XXA) - X-ray reveals deformities of multiple left posterior ribs, particularly the 4th, 5th, and 6th, which are not definitively changed from the study of 11/19/20. A left posterior 7th rib deformity is not seen with certainty on the previous study. An anterior left 7th lower rib deformity is not definitively present on previous and may be acute. - No evidence of pneumothorax; some patchy opacity at the left lung base. - Prescribed doxycycline for the opacity in the left lung. 2. Injury of left shoulder, initial encounter (S49.92XA) 3. Closed displaced fracture of acromial end of left clavicle, initial encounter (S42.032A) 4. Contusion of left shoulder, initial encounter (S40.012A) - X-ray shows a fracture of the left distal clavicle with the possibility of some comminuted fractures adjacent to the distal clavicle. No dislocation of the shoulder; no fractures seen of the scapula. - Advised patient may wear a sling on his left arm for comfort. - Referral to orthopedics provided; follow-up with [facility] scheduled for tomorrow. - A copy of the x-ray disc and a copy of the orthopedic referral will be left at the desk for him tomorrow. 5. Fall, initial encounter (W19.XXXA) - Fall likely due to lack of coordination from mexiletine, which has been discontinued. - Last tetanus vaccination was on Sasha 25th, 2021; no update needed. 6. Opacity of lung on imaging study - ICD9: 793.19, ICD10: R91.8 - DOXYCYCLINE HYCLATE 100 MG CAPSULE - Start doxycycline antibiotic as prescribed for the cloudy area seen at the bottom of your left lung. - Chest x-ray showed no collapsed lung but did show a cloudy spot at the base of your left lung. - Rib x-rays revealed old changes in several left ribs and a possible new small break in the front of your left 7th rib. - Shoulder x-ray showed a break near the shoulder end of your left collarbone; your shoulder joint is in place and there are no breaks in your upper arm bone or shoulder blade. - Wear a sling on your left arm for comfort as needed. - Follow up with [facility] as soon as possible; a copy of your x-rays and the orthopedic referral is available at the assistant front desk manager. documented in this encounter [facility] 09-09-2024 Note HNO ID: [id number] Author: GUADALUPE NARANJO APRN.DRUPAL ARCHITECT Service: ? Author Type: Nurse Practitioner Type: Progress Notes Filed: 09/09/2024 19:47 Note Text: [facility] Will Alma Barrow is a 79 year old male. Patient presents with: Fall: X 1 wk ago, fell on left side and no has pain in Left shoulder area radiating into shoulder blade Pt is on blood thinners, has bruising, laceration on L elbow Fall Left Shoulder Pain: - Fell one week ago, landing on left shoulder and elbow; no head trauma. - Fall attributed to loss of balance, possibly exacerbated by recent medication change to mexiletine. - Reports pain in the scapular and posterior rib cage area. - No anterior chest impact during the fall. - Denies dyspnea, cough, or fever. - Last tetanus vaccination was on 03/22/2020. Atrial Fibrillation: - History of atrial fibrillation with recent episodes of tachycardia up to 200 bpm. - Underwent Zio patch monitoring. - Recently started on mexiletine, which may have contributed to lack of coordination leading to the fall. - Discontinued mexiletine last Sunday. Parkinson's Disease: - History of Parkinson's disease. - Maintains good upper extremity strength. - Remains active as a fox. - Reports feeling a little bit more depressed over the past week, possibly due to pain and inability to perform usual activities. Review of Systems Constitutional: (-) fever Respiratory: (-) shortness of breath, (-) cough Musculoskeletal: (+) left posterior shoulder pain Skin: (+) bruising Psychiatric: (+) depressed mood Objective BP 161/82 Pulse 70 Temp 36.4 ?C (97.6 ?F) Resp 18 Wt 105 kg (231 lb 7.7 oz) SpO2 99% PAST MEDICAL HISTORY Diagnosis Date A-fib (HCC) Abdominal aortic aneurysm (AAA) and chest Atrial fibrillation (HCC) Larsen esophagus CAD (coronary artery disease) Essential hypertension GERD (gastroesophageal reflux disease) Mixed hyperlipidemia STACIE (obstructive sleep apnea) Parkinson's disease (HCC) Prostate cancer (HCC) Rheumatoid arthritis (HCC) PAST SURGICAL HISTORY Procedure Laterality Date COLONOSCOPY SCREENING 2018 IR RT HEART CATH KNEE SURGERY HX Bilateral LAMINECTOMY,LUMBAR REMV CATARACT EXTRACAP,INSERT LENS Bilateral 2022 REPAIR EPIGASTRIC HERNIA,REDUC SHOULDER SURGERY HX Right 2010 ALLERGIES Patient has no known allergies. MEDICATIONS spironolactone (ALDACTONE) 25 mg tablet 37.5 mg. dofetilide (TIKOSYN) 500 mcg capsule Take 500 mcg by mouth twice daily. lisinopril 2.5 mg tablet Take 2.5 mg by mouth once daily. atorvastatin (LIPITOR) 80 mg tablet Take 80 mg by mouth once daily. carbidopa-levodopa (SINEMET 25-100) 25-100 mg per tablet Take 1 tablet by mouth three times daily. omeprazole (PRILOSEC) 20 mg capsule Take 20 mg by mouth once daily. SULFASALAZINE ORAL Take by mouth. FOLIC ACID ORAL Take by mouth. HYDROXYCHLOROQUINE SULFATE (HYDROXYCHLOROQUINE ORAL) Take by mouth. TAMSULOSIN HCL (TAMSULOSIN ORAL) Take by mouth. apixaban (ELIQUIS) 5 mg tab tab(s) Take by mouth twice daily. multivitamin with minerals (VISION/OPTIGEN) tablet Take 1 tablet by mouth once daily. cholecalciferol (VITAMIN D3) 2,000 unit tablet Take 2,000 Units by mouth once daily. doxycycline hyclate (VIBRAMYCIN) 100 mg capsule Take 1 capsule by mouth two times a day for 7 days. CARVEDILOL ORAL Take by mouth. (Patient not taking: Reported on 09/09/2024) methotrexate 2.5 mg tablet SA (Patient not taking: Reported on 09/09/2024) mupirocin (BACTROBAN) 2 % ointment Apply 1 application to affected area three times daily. Location: wrist (Patient not taking: Reported on 03/22/2020) FLECAINIDE ACETATE (FLECAINIDE ORAL) Take by mouth. (Patient not taking: Reported on 11/16/2020) LOVASTATIN ORAL Take by mouth. (Patient not taking: Reported on 11/16/2020) METOPROLOL TARTRATE ORAL Take 50 mg by mouth. Patient taking 1/2 tablet twice daily (Patient not taking: Reported on 09/12/2021) hydroCHLOROthiazide (HYDRODIURIL, ESIDRIX) 25 mg tablet Take 25 mg by mouth once daily. (Patient not taking: Reported on 11/16/2020) RANITIDINE HCL ORAL Take by mouth. (Patient not taking: Reported on 11/16/2020) aspirin 81 mg chewable tablet Take 81 mg by mouth once daily. (Patient not taking: Reported on 09/12/2021) ferrous sulfate 325 mg (65 mg iron) tablet Take 325 mg by mouth daily with breakfast. (Patient not taking: Reported on 06/20/2023) fluticasone (FLONASE) 50 mcg/actuation nasal spray Use 2 Sprays in each nostril once daily. Rinse mouth after use. (Patient not taking: Reported on 03/22/2020) cetirizine (ZYRTEC) 10 mg tablet Take 1 tablet by mouth once daily. (Patient not taking: Reported on 03/22/2020) FAMILY HISTORY Problem Relation Age of Onset Uterine Cancer Mother Lymphoma Father other (non hodgkins lymphoma) Brother Social History Tobacco Use Smoking status: Never Smokeless tobacco: Never Substance Use Topics Alc (more content not included)... [facility] 09-09-2024 History of Presen t illness Narrative Images from the original note were not included. [facility] Will Alma Barrow is a 79 year old male. Patient presents with: Fall: X 1 wk ago, fell on left side and no has pain in Left shoulder area radiating into shoulder blade Pt is on blood thinners, has bruising, laceration on L elbow Fall Left Shoulder Pain: - Fell one week ago, landing on left shoulder and elbow; no head trauma. - Fall attributed to loss of balance, possibly exacerbated by recent medication change to mexiletine. - Reports pain in the scapular and posterior rib cage area. - No anterior chest impact during the fall. - Denies dyspnea, cough, or fever. - Last tetanus vaccination was on 03/22/2020. Atrial Fibrillation: - History of atrial fibrillation with recent episodes of tachycardia up to 200 bpm. - Underwent Zio patch monitoring. - Recently started on mexiletine, which may have contributed to lack of coordination leading to the fall. - Discontinued mexiletine last Sunday. Parkinson's Disease: - History of Parkinson's disease. - Maintains good upper extremity strength. - Remains active as a fox. - Reports feeling a little bit more depressed over the past week, possibly due to pain and inability to perform usual activities. Review of Systems Constitutional: (-) fever Respiratory: (-) shortness of breath, (-) cough Musculoskeletal: (+) left posterior shoulder pain Skin: (+) bruising Psychiatric: (+) depressed mood Objective BP 161/82 Pulse 70 Temp 36.4 C (97.6 F) Resp 18 Wt 105 kg (231 lb 7.7 oz) SpO2 99% PAST MEDICAL HISTORY Diagnosis Date A-fib (HCC) Abdominal aortic aneurysm (AAA) and chest Atrial fibrillation (HCC) Larsen esophagus CAD (coronary artery disease) Essential hypertension GERD (gastroesophageal reflux disease) Mixed hyperlipidemia STACIE (obstructive sleep apnea) Parkinson's disease (HCC) Prostate cancer (HCC) Rheumatoid arthritis (HCC) PAST SURGICAL HISTORY Procedure Laterality Date COLONOSCOPY SCREENING 2018 IR RT HEART CATH KNEE SURGERY HX Bilateral LAMINECTOMY,LUMBAR REMV CATARACT EXTRACAP,INSERT LENS Bilateral 2022 REPAIR EPIGASTRIC HERNIA,REDUC SHOULDER SURGERY HX Right 2010 ALLERGIES Patient has no known allergies. MEDICATIONS spironolactone (ALDACTONE) 25 mg tablet 37.5 mg. dofetilide (TIKOSYN) 500 mcg capsule Take 500 mcg by mouth twice daily. lisinopril 2.5 mg tablet Take 2.5 mg by mouth once daily. atorvastatin (LIPITOR) 80 mg tablet Take 80 mg by mouth once daily. carbidopa-levodopa (SINEMET 25-100) 25-100 mg per tablet Take 1 tablet by mouth three times daily. omeprazole (PRILOSEC) 20 mg capsule Take 20 mg by mouth once daily. SULFASALAZINE ORAL Take by mouth. FOLIC ACID ORAL Take by mouth. HYDROXYCHLOROQUINE SULFATE (HYDROXYCHLOROQUINE ORAL) Take by mouth. TAMSULOSIN HCL (TAMSULOSIN ORAL) Take by mouth. apixaban (ELIQUIS) 5 mg tab tab(s) Take by mouth twice daily. multivitamin with minerals (VISION/OPTIGEN) tablet Take 1 tablet by mouth once daily. cholecalciferol (VITAMIN D3) 2,000 unit tablet Take 2,000 Units by mouth once daily. doxycycline hyclate (VIBRAMYCIN) 100 mg capsule Take 1 capsule by mouth two times a day for 7 days. CARVEDILOL ORAL Take by mouth. (Patient not taking: Reported on 09/09/2024) methotrexate 2.5 mg tablet SA (Patient not taking: Reported on 09/09/2024) mupirocin (BACTROBAN) 2 % ointment Apply 1 application to affected area three times daily. Location: wrist (Patient not taking: Reported on 03/22/2020) FLECAINIDE ACETATE (FLECAINIDE ORAL) Take by mouth. (Patient not taking: Reported on 11/16/2020) LOVASTATIN ORAL Take by mouth. (Patient not taking: Reported on 11/16/2020) METOPROLOL TARTRATE ORAL Take 50 mg by mouth. Patient taking 1/2 tablet twice daily (Patient not taking: Reported on 09/12/2021) hydroCHLOROthiazide (HYDRODIURIL, ESIDRIX) 25 mg tablet Take 25 mg by mouth once daily. (Patient not taking: Reported on 11/16/2020) RANITIDINE HCL ORAL Take by mouth. (Patient not taking: Reported on 11/16/2020) aspirin 81 mg chewable tablet Take 81 mg by mouth once daily. (Patient not taking: Reported on 09/12/2021) ferrous sulfate 325 mg (65 mg iron) tablet Take 325 mg by mouth daily with breakfast. (Patient not taking: Reported on 06/20/2023) fluticasone (FLONASE) 50 mcg/actuation nasal spray Use 2 Sprays in each nostril once daily. Rinse mouth after use. (Patient not taking: Reported on 03/22/2020) cetirizine (ZYRTEC) 10 mg tablet Take 1 tablet by mouth once daily. (Patient not taking: Reported on 03/22/2020) FAMILY HISTORY Problem Relation Age of Onset Uterine Cancer Mother Lymphoma Father other (non hodgkins lymphoma) Brother Social History Tobacco Use Smoking status: Never Smokeless tobacco: Never Substance Use Topics Alcohol use: Not Currently Drug use: Not Currently Physical Exam Vitals and nursing note reviewed. Constitutional: General: He is not in acute distress. Appearance: Normal appearance. He is not ill-appearing. Cardiovascular: Rate and Rhythm: Regular rhythm. Heart sounds: Normal heart sounds. Pulmonary: Effort: Pulmonary effort is normal. Breath sounds: Examination of the left-lower field reveals decreased breath sounds. Decreased breath sounds present. No wheezing, rhonchi or rales. Skin: General: Skin is warm and dry. Findings: Bruising, ecchymosis and signs of injury present. Neurological: Mental Status: He is alert. { 1. Rib injury (S29.9XXA) - X-ray reveals deformities of multiple left posterior ribs, particularly the 4th, 5th, and 6th, which are not definitively changed from the study of 11/19/20. A left posterior 7th rib deformity is not seen with certainty on the previous study. An anterior left 7th lower rib deformity is not definitively present on previous and may be acute. - No evidence of pneumothorax; some patchy opacity at the left lung base. - Prescribed doxycycline for the opacity in the left lung. 2. Injury of left shoulder, initial encounter (S49.92XA) 3. Closed displaced fracture of acromial end of left clavicle, initial encounter (S42.032A) 4. Contusion of left shoulder, initial encounter (S40.012A) - X-ray shows a fracture of the left distal clavicle with the possibility of some comminuted fractures adjacent to the distal clavicle. No dislocation of the shoulder; no fractures seen of the scapula. - Advised patient may wear a sling on his left arm for comfort. - Referral to orthopedics provided; follow-up with [facility] scheduled for tomorrow. - A copy of the x-ray disc and a copy of the orthopedic referral will be left at the desk for him tomorrow. 5. Fall, initial encounter (W19.XXXA) - Fall likely due to lack of coordination from mexiletine, which has been discontinued. - Last tetanus vaccination was on March 22, 2020; no update needed. 6. Opacity of lung on imaging study - ICD9: 793.19, ICD10: R91.8 - DOXYCYCLINE HYCLATE 100 MG CAPSULE - Follow-up with your PCP in 3-5 days if symptoms have not improved or sooner if symptoms worsen - Discussed red flags and need for immediate medical evaluation if any occur. - Discussed supportive care treatment with fluids, rest and analgesia. - Discussed expected course of illness Guadalupe Naranjo APRN.DRUPAL ARCHITECT and Recording using [employer] software for draft documentation of the visit was discussed with the patient/authorized tax representative; all questions welcomed and answered. Patient/authorized tax representative agreed to proceed History and Record Review Clinical information obtained from an independent historian. History obtained from or confirmed by: spouse. External record(s) reviewed: prior labs/imaging. Findings from review of prior labs/imaging: xray as noted Disposition The patient was discharged. Procedures documented in this encounter [facility] 09-09-2024 History of Presen t illness Narrative Radiology Service Progress Note PATIENT NAME: Alma Barrow DATE OF SERVICE: September 09, 2024 TIME: 5:57 PM PATIENT IDENTITY VERIFICATION COMPLETED USING TWO (2) IDENTIFIERS: Name and Date of confirmed by patient verbally. FALL SCREENING: Has the patient had 2 falls in the last year or 1 fall with injury or currently using an Ambulatory Assistive Device (Walker, Cane, Wheelchair, Crutches, etc.)? No PATIENT GENDER DATA: Assigned male at PATIENT RELEVANT IMPLANT DATA REVIEWED: Yes PATIENT PRESENTS WITH AN IMPLANTABLE OR ATTACHED LACEWORKER: No RADIOLOGY DEPARTMENT: General X-ray: Exam(s) Completed: Rib X-Ray: Left Upper Extremity X-Ray(s): Shoulder, AP / TRUE AP left PERIPHERAL IV DATA: Not applicable SIGNED BY: RT Lizzeth(R) September 09, 2024 5:57 PM documented in this encounter [facility] 09-09-2024 Note HNO ID: [id number] Author: KATERIN GARCIA RT(R) Service: ? Author Type: Technologist Type: Progress Notes Filed: 09/09/2024 18:14 Note Text: Radiology Service Progress Note PATIENT NAME: Alma Barrow DATE OF SERVICE: September 09, 2024 TIME: 5:57 PM PATIENT IDENTITY VERIFICATION COMPLETED USING TWO (2) IDENTIFIERS: Name and Date of confirmed by patient verbally. FALL SCREENING: Has the patient had 2 falls in the last year or 1 fall with injury or currently using an Ambulatory Assistive Device (Walker, Cane, Wheelchair, Crutches, etc.)? No PATIENT GENDER DATA: Assigned male at PATIENT RELEVANT IMPLANT DATA REVIEWED: Yes PATIENT PRESENTS WITH AN IMPLANTABLE OR ATTACHED LACEWORKER: No RADIOLOGY DEPARTMENT: General X-ray: Exam(s) Completed: Rib X-Ray: Left Upper Extremity X-Ray(s): Shoulder, AP / TRUE AP left PERIPHERAL IV DATA: Not applicable SIGNED BY: RT Lizzeth(Georgie) September 09, 2024 5:57 PM [facility] 12-18-2023 Note [facility] Medical Records Department [address] [place] [address] History Physical Exam 12/18/23 173 MR#: [id number] Acct: [id number] Name: ALMA BARROW Rep #: [id number] : 1945 78 From: Ramonita Ponce MD PCP: [facility] Status[facility] Location: [place] [address] History and Physical Date of Admission: 12/18/23 The patient is examined and there are no changes to the H P noted in my consult note and the ER encounter note. Pt for repair ear laceration and scalp laceration. Informed consent obtained. Assessment Plan Assessment/Plan (1) Complex laceration of right ear: (2) Occipital scalp laceration: PLAN: Plan for repair ear and scalp lacerations 12/18/23 1734 Cosigner Signature (if applicable): CC: Dr. Ramonita Ponce MD; [facility] Signed [facility] 12-18-2023 Note [facility] Medical Records Department [address] [place] [address] Consultation 12/18/231706 MR#: [id number] Acct: [id number] Name: ALMA BARROW Rep #: [id number] : 1945 78 From: Ramonita Ponce MD PCP: [facility] Status:[facility] Location: [place] [address] Consult Date of Consult: 12/18/23 Mr. Lao is a 78-year-old male who fell at his home while working outside. This happened approximately 11 AM. He sustained a laceration of his scalp and right ear. He denied loss of consciousness. Because of his use of Eliquis, he had scans performed in the ER which were unremarkable. On examination, the patient is noted to have a complex laceration of the right ear with a dressing in place that was placed by his . He has a partial degloving of the helix of the ear. He also has a simple laceration of the occiput. His lungs are clear bilaterally. He has regular cardiac rate and rhythm. His lungs are clear bilaterally. There is no evidence of peripheral edema. He is alert and oriented and answers questions appropriately. I reviewed with him and his the potential for tissue loss of the avulsed skin of the ear. In that event, we will do our best to reapproximate the tissue but there may be need for eventual reconstruction. We will notify surgery of the procedure. Reason for Consult Complex laceration right ear Assessment Plan Assessment/Plan (1) Complex laceration of right ear: (2) Occipital scalp laceration: PLAN: Plan For surgical repair of the right ear. 12/18/231953 Cosigner Signature (if applicable): CC: [facility] Signed [facility] 06-20-2023 History of Presen t illness Narrative Images from the original note were not included. Radiation Oncology - Prostate Cancer New Patient/Consult Note PATIENT NAME: Alma Barrow PATIENT REQUESTING PROVIDER: Cyndie Prince MD DIAGNOSIS: 77 year old male with prostate adenocarcinoma, initial PSA 5.87 ng/ml (01/31/2023), biopsy Willis score 4 + 3 = 7 (grade group 3), clinical stage T1c, N0, M0, stage IIC [T1-T2, N0, M0, PSA <20, GG 3] (AJCC 8th ed.) (AJCC 8th ed.), s/p TRUS Random biopsy 03/13/2023. Planned for lupron 07/05/2023. Cancer Staging No matching staging information was found for the patient. HPI: 77 year old male with prostate adenocarcinoma who presents for an opinion regarding the role of radiation therapy in the management of the patient's disease. Final recommendations will be communicated back to the requesting physician by way of the shared medical record, or letter to requesting physician via US mail. Mr. Barrow has amedical history of rheumatoid arthritis, CAD, a-fib, thoracic aortic anurysm, AAA, HTN, HLD, STACIE and Barretts esophagus. On tamsulosin. He was note dto have microscopic hematuria. While being worked up for this he was noted to have elevated PSA. He had prostate biopsy in 02/2023 showing GS 4+3=7 prostate adenocarcinoma. PSMA PET was negative for distant disease. PSA: 05/10/2023: 2.60 ng/ml 01/31/2023: 5.87 ng/ml 11/09/2022: 6.38 ng/ml [facility] (03/13/2023): firm prostate, no nodules palpated. Prostate biopsy on 03/13/2023 revealed: GS 4+3 prostate adenocarcinoma in 4/12 cores (upto 60% cores involved) and GS 3+4 in 1/12 cores Total # of positive biopsy cores: 5 Total # of biopsy cores sampled: 12 Greatest % cancer in any single core: 60% Staging Studies: MRI prostate (01/03/2023): PSMA PET (04/06/2023): Previous Treatment for Prostate Cancer: None Genomic Testing: None The patient reports the following pertinent history: Dysuria: No Incontinence: 1- No pads Hematuria: states microscopic in urine for the last 10 years - AUA Questionnaire (symptoms within the past 1 month) Incomplete Emptyin (less than half the time) Frequency (within 2 hours of previous void): 1 (less than 1 time in 5) Intermittency: 0 (not at all) Urgency (difficulty postponing urination): 0 (not at all) Weak Stream: 0 (not at all) Strainin (not at all) Nocturia: 3x per night - Total AUA Score: 6 Bowel Movement Frequency: 2-3/day Bowel Movement Quality: Normal Blood per Rectum: No Last Colonoscopy: 2019 scheduled for consult 06/21/23 then they will schedule Baseline Erectile Function: 4- Diminished but unsatisfactory for intercourse Sexual Health Inventory (ALANNA) score: 04/22 Androgen Deprivation: Yes to get first shot on June at the [facility] Prior Radiation Therapy, Collagen Vascular Disease, or Inflammatory Bowel Disease: No Any implanted or external electric devices? No Currently on Anticoagulation: Yes History of Hip Replacement: No History of Prior TURP: No No family history of prostate cancer. ALLERGIES No Known Allergies spironolactone (ALDACTONE) 25 mg tablet 37.5 mg. dofetilide (TIKOSYN) 500 mcg capsule Take 500 mcg by mouth twice daily. CARVEDILOL ORAL Take by mouth. atorvastatin (LIPITOR) 80 mg tablet Take 80 mg by mouth once daily. carbidopa-levodopa (SINEMET 25-100) 25-100 mg per tablet Take 1 tablet by mouth three times daily. omeprazole (PRILOSEC) 20 mg capsule Take 20 mg by mouth once daily. methotrexate 2.5 mg tablet SA SULFASALAZINE ORAL Take by mouth. HYDROXYCHLOROQUINE SULFATE (HYDROXYCHLOROQUINE ORAL) Take by mouth. TAMSULOSIN HCL (TAMSULOSIN ORAL) Take by mouth. apixaban (ELIQUIS) 5 mg tab tab(s) Take by mouth twice daily. multivitamin with minerals (VISION/OPTIGEN) tablet Take 1 tablet by mouth once daily. cholecalciferol (VITAMIN D3) 2,000 unit tablet Take 2,000 Units by mouth once daily. lisinopril 2.5 mg tablet Take 2.5 mg by mouth once daily. (Patient not taking: Reported on 09/12/2021 ) mupirocin (BACTROBAN) 2 % ointment Apply 1 application to affected area three times daily. Location: wrist (Patient not taking: Reported on 03/22/2020 ) FOLIC ACID ORAL Take by mouth. (Patient not taking: Reported on 06/20/2023) FLECAINIDE ACETATE (FLECAINIDE ORAL) Take by mouth. (Patient not taking: Reported on 11/16/2020 ) LOVASTATIN ORAL Take by mouth. (Patient not taking: Reported on 11/16/2020 ) METOPROLOL TARTRATE ORAL Take 50 mg by mouth. Patient taking 1/2 tablet twice daily (Patient not taking: Reported on 09/12/2021 ) hydroCHLOROthiazide (HYDRODIURIL, ESIDRIX) 25 mg tablet Take 25 mg by mouth once daily. (Patient not taking: Reported on 11/16/2020 ) RANITIDINE HCL ORAL Take by mouth. (Patient not taking: Reported on 11/16/2020 ) aspirin 81 mg chewable tablet Take 81 mg by mouth once daily. (Patient not taking: Reported on 09/12/2021 ) ferrous sulfate 325 mg (65 mg iron) tablet Take 325 mg by mouth daily with breakfast. (Patient not taking: Reported on 06/20/2023) fluticasone (FLONASE) 50 mcg/actuation nasal spray Use 2 Sprays in each nostril once daily. Rinse mouth after use. (Patient not taking: Reported on 03/22/2020 ) cetirizine (ZYRTEC) 10 mg tablet Take 1 tablet by mouth once daily. (Patient not taking: Reported on 03/22/2020 ) PAST MEDICAL HISTORY Diagnosis Date A-fib (HCC) Abdominal aortic aneurysm (AAA) (HCC) and chest Atrial fibrillation (HCC) Larsen esophagus CAD (coronary artery disease) Essential hypertension GERD (gastroesophageal reflux disease) Mixed hyperlipidemia STACIE (obstructive sleep apnea) Parkinson's disease (HCC) Prostate cancer (HCC) Rheumatoid arthritis (HCC) PAST SURGICAL HISTORY Procedure Laterality Date COLONOSCOPY SCREENING 2018 IR RT HEART CATH KNEE SURGERY HX Bilateral LAMINECTOMY,LUMBAR REMV CATARACT EXTRACAP,INSERT LENS Bilateral 2022 REPAIR EPIGASTRIC HERNIA,REDUC SHOULDER SURGERY HX Right 2010 FAMILY HISTORY Problem Relation Age of Onset Uterine Cancer Mother Lymphoma Father other (non hodgkins lymphoma) Brother Social History Tobacco Use Smoking status: Never Smokeless tobacco: Never Substance Use Topics Alcohol use: Not Currently Drug use: Not Currently 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 Residence: [place] REVIEW OF SYSTEMS: GENERAL: feeling well without fatigue, no recent change in weight HEENT: denies CLOUD, change in hearing or vision, no other ENT complaints NECK: denies swelling or pain in neck RESPIRATORY: no cough, no wheezing or shortness of breath CARDIOVASCULAR: no chest pain, no palpitations GI: normal appetite, tolerating PO well, BMs normal, and no abdominal pain : urination is normal MUSCULOSKELETAL: denies any painful or swollen joints, no muscle aches SKIN: no rash, bruises easily NEURO: no numbness or paresthesias and no weakness of the extremities PHYSICAL EXAM: VS: BP 153/74 Pulse 62 Temp 37.1 C (98.8 F) Wt 103.3 kg (227 lb 11.8 oz) SpO2 98% KARNOFSKY PERFORMANCE STATUS: 100 General Appearance: Alert and oriented. No acute distress. HEENT: NCAT. Sclera anicteric. PERRL. EOMI. Neck: Normal ROM. No palpable cervical or supraclavicular adenopathy. Chest: No respiratory distress. Lungs clear to auscultation bilaterally. Heart: Regular rate and rhythm. Abdomen: Soft. Nontender. Nondistended. Musculoskeletal: No edema. Normal ROM in extremities. No bone or spine tenderness. Neuro: Speech fluent. Gait normal. No focal deficits. Skin: No rashes noted Lymphatics: No palpable lymphadenopathy. GENITOURINARY: Deferred exam RECTAL: Deferred exam, [facility] (03/13/2023): firm prostate, no nodules palpated. RADIOLOGY/LABORATORY DATA: see HPI Prostate biopsy 03/13/2023: ASSESSMENT/PLAN: Prostate cancer (C61), 2019 NCCN Risk Group: Unfavorable Intermediate Risk Group Clinical State: Localized Cancer - New Diagnosis ACTIVE PROBLEM LIST Stacie (Obstructive Sleep Apnea) Rheumatoid Arthritis Involving Multiple Sites With Positive Rheumatoid Factor (Hcc) Chronic Atrial Fibrillation (Hcc) Anemia Gerd Without Esophagitis Hypertension, Essential The treatment options for prostate cancer including radical prostatectomy, brachytherapy, external beam radiation, and androgen deprivation therapy were reviewed with the patient. Mr. Barrow had met with [facility]. He and his expressed interest to proceed with SBRT (5 fractions). 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 He wishes to get treatment Dec-Jan. At [facility] they had talked about getting lupron injection while waiting for definitive treatment and he is getting lupron injection 07/05/2023. So he desires to proceed with the plan outlined below. EXTERNAL BEAM RADIATION MANAGEMENT: Mr. Barrow has decided to undergo external beam radiation, and understands the potential risks and benefits of this procedure. He prefers SBRT. Will plan on 4000 cGy in 5 fractions. Informed consent was obtained after discussion of the risks/benefits and logistics. ANDROGEN DEPRIVATION THERAPY: Mr. Barrow has decided to undergo androgen deprivation therapy, and understands the potential risks and benefits of this procedure. Plan based on discussion with [facility] physicians, gets it with the [facility]. 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 We will work with the patient and to get fiducials and spaceOAR (spacer Yogi if possible) placed either with the urologist at [facility] or with Dr. Bocanegra locally. We will need MRI prostate within a week (3-7 days) then. This can be done at [place]. We will also work on CT simulation alongside to start RT within a week or two from simulation. -I will discuss with the patient's Loss Prevention Guard on methotrexate. As per chart review he is only on 2.5 mg MTX. We will confirm with Rheumatology on the dose as well before making final recommendations. -Abdominal aortic aneurysm: he follows up closely with [facility] surgeon. Patient to let the team know about radiation treatment. SBRT treatment is focal treatment to prostate and SV, and so I do not expect high doses in the region of the aneurysm which is clearly above the prostate/SV level. But patient planning to update the surgeon. -Colonoscopy consult is tomorrow, 06/21/2023. Last colonoscopy 2018. Signed by: Phillip Soriano MD Cc: Radha Melendez MD ([facility]) Cyndie Prince MD ([facility]) TOM Tavarez ([facility]) Teresa Levy NP ([facility]) documented in this encounter [facility] 04-25-2023 Procedure note ED PROCEDURE NOTE: LACERATION REPAIR The risks, benefits, alternatives, and personnel discussed with patient or tax representative who consents to the procedure. The laceration was 0.5 cm long. UNIVERSAL PROTOCOL / SAFETY CHECKLIST: Procedure to be performed: suture repair. Sign in Communication: Completed. Time Out: Team Confirms the Correct Patient, Correct Procedure, Correct Site and Site Marking, Correct Position (if applicable). Time: 1650. Affirmation of Time Out: YES. Sign Out Discussion: Completed. Anesthesia was obtained by local infiltration with Lidocaine 1%. The laceration was cleaned with wound cleaning solution. The area was prepped and draped in the usual sterile fashion. The wound was explored and no foreign body was noted. The site was then repaired with 1 4-0 prolene sutures with good approximation. A dressing was placed over the site. The patient tolerated the procedure well. TEACHING PROVIDER (Physician/PA/MENTAL TELEPATHIST) NOTE OF PERSONAL INVOLVEMENT IN CARE: I have personally seen and examined the patient and performed the medical decision-making components. I have reviewed the Advanced Practice Registered Nurse (MENTAL TELEPATHIST) Student's documentation and verified the findings in the note as written. Any additions or changes are noted in bold/italics. Signature: Stacy Sandoval Date: 04/25/2023 Time: 7:48 PM Jackie Haro documented in this encounter [facility] 04-25-2023 History of Presen t illness Narrative This note was created using [employer]. Subjective Alma Barrow is a 77 year old male. 77 year old male with PMH of atrial fibrillation on eliquis and RA presents today with acute onset left hand laceration. He was cutting zip ties with a knife and it slipped and stabbed his hand. This happened about an hour and a half ago. His cleaned it with bactine at home before bringing him in today. Pertinent positives include hand laceration with bleeding. Pertinent negatives include changes in sensation of hand, decreased ROM, decreased hand strength, dizziness and lightheadedness. He his right hand dominant. Last tetanus February 2020. The history is provided by the patient. Laceration The incident occurred 1 to 3 hours ago. The laceration is located on the Left hand. Size: 0.5cm. The laceration mechanism was a dirty knife. The pain is at a severity of 0/10. The patient is experiencing no pain. He reports no foreign bodies present. His tetanus status is UTD. PAST MEDICAL HISTORY Diagnosis Date Atrial fibrillation (HCC) GERD (gastroesophageal reflux disease) Parkinson's disease (HCC) Rheumatoid arthritis (HCC) No past surgical history on file. ALLERGIES Patient has no known allergies. MEDICATIONS dofetilide (TIKOSYN) 500 mcg capsule Take 500 mcg by mouth twice daily. CARVEDILOL ORAL Take by mouth. atorvastatin (LIPITOR) 80 mg tablet Take 80 mg by mouth once daily. carbidopa-levodopa (SINEMET 25-100) 25-100 mg per tablet Take 1 tablet by mouth three times daily. omeprazole (PRILOSEC) 20 mg capsule Take 20 mg by mouth once daily. SULFASALAZINE ORAL Take by mouth. TAMSULOSIN HCL (TAMSULOSIN ORAL) Take by mouth. apixaban (ELIQUIS) 5 mg tab tab(s) Take by mouth twice daily. multivitamin with minerals (VISION/OPTIGEN) tablet Take 1 tablet by mouth once daily. cholecalciferol (VITAMIN D3) 2,000 unit tablet Take 2,000 Units by mouth once daily. ferrous sulfate 325 mg (65 mg iron) tablet Take 325 mg by mouth daily with breakfast. doxycycline monohydrate 100 mg tablet Take 1 tablet by mouth two times a day for 7 days. lisinopril 2.5 mg tablet Take 2.5 mg by mouth once daily. (Patient not taking: Reported on 09/12/2021 ) methotrexate 2.5 mg tablet SA mupirocin (BACTROBAN) 2 % ointment Apply 1 application to affected area three times daily. Location: wrist (Patient not taking: Reported on 03/22/2020 ) FOLIC ACID ORAL Take by mouth. FLECAINIDE ACETATE (FLECAINIDE ORAL) Take by mouth. (Patient not taking: Reported on 11/16/2020 ) HYDROXYCHLOROQUINE SULFATE (HYDROXYCHLOROQUINE ORAL) Take by mouth. LOVASTATIN ORAL Take by mouth. (Patient not taking: Reported on 11/16/2020 ) METOPROLOL TARTRATE ORAL Take 50 mg by mouth. Patient taking 1/2 tablet twice daily (Patient not taking: Reported on 09/12/2021 ) hydroCHLOROthiazide (HYDRODIURIL, ESIDRIX) 25 mg tablet Take 25 mg by mouth once daily. (Patient not taking: Reported on 11/16/2020 ) RANITIDINE HCL ORAL Take by mouth. (Patient not taking: Reported on 11/16/2020 ) aspirin 81 mg chewable tablet Take 81 mg by mouth once daily. (Patient not taking: Reported on 09/12/2021 ) fluticasone (FLONASE) 50 mcg/actuation nasal spray Use 2 Sprays in each nostril once daily. Rinse mouth after use. (Patient not taking: Reported on 03/22/2020 ) cetirizine (ZYRTEC) 10 mg tablet Take 1 tablet by mouth once daily. (Patient not taking: Reported on 03/22/2020 ) No family history on file. Social History Tobacco Use Smoking status: Never Smokeless tobacco: Never Substance Use Topics Alcohol use: Not Currently Review of Systems Skin: Positive for wound. Negative for color change, pallor and rash. Neurological: Negative for dizziness, syncope, weakness, light-headedness and numbness. Objective BP 132/78 Pulse 60 Temp 36.1 C (97 F) (Tympanic) Resp 16 Wt 104.1 kg (229 lb 9.6 oz) SpO2 98% Physical Exam Vitals reviewed. Constitutional: General: He is awake. He is not in acute distress. Appearance: Normal appearance. He is normal weight. He is not ill-appearing, toxic-appearing or diaphoretic. Cardiovascular: Rate and Rhythm: Normal rate and regular rhythm. Pulses: Normal pulses. Heart sounds: Normal heart sounds, S1 normal and S2 normal. Heart sounds not distant. No murmur heard. No friction rub. No gallop. Pulmonary: Effort: Pulmonary effort is normal. No tachypnea, bradypnea, accessory muscle usage, prolonged expiration or respiratory distress. Breath sounds: No stridor or decreased air movement. Examination of the right-lower field reveals wheezing. Wheezing present. No decreased breath sounds, rhonchi or rales. Comments: Fine expiratory wheeze in right lower lobe. Chest: Chest wall: No tenderness. Musculoskeletal: General: No swelling, tenderness, deformity or signs of injury. Normal range of motion. Left wrist: Normal. No swelling, deformity, effusion, lacerations, tenderness, bony tenderness, snuff box tenderness or crepitus. Normal range of motion. Normal pulse. Right hand: Normal. Left hand: Laceration present. No swelling, deformity, tenderness or bony tenderness. Normal range of motion. Normal strength. Normal sensation. Normal capillary refill. Normal pulse. Comments: 0.5 cm laceration over metacarpal of thumb. Finger opposition intact. ROM and strength of thumb intact. Skin: General: Skin is warm and dry. Capillary Refill: Capillary refill takes less than 2 seconds. Coloration: Skin is not ashen, cyanotic, jaundiced, mottled, pale or sallow. Findings: Laceration present. No abrasion, abscess, acne, bruising, burn, ecchymosis, erythema, signs of injury, lesion, petechiae, rash or wound. Comments: 0.5 cm linear laceration to metacarpal area of thumb. No active bleeding. No drainage. No erythema. Mild edema. No foreign body. Neurological: General: No focal deficit present. Mental Status: He is alert and oriented to person, place, and time. Mental status is at baseline. Sensory: No sensory deficit. Coordination: Coordination normal. Psychiatric: Mood and Affect: Mood normal. Behavior: Behavior normal. Behavior is cooperative. Thought Content: Thought content normal. Judgment: Judgment normal. Assessment and Plan ASSESSMENT/PLAN: 1. Laceration of left thumb without foreign body without damage to nail, initial encounter - ICD9: 883.0, ICD10: S61.012A - He was cutting zip ties with a knife and it slipped and stabbed his hand. 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 - On Eliquis - UTD on tetanus - 0.5 cm laceration to metacarpal area of left thumb. No active bleeding or foreign body. - Vitals stable - Cleaned with Hibiclens - 1 suture placed- see procedure note - antibiotic ointment and bandage applied - Suture removal in 5-7 days - safety antibiotic sent to pharmacy if experiencing signs and symptoms of infection Jackie Haro TEACHING PROVIDER (Physician/PA/MENTAL TELEPATHIST) NOTE OF PERSONAL INVOLVEMENT IN CARE: I have personally seen and examined the patient and performed the medical decision-making components. I have reviewed the Advanced Practice Registered Nurse (MENTAL TELEPATHIST) Student's documentation and verified the findings in the note as written. Any additions or changes are noted in bold/italics. Signature: Stacy Sandoval Date: 04/25/2023 Time: 7:47 PM documented in this encounter [facility] 09-13-2021 Miscellaneous Notes notified of lab results and provider message. reports RBC and hemoglobin have been running low and primary dr is aware. Liana English LPN Left message for patient to return call. Shantelle Yanez No infection suspected, wbc normal. F/u as discussed during visit. RBC and hemaglobin slightly low, no action needed per express care. F/u with pcp. documented in this encounter [facility] 09-12-2021 Instructions Guadalupe Naranjo APRN.CNP - 09/12/2021 4:33 PM EDT ASSESSMENT/PLAN: 1. Elbow swelling, right - ICD9: 719.02, ICD10: M25.421 - suspect olecranon bursitis - XR ELBOW SPECIAL VIEWS AP/LAT/OTHER RIGHT. Radiologist IMPRESSION: Findings most compatible with olecranon bursitis. Replenishment Merchandising Associate: CHADD Transcribe Date/Time: Sep 12 2021 4:28P Dictated by : JASON GALO MD - CBC + DIFF - recommnend SY wrap - follow up with orthopedics. - Follow-up with your PCP in 3-5 days if symptoms have not improved or sooner if symptoms worsen - Discussed red flags and need for immediate medical evaluation if any occur. - Discussed supportive care treatment with fluids, rest and analgesia. - Discussed expected course of illness Guadalupe Naranjo APRN.COTY documented in this encounter [facility] 09-12-2021 History of Presen t illness Narrative Subjective HPI Alma Barrow is a 76 year old male who presents with right elbow swelling for the past 3 weeks. He denies any known injury. He states the elbow is tender if he puts pressure on it. His is concerned because she noticed some redness on the elbow yesterday and this is new. He has history of RA and she would like his white blood cell count checked to be sure he is not developing an infection. He has not had a fever or chills. Review of Systems Constitutional: Negative for chills and fever. Respiratory: Negative. Cardiovascular: Negative. Musculoskeletal: Positive for joint pain. Negative for falls. Skin: Negative for itching and rash. BP 138/68 Pulse (!) 59 Temp 37.1 C (98.7 F) Resp 21 Wt 103.8 kg (228 lb 12.8 oz) SpO2 98% PAST MEDICAL HISTORY Diagnosis Date Atrial fibrillation (HCC) GERD (gastroesophageal reflux disease) Parkinson's disease (HCC) Rheumatoid arthritis (HCC) No past surgical history on file. ALLERGIES Patient has no known allergies. MEDICATIONS dofetilide (TIKOSYN) 500 mcg capsule Take 500 mcg by mouth twice daily. CARVEDILOL ORAL Take by mouth. atorvastatin (LIPITOR) 80 mg tablet Take 80 mg by mouth once daily. carbidopa-levodopa (SINEMET 25-100) 25-100 mg per tablet Take 1 tablet by mouth three times daily. omeprazole (PRILOSEC) 20 mg capsule Take 20 mg by mouth once daily. methotrexate 2.5 mg tablet SA SULFASALAZINE ORAL Take by mouth. FOLIC ACID ORAL Take by mouth. HYDROXYCHLOROQUINE SULFATE (HYDROXYCHLOROQUINE ORAL) Take by mouth. TAMSULOSIN HCL (TAMSULOSIN ORAL) Take by mouth. apixaban (ELIQUIS) 5 mg tab tab(s) Take by mouth twice daily. multivitamin with minerals (VISION/OPTIGEN) tablet Take 1 tablet by mouth once daily. cholecalciferol (VITAMIN D3) 2,000 unit tablet Take 2,000 Units by mouth once daily. ferrous sulfate 325 mg (65 mg iron) tablet Take 325 mg by mouth daily with breakfast. lisinopril 2.5 mg tablet Take 2.5 mg by mouth once daily. mupirocin (BACTROBAN) 2 % ointment Apply 1 application to affected area three times daily. Location: wrist FLECAINIDE ACETATE (FLECAINIDE ORAL) Take by mouth. LOVASTATIN ORAL Take by mouth. METOPROLOL TARTRATE ORAL Take 50 mg by mouth. Patient taking 1/2 tablet twice daily hydroCHLOROthiazide (HYDRODIURIL, ESIDRIX) 25 mg tablet Take 25 mg by mouth once daily. RANITIDINE HCL ORAL Take by mouth. aspirin 81 mg chewable tablet Take 81 mg by mouth once daily. fluticasone (FLONASE) 50 mcg/actuation nasal spray Use 2 Sprays in each nostril once daily. Rinse mouth after use. cetirizine (ZYRTEC) 10 mg tablet Take 1 tablet by mouth once daily. No family history on file. Social History Tobacco Use Smoking status: Never Smoker Smokeless tobacco: Never Used Substance Use Topics Alcohol use: Not Currently Drug use: Not on file Objective Physical Exam Vitals and nursing note reviewed. Constitutional: Appearance: Normal appearance. Cardiovascular: Rate and Rhythm: Bradycardia present. Pulmonary: Effort: Pulmonary effort is normal. Musculoskeletal: General: Swelling (right elbow) present. Right elbow: Swelling and effusion present. No deformity. Normal range of motion. Tenderness present in radial head. Skin: General: Skin is warm and dry. Findings: Erythema present. No rash. Neurological: Mental Status: He is alert. 1. Elbow swelling, right - ICD9: 719.02, ICD10: M25.421 - suspect olecranon bursitis - XR ELBOW SPECIAL VIEWS AP/LAT/OTHER RIGHT. Radiologist IMPRESSION: Findings most compatible with olecranon bursitis. Replenishment Merchandising Associate: CHADD Transcribe Date/Time: Sep 12 2021 4:28P Dictated by : JASON GALO MD - CBC + DIFF- low suspicion for joint infection- requested CBC. - recommnend SY wrap - follow up with orthopedics. - Follow-up with your PCP in 3-5 days if symptoms have not improved or sooner if symptoms worsen - Discussed red flags and need for immediate medical evaluation if any occur. - Discussed supportive care treatment with fluids, rest and analgesia. - Discussed expected course of illness Guadalupe Naranjo APRN.DRUPAL ARCHITECT documented in this encounter [facility] 09-12-2021 History of Presen t illness Narrative Radiology Service Progress Note PATIENT NAME: Alma Barrow DATE OF SERVICE: September 12, 2021 TIME: 4:10 PM PATIENT IDENTITY VERIFICATION COMPLETED USING TWO (2) IDENTIFIERS: Name and Date of confirmed by patient verbally. FALL SCREENING: Has the patient had 2 falls in the last year or 1 fall with injury or currently using an Ambulatory Assistive Device (Walker, Cane, Wheelchair, Crutches, etc.)? No PATIENT GENDER DATA: Male PATIENT RELEVANT IMPLANT DATA REVIEWED: Not Applicable RADIOLOGY DEPARTMENT: General X-ray: Exam(s) Completed: Upper Extremity X-Ray(s): Elbow, right PERIPHERAL IV DATA: Not applicable SIGNED BY: Seven Roman RT(R) September 12, 2021 4:10 PM documented in this encounter [facility] 11-19-2020 History of Presen t illness Narrative Radiology Service Progress Note PATIENT NAME: Alma Barrow DATE OF SERVICE: November 19, 2020 TIME: 8:34 AM PATIENT IDENTITY VERIFICATION COMPLETED USING TWO (2) IDENTIFIERS: Name and Date of confirmed by patient verbally. FALL SCREENING: Has the patient had 2 falls in the last year or 1 fall with injury or currently using an Ambulatory Assistive Device (Walker, Cane, Wheelchair, Crutches, etc.)? No PATIENT GENDER DATA: Male PATIENT RELEVANT IMPLANT DATA REVIEWED: Yes RADIOLOGY DEPARTMENT: General X-ray: Exam(s) Completed: Chest X-Ray PERIPHERAL IV DATA: Not applicable SIGNED BY: Brenda Armstrong RT(R) November 19, 2020 8:34 AM documented in this encounter [facility] 03-22-2020 History of Presen t illness Narrative Radiology Service Progress Note PATIENT NAME: Alma Barrow DATE OF SERVICE: March 22, 2020 TIME: 7:57 AM PATIENT IDENTITY VERIFICATION COMPLETED USING TWO (2) IDENTIFIERS: Name and Date of confirmed by patient verbally. FALL SCREENING: Has the patient had 2 falls in the last year or 1 fall with injury or currently using an Ambulatory Assistive Device (Walker, Cane, Wheelchair, Crutches, etc.)? No PATIENT GENDER DATA: Male PATIENT RELEVANT IMPLANT DATA REVIEWED: Not Applicable RADIOLOGY DEPARTMENT: General X-ray: Exam(s) Completed: Lower Extremity X-Ray(s): Foot, Left and Wt. Bearing: PERIPHERAL IV DATA: Not applicable SIGNED BY: Hector Tan March 22, 2020 7:57 AM documented in this encounter [facility] Evaluation note Diagnosis Elbow swelling, right- Primary [facility] Diagnosis Laceration of left thumb without foreign body without damage to nail, initial encounter- Primary [facility] Diagnosis Prostate cancer (HCC)- Primary Malignant neoplasm of prostate [facility] Diagnosis Elbow swelling, right [facility] Diagnosis Cough [facility] Diagnosis Left foot infection Unspecified local infection of skin and subcutaneous tissue [facility] Diagnosis Rib injury- Primary Sprain of ribs Injury of left shoulder, initial encounter Fall, initial encounter Closed displaced fracture of acromial end of left clavicle, initial encounter Contusion of left shoulder, initial encounter Opacity of lung on imaging study Rib injury Sprain of ribs Injury of left shoulder, initial encounter [facility] Diagnosis Rib injury Sprain of ribs Injury of left shoulder, initial encounter [facility] Diagnostic Procedure Only (Urgent) - Closed Specialty Diagnoses / Procedures Referred By Contac t Referred To Contact XR IMAGING Diagnoses Elbow swelling, right Procedures XR ELBOW SPECIAL VIEWS AP/LAT/OTHER RIGHT RADEX ELBOW COMPLETE MINIMUM 3 VIEWS Guadalupe Naranjo, ZABRINA.DRUPAL ARCHITECT [address] [place] [address] [place] [address] Referral ID Status Reason Start Date Expiration Date V isits Requested Visits Authorized [id number] Closed Auto-Generate d Referral 09/12/2021 10/12/2022 1 1 [facility] for visit Narrative* Diagnostic Procedure Only (Urgent) - Closed Specialty Diagnoses / Procedures Referred By Contac t Referred To Contact XR IMAGING Diagnoses Elbow swelling, right Procedures XR ELBOW SPECIAL VIEWS AP/LAT/OTHER RIGHT RADEX ELBOW COMPLETE MINIMUM 3 VIEWS Guadalupe Naranjo APRN.DRUPAL ARCHITECT [address] [place] [address] [place] [address] Referral ID Status Reason Start Date Expiration Date V isits Requested Visits Authorized [id number] Closed Auto-Generate d Referral 09/12/2021 10/12/2022 1 1 [facility] for visit Narrative* Diagnostic Procedure Only (Routine) - Pending Review Specialty Diagnoses / Procedures Referred By Contac t Referred To Contact XR IMAGING Diagnoses Injury of left shoulder, initial encounter Procedures XR SHOULDER GENERAL 3V OR MORE AP/TRUE AP/OTHER LEFT RADEX SHOULDER COMPLETE MINIMUM 2 VIEWS Guadalupe Naranjo APRN.DRUPAL ARCHITECT [address] [place] [address] Phone: tel: fax: [place] [address] Referral ID Status Reason Start Date Expiration Date Visits Requested Visits Authorized [id number] Pending Review Auto-Generat ed Referral 09/09/2024 10/09/2025 1 1 [facility] Summary Purpose Family History No Family History Records FoundNo Family History Records FoundNo Family History Records Found Advance Directives No Advanced Directives Records FoundNo Advanced Directives Records FoundNo Advanced Directives Records Found Reason for Referral Specialty Diagnoses / Procedures Referred By Contac t Referred To Contact Orthopedics Diagnoses Elbow swelling, right Procedures CONSULT PANEL TO ORTHOPAEDICS OFFICE/OUTPATIENT [facility] MDM 60-74 MINUTES Guadalupe Naranjo APRN.DRUPAL ARCHITECT [address] [place] [address] Referral ID Status Reason Start Date Expiration Date Visits Requested Visits Authorized [id number] Pending Review PCP Requested Referral 09/12/2021 09/12/2022 1 1 Specialty Diagnoses / Procedures Referred By Contac t Referred To Contact XR IMAGING Diagnoses Elbow swelling, right Procedures XR ELBOW SPECIAL VIEWS AP/LAT/OTHER RIGHT RADEX ELBOW COMPLETE MINIMUM 3 VIEWS Guadalupe Naranjo APRN.DRUPAL ARCHITECT [address] [place] [address] Xr Imaging Referral ID Status Reason Start Date Expiration Date V isits Requested Visits Authorized [id number] Closed Auto-Generate d Referral 09/12/2021 10/12/2022 1 1 Specialty Diagnoses / Procedures Referred By Contac t Referred To Contact Diagnoses Prostate cancer (HCC) Procedures CT SIM PLANNING RADIATION ONCOLOGY THER RAD SIMULAJ-AIDED FIELD SETTING COMPLEX Phillip Soriano MD [address] [place] [address] Referral ID Status Reason Start Date Expiration Date Visits Requested Visits Authorized [id number] Pending Review PCP Requested Referral 06/20/2023 09/18/2023 1 1 Additional Source Comments (unrecognized sect ion and content) No Status Records FoundNo Status Records FoundNo Status Records Found INFORMATION SOURCE (unrecogn ized section and content) DATE CREATED AUTHOR 04/25/2018 [facility] ([place]) DATE CREATED AUTHOR AUTHOR'S ORGANIZ ATION 03/09/2024 [facility] DATE CREATED AUTHOR AUTHOR'S ORGANIZ ATION 09/13/2024 [facility] Source Comments (unrecognize d section and content) In the event this informatio n is protected by the Federal Confidentiality of Alcohol and Drug Abuse Patient Records regulations: The Federal rules restrict any use of the information to criminally investigate or prosecute any alcohol or drug abuse patient.[facility] the event this information is protected by the Federal Confidentiality of Alcohol and Drug Abuse Patient Records regulations: The Federal rules restrict any use of the information to criminally investigate or prosecute any alcohol or drug abuse patient.[facility] the event this information is protected by the Federal Confidentiality of Alcohol and Drug Abuse Patient Records regulations: The Federal rules restrict any use of the information to criminally investigate or prosecute any alcohol or drug abuse patient.[facility] the event this information is protected by the Federal Confidentiality of Alcohol and Drug Abuse Patient Records regulations: The Federal rules restrict any use of the information to criminally investigate or prosecute any alcohol or drug abuse patient.[facility] the event this information is protected by the Federal Confidentiality of Alcohol and Drug Abuse Patient Records regulations: The Federal rules restrict any use of the information to criminally investigate or prosecute any alcohol or drug abuse patient.[facility] the event this information is protected by the Federal Confidentiality of Alcohol and Drug Abuse Patient Records regulations: The Federal rules restrict any use of the information to criminally investigate or prosecute any alcohol or drug abuse patient.[facility] the event this information is protected by the Federal Confidentiality of Alcohol and Drug Abuse Patient Records regulations: The Federal rules restrict any use of the information to criminally investigate or prosecute any alcohol or drug abuse patient.[facility] the event this information is protected by the Federal Confidentiality of Alcohol and Drug Abuse Patient Records regulations: The Federal rules restrict any use of the information to criminally investigate or prosecute any alcohol or drug abuse patient.[facility] the event this information is protected by the Federal Confidentiality of Alcohol and Drug Abuse Patient Records regulations: The Federal rules restrict any use of the information to criminally investigate or prosecute any alcohol or drug abuse patient.[facility] Reason for Visit (unrecogniz ed section and content) Reason Comments Acute Visit right elbow swelling x 3 to 4 weeks Reason Comments Results Reason Comments left hand laceration Cut hand on pocket knife x 1 hour Reason Comments Consult Prostate Specialty Diagnoses / Procedures Referred By Contac t Referred To Contact Radiation Oncology / RADIATION ONCOLOGY Diagnoses emergency department rn- prostate- [facility] to schedule- wants to meet Dr Soriano but doesn't want treatment until fall/winter Procedures [place] [address] [place] [address] Phillip Soriano MD [address] [place] [address] Referral ID Status Reason Start Date Expiration Date V isits Requested Visits Authorized [id number] Authorized 05/17/2023 11/13/2023 99 99 Reason Comments Radiology XR Reason Comments Fall X 1 wk ago, fell on left side and no has pain in Left shoulder area radiating into shoulder blade Pt is on blood thinners, has bruising, laceration on L elbow Care Teams (unrecognized sec tion and content) Public Services Librarian Relationship Specialty Start Date End Date Radha Melendez MD [address] [place] [address] PCP - General Internal Medicine 09/12/21 Public Services Librarian Relationship Specialty Start Date End Date Radha Melendez MD [address] [place] [address] PCP - General Internal Medicine 09/12/21 Public Services Librarian Relationship Specialty Start Date End Date Radha Melendez MD [address] [place] [address] PCP - General Internal Medicine 09/12/21 Public Services Librarian Relationship Specialty Start Date End Date Radha Melendez MD [address] [place] [address] PCP - General Internal Medicine 09/12/21 Cyndie Prince MD [address] [place] [id number] Referring Radiology 05/17/23 Public Services Librarian Relationship Specialty Start Date End Date Radha Melendez MD [address] [place] [address] PCP - General Internal Medicine 09/12/21 Public Services Librarian Relationship Specialty Start Date End Date Radha Melendez MD [address] [place] [address] PCP - General Internal Medicine 09/12/21 Cyndie Prince MD [address] [place] [address] Referring Radiology 05/17/23 Teresa Levy MD [address] [place] [id number] Rheumatology 06/29/23 Public Services Librarian Relationship Specialty Start Date End Date Radha Melendez MD [address] [place] [address] PCP - General Internal Medicine 09/12/21 Cyndie Prince MD [address] [place] [id number] Referring Radiology 05/17/23 Teresa Levy MD [address] [place] [id number] Rheumatology 5/3/24 FOR RECORDS PERTAINING TO PATIENTS WHO ARE OR HAVE BEEN ENROLLED IN A CHEMICAL DEPENDENCY/SUBSTANCEABUSE PROGRAM, SOME INFORMATION MAY BE OMITTED. This clinical summary was aggregated from multiple sources. Caution should be exercised in using it in the provision of clinical care. This summary normalizes information from multiple sources, and as a consequence, information in this document may materially change the coding, format and clinical context of patient data. In addition, data may be omitted in some cases. CLINICAL DECISIONS SHOULD BE BASED ON THE PRIMARY CLINICAL RECORDS. [facility] [email or web address] [facility]. provides no warranty or guarantee of the accuracy or completeness of information in this document.
[2025-01-24 14:16] VITALS: BP 156/87; PULSE 53; RESP 18; TEMP 36.1; O2SAT 98
== END 2025-01-24 14:18 | disposition home or self-care (01) ==
PROVIDERS: Emergency Provider Student in an Organized Health Care Education/Training Program; Visit Provider Student in an Organized Health Care Education/Training Program
DX: J06.9 Acute upper respiratory infection, unspecified (principal); M06.9 Rheumatoid arthritis, unspecified; I48.91 Unspecified atrial fibrillation; J20.9 Acute bronchitis, unspecified; Z79.01 Long term (current) use of anticoagulants; Z79.899 Other long term (current) drug therapy
CPT/HCPCS: 71046; 87631; 99282

== ENCOUNTER → 2025-02-06 | Outpatient (CLI) | payer OTHER, SELFPAY ==
--- NOTE | 2025-02-06 13:54 | SP.MBSS_ITS ---
Modified Barium Swallow Patient Information Study Date: 02/06/25 Study Time: 10:30 Direct Billable Minutes: 86 Total Minutes procedure & reportin Diagnosis: Dysphagia R13.10 Referring Physician: Reema Melendez Reason for Referral: He was recommended for MBSS by his PCP. The patient reports irritation in his throat for ~2 weeks (pain scale ~2/10). He reports a little coughing w/ food and drink for the past 2 months. He occ feels like his food gets stuck on the way down (~1-2X/week). He denied GERD symptoms. Medical History: PMH per pt and review of recent ER visit in EMR: Parkinson's disease, recent bronchitis, A fib, RA, prostate cancer, kidney stones. Current Diet Ordered: Regular textures / Thin liquids Dentition: Natural Teeth and Missing Teeth Mental Status: WNL Respiratory Status: Oxygenating on Room Air Penetration-Aspiration Scale Penetration-Aspiration Scale: OBJECTIVE ASSESSMENT OF SWALLOW FUNCTION (QUANTITATIVE ? PER TRIAL): PENETRATION / ASPIRATION SCALE (LIMA): 1 = does not enter airway 2 = enters airway/above vocal folds/ejected 3 = enters airway/above vocal folds/not ejected 4 = enters airway/contacts vocal folds/ejected 5 = enters airway/contacts vocal folds/not ejected 6 = enters airway/below vocal folds/ejected 7 = enters airway/below vocal folds/not ejected despite effort 8 = enters airway/below vocal folds/no effort VIDEOFLOROSCOPIC SCALE SCORE (LIMA): Grade I = aspiration of material that has penetrated into the laryngeal vestibule, intact cough reflex Grade II = aspiration < 10 % of the bolus, intact cough reflex Grade III = aspiration of < 10 % of the bolus, reduced cough reflex or aspiration of > 10 % of the bolus, intact cough reflex Grade IV = aspiration of > 10 % of the bolus, reduced cough reflex Penetration-Aspiration Scale Score Thin Liquid via teaspoon: Result: 1= does not enter airway Thin Liquid via teaspoon Trial 2: Result: 1= does not enter airway Thin Liquid via small single sip: cup: Result: 1= does not enter airway [place] Thick Liquid via small single sip: cup: Result: 2= enter airway/above vocal folds/ejected Pudding via teaspoon: Result: 1= does not enter airway Comment: Esophageal screen - Mild retention of pudding in the middle esophagus. 1/2 Cookie: Result: 1= does not enter airway Comment: Esophageal screen - Minimal retention of cookie in the middle and lower esophagus. Thin Liquid via single sip: straw: Result: 3= enters airways/above vocal folds/not ejected Thin Liquid via single sip: straw Effortful swallow: Result: 5= enters airways/contacts vocal folds/not ejected Thin Liquid via small single sip: cup Trial 2: Result: 5= enters airways/contacts vocal folds/not ejected Thin Liquid via small single sip: cup Effortful swallow: Result: 1= does not enter airway Comment: Trace post prandial aspiration Thin Liquid via small single sip: cup Effortful swallow Trial 2: Result: 1= does not enter airway Oral Phase Labial Seal: Interlabial escape, no progression to anterior lip Tongue Control During Bolus Hold: Posterior escape of less than half of bolus Bolus Preparation/Mastication: Disorganized chewing/mashing with solid pieces of bolus unchewed Bolus Transport/Lingual Motion: Slowed tongue motion Oral Residue: Majority of bolus remaining (piecemeal deglutition of pudding) Pharyngeal Phase Initiation of Pharyngeal Swallow: Bolus head in pyriforms Soft Palate Elevation: Trace column of contrast/air between soft palate and pharyngeal wall Laryngeal Elevation: Partial superior movement thyroid cart/partial apprx aryt- epig petiole Anterior Hyoid Excursion: Partial anterior movement Epiglottic Movement: Complete inversion Laryngeal Vestibule Closure at Height of Swallow: Incomplete; narrow column of air/contrast in laryngeal vestibule Pharyngeal Stripping Wave: Present - diminished Pharyngoesophageal Segment Opening: Parital distension and partial duration; parital obstruction of flow Tongue Base Retraction: Wide column of contrast between tongue base & post. pharyngeal wall Pharyngeal Residue: Collection of residue within or on pharyngeal structures Esophageal Phase Esophageal Clearance: Esophageal retention Diagnosis/Impression Diagnosis: Mild oropharyngeal dysphagia R13.12 MBS Impressions: The oral phase is primarily marked by... -Decreased bolus control w/ premature posterior loss of <1/2 of liquids to the pyriform sinuses prior to swallow onset. -Slowed tongue motion for A-P transport. -Piecemeal deglutition of pudding and cookie, which fully cleared w/ independent use of multiple swallows as needed. -Slowed mastication of cookie w/ small pieces appearing un-chewed. The pharyngeal phase is primarily marked by... -Decreased pharyngeal motility due to decreased TB retraction, pharyngeal stripping wave, and UES opening/duration of opening w/ mild-moderate pharyngeal residues, which mostly cleared w/ use of multiple swallows as needed. -Decreased airway closure during the swallow due to decreased anterior hyoid excursion and laryngeal elevation. Deep laryngeal penetration of thin liquids via straw w/ effortful swallow and thin liquids via cup. Effortful swallow and no straw was effective in decreasing aspiration risk. Volitional throat clear also helped to decrease risk for aspiration. No aspiration observed during the MBSS. The esophageal phase is marked by... -Mild retention of pudding in the middle esophagus. -Minimal retention of cookie in the middle and lower esophagus. -Patient reports no esophageal swallowing concerns or GERD symptoms. No immediate GI consult recommended; however, if worsening s/s of reflux, regurgitation, or sensation of esophageal retention of food/drink, would consider the patient for GI consult. Recommendations Diet: Regular Textures (Moisten dry textures, cut tough meats into small bites) and Thin Liquids Comment: Intermittent throat clear and re-swallow Compensatory Strategies: Small Bites (Chew Thoroughly), Small Sips (Hard/effortful swallows), No Straws, Slow Rate, Multiple Swallows, Alternate bites/solids and sips/liquids, Sitting upright and Remain sitting upright for 30 minutes after PO intake Recommend Repeat Modified Barium Swallow: TBD Need for Skilled Speech Therapy Services: Yes Comment: -Train the patient in use of strategies to decrease risk for aspiration. -Ongoing assessment of diet tolerance of recommended textures. -Train the patient in oropharyngeal exercise program to improve lingual control, airway closure, and pharyngeal motility (lingual resistance, Tonny, CTAR, Kathryn, Effortful). Education Completed: 1. Described result of evaluation. (Provided written handout of recommendations), 2. Pt understands evaluation & agrees with goals and treatment plan. and 7. Pt requires further education on strategies & risks. Status Active ST Patient: Active Contact Information [facility] Speech Therapy:: Aide Mcmillan M.A. [facility] Speech-Language Pathologist [facility] [address] [place] [address] [phone]
== END | disposition home or self-care (01) ==
LOC: RAD 10:26
PROVIDERS: Referring Provider Internal Medicine; Visit Provider Internal Medicine
DX: R13.10 Dysphagia, unspecified (principal)
CPT/HCPCS: 74230; 92611